=== PATIENT | male | born 1965 ===

== ENCOUNTER 2020-06-12 12:34 | Outpatient (REF) | payer MEDICARE, SELFPAY ==
[2020-06-12 13:50] LABS: INTERNATIONAL NORM RATIO 2.3 (0.9-1.1); Prothrombin Time 27.5 SEC (10.8-13.0)
== END 2020-06-12 12:35 | disposition home or self-care (01) ==
LOC: HO.WFDLDS 12:34
PROVIDERS: PCP Internal Medicine; Visit Provider Internal Medicine
DX: I82.90 Acute embolism and thrombosis of unspecified vein (principal); Z51.81 Encounter for therapeutic drug level monitoring
CPT/HCPCS: 36415; 85610

== ENCOUNTER 2020-06-28 12:27 | Outpatient (REF) | payer MEDICARE, MEDICAID, SELFPAY ==
[2020-06-28 13:23] LABS: Prothrombin Time 24.4 SEC (10.8-13.0)
== END 2020-06-28 12:28 | disposition home or self-care (01) ==
LOC: HO.WFDLDS 12:27
PROVIDERS: Visit Provider Internal Medicine
DX: K55.069 Acute infarction of intestine, part and extent unspecified (principal); Z51.81 Encounter for therapeutic drug level monitoring
CPT/HCPCS: 36415; 85610

== ENCOUNTER 2020-07-18 12:43 | Outpatient (REF) | payer MEDICARE, MEDICAID, SELFPAY ==
[2020-07-18 13:35] LABS: INTERNATIONAL NORM RATIO 1.7 (0.9-1.1); Prothrombin Time 20.5 SEC (10.8-13.0)
== END 2020-07-18 12:44 | disposition home or self-care (01) ==
LOC: HO.WFDLDS 12:43
PROVIDERS: PCP Hospitalist; Visit Provider Internal Medicine
DX: K55.059 Acute (reversible) ischemia of intestine, part and extent unspecified (principal); Z51.81 Encounter for therapeutic drug level monitoring
CPT/HCPCS: 36415; 85610

== ENCOUNTER 2020-09-12 11:58 | Outpatient (REF) | payer MEDICARE, MEDICAID, SELFPAY ==
[2020-09-12 13:39] LABS: INTERNATIONAL NORM RATIO 1.5 (0.9-1.1); Prothrombin Time 18.2 SEC (10.8-13.0)
== END 2020-09-12 11:59 | disposition home or self-care (01) ==
LOC: HO.WFDLDS 11:58
PROVIDERS: Visit Provider Hospitalist
DX: Z86.718 Personal history of other venous thrombosis and embolism (principal)
CPT/HCPCS: 36415; 85610

== ENCOUNTER 2020-09-22 12:15 | Outpatient (REF) | payer MEDICARE, MEDICAID, SELFPAY ==
[2020-09-22 14:14] LABS: INTERNATIONAL NORM RATIO 3.1 (0.9-1.1); Prothrombin Time 37.4 SEC (10.8-13.0)
== END 2020-09-22 12:16 | disposition home or self-care (01) ==
LOC: HO.WFDLDS 12:15
PROVIDERS: Visit Provider Hospitalist
DX: Z86.718 Personal history of other venous thrombosis and embolism (principal); Z79.01 Long term (current) use of anticoagulants; I73.9 Peripheral vascular disease, unspecified
CPT/HCPCS: 36415; 85610

== ENCOUNTER 2020-10-27 12:17 | Outpatient (REF) | payer MEDICARE, MEDICAID, SELFPAY ==
[2020-10-27 14:01] LABS: INTERNATIONAL NORM RATIO 2.3 (0.9-1.1); Prothrombin Time 27.9 SEC (10.8-13.0)
== END 2020-10-27 12:18 | disposition home or self-care (01) ==
LOC: HO.WFDLNP 12:17
PROVIDERS: Visit Provider Hospitalist
DX: Z86.718 Personal history of other venous thrombosis and embolism (principal)
CPT/HCPCS: 85610

== ENCOUNTER 2020-12-21 12:27 | Outpatient (REF) | payer MEDICARE, MEDICAID, SELFPAY ==
[2020-12-21 14:04] LABS: INTERNATIONAL NORM RATIO 3.1 (0.9-1.1); Prothrombin Time 37.5 SEC (10.8-13.0)
== END 2020-12-21 12:28 | disposition home or self-care (01) ==
LOC: HO.WFDLDS 12:27
PROVIDERS: Visit Provider Hospitalist
DX: Z86.718 Personal history of other venous thrombosis and embolism (principal)
CPT/HCPCS: 36415; 85610

== ENCOUNTER 2021-05-15 12:03 | Outpatient (REF) | payer MEDICARE, MEDICAID, SELFPAY ==
[2021-05-15 14:06] LABS: INTERNATIONAL NORM RATIO 1.7 (0.9-1.1); Prothrombin Time 19.3 SEC (9.9-13.0)
[2021-05-15 14:28] LABS: Anion Gap 12 (12-20); Blood Urea Nitrogen 11 mg/dL (9-16); Calcium 9.1 mg/dL (8.4-10.2); Carbon Dioxide 26 mmol/L (22-29); Chloride 106 mmol/L (96-108); Estimated Glomerular Filt Rate > 60; Glucose Fasting 122 mg/dL (60-99); Potassium 4.4 mmol/L (3.3-5.1); Sodium 140 mmol/L (135-145)
== END 2021-05-15 12:04 | disposition home or self-care (01) ==
LOC: HO.WFDLDS 12:03
PROVIDERS: Visit Provider Hospitalist
DX: Z00.00 Encounter for general adult medical examination without abnormal findings (principal); Z86.718 Personal history of other venous thrombosis and embolism
CPT/HCPCS: 36415; 80048; 85610

== ENCOUNTER 2021-06-12 11:49 | Outpatient (REF) | payer MEDICARE, MEDICAID, SELFPAY ==
[2021-06-12 14:05] LABS: INTERNATIONAL NORM RATIO 1.6 (0.9-1.1); Prothrombin Time 18.9 SEC (9.9-13.0)
== END 2021-06-12 11:50 | disposition home or self-care (01) ==
LOC: HO.WFDLDS 11:49
PROVIDERS: Visit Provider Hospitalist
DX: Z86.718 Personal history of other venous thrombosis and embolism (principal)
CPT/HCPCS: 36415; 85610

== ENCOUNTER 2022-01-02 09:13 | Outpatient (REF) | payer OTHER, SELFPAY ==
[2022-01-02 11:48] LABS: Hematocrit 40.9 % (42.0-52.0); Hemoglobin 13.4 g/dl (14.0-18.0); INTERNATIONAL NORM RATIO 2.4 (0.9-1.1); Mean Corpuscular HGB Conc 32.8 g/dl (31.0-36.0); Mean Corpuscular Hemoglobin 30.4 pg (27.0-33.0); Mean Corpuscular Volume 92.7 fL (80.0-98.0); Mean Platelet Volume 10.5 fL (9.4-12.4); Platelet Count 193 X10*3/uL (160-400); Prothrombin Time 27.3 SEC (9.9-13.0); Red Blood Count 4.41 X10*6/uL (4.60-5.80); Red Cell Distribution Width 13.4 % (11.0-16.0); White Blood Count 7.8 X10*3/uL (4.8-10.8)
[2022-01-02 12:18] LABS: TSH reflex Free T4 4.53 uIU/mL (0.32-4.0)
[2022-01-02 12:22] LABS: Alanine Aminotransferase 10 U/L (0-40); Albumin Level 4.2 g/dL (3.5-5.0); Alkaline Phosphatase 73 U/L (39-117); Anion Gap 12 (12-20); Aspartate Amino Transferase 12 U/L (5-37); Bilirubin Total 0.2 mg/dL (0.0-1.0); Blood Urea Nitrogen 12 mg/dL (9-16); Carbon Dioxide 27 mmol/L (22-29); Chloride 106 mmol/L (96-108); Cholesterol 175 mg/dL; Estimated Glomerular Filt Rate > 60; Glucose Fasting 102 mg/dL (60-99); HDL Cholesterol 31 mg/dL; LDL Cholesterol Calculated 113 mg/dl; Potassium 4.6 mmol/L (3.3-5.1); Sodium 140 mmol/L (135-145); Total Protein 7.8 g/dL (6.5-8.0); Triglycerides 157 mg/dL
[2022-01-02 13:11] LABS: Free T4 (Free Thyroxine) 1.03 ng/dL (0.71-1.85)
== END 2022-01-02 09:14 | disposition home or self-care (01) ==
LOC: HO.WFDLDS 09:13
PROVIDERS: Visit Provider Hospitalist
DX: Z00.00 Encounter for general adult medical examination without abnormal findings (principal); Z86.718 Personal history of other venous thrombosis and embolism
CPT/HCPCS: 36415; 80053; 80061; 84439; 84443; 85027; 85610

== ENCOUNTER 2022-10-01 12:09 | Outpatient (REF) | payer OTHER, SELFPAY ==
[2022-10-01 14:01] LABS: INTERNATIONAL NORM RATIO 2.9 (0.9-1.1); Prothrombin Time 35.4 SEC (10.0-13.1)
== END 2022-10-01 12:10 | disposition home or self-care (01) ==
LOC: HO.WFDLDS 12:09
PROVIDERS: Visit Provider Family Medicine
DX: Z79.01 Long term (current) use of anticoagulants (principal)
CPT/HCPCS: 36415; 85610

== ENCOUNTER 2022-12-10 15:03 | Emergency (ER) | payer OTHER, SELFPAY ==
--- NOTE | ~2022-12-10 | XR_ITS ---
EXAMINATION: XR tibia fibula LT 2V, XR tibia fibula RT 2V CLINICAL INFORMATION: Ulcer of the left lower extremity. Ulcer of the right lower extremity. COMPARISON: None. TECHNIQUE: 2 views of the right tibia/fibula. 2 views, 3 images of the left tibia/fibula. FINDINGS: Left tibia/fibula: No fracture or dislocation. Appropriate alignment of the knee and ankle. Diffuse smooth periosteal reaction along the mid to distal fibula. Overlying ulceration at the lateral aspect of the distal aspect of the lower leg. No osseous erosions. Right tibia/fibula: No fracture or cortical disruption. Appropriate alignment at the knee and ankle. Mild soft tissue swelling along the medial aspect of the ankle. No osseous erosions. XR/XR tibia fibula RT 2V IMPRESSION: 1. Soft tissue ulceration at the lateral aspect of the distal left lower leg. Smooth periosteal reaction along the mid to distal left fibula. This is nonspecific. This could be associated with chronic venous stasis. Chronic osteomyelitis possible. 2. No osseous erosions of either lower extremity.
--- NOTE | ~2022-12-10 | XR_ITS ---
EXAMINATION: XR tibia fibula LT 2V, XR tibia fibula RT 2V CLINICAL INFORMATION: Ulcer of the left lower extremity. Ulcer of the right lower extremity. COMPARISON: None. TECHNIQUE: 2 views of the right tibia/fibula. 2 views, 3 images of the left tibia/fibula. FINDINGS: Left tibia/fibula: No fracture or dislocation. Appropriate alignment of the knee and ankle. Diffuse smooth periosteal reaction along the mid to distal fibula. Overlying ulceration at the lateral aspect of the distal aspect of the lower leg. No osseous erosions. Right tibia/fibula: No fracture or cortical disruption. Appropriate alignment at the knee and ankle. Mild soft tissue swelling along the medial aspect of the ankle. No osseous erosions. XR/XR tibia fibula LT 2V IMPRESSION: 1. Soft tissue ulceration at the lateral aspect of the distal left lower leg. Smooth periosteal reaction along the mid to distal left fibula. This is nonspecific. This could be associated with chronic venous stasis. Chronic osteomyelitis possible. 2. No osseous erosions of either lower extremity.
[2022-12-10 15:41] VITALS: BP 95/56; PULSE 55; RESP 18; TEMP 37.2; O2SAT 99; BMI 26.4
--- NOTE | 2022-12-10 15:41 | ED_ITS ---
HPI - Skin/Abscess/Foreign Bdy General Chief complaint: Wound/Laceration <SHANNAN Campos - Last Filed: 12/10/22 15:46> Stated complaint: Ulcer <SHANNAN Campos - Last Filed: 12/10/22 15:46> Time Seen by Provider: 12/10/22 17:43 <SHANNAN Campos - Last Filed: 12/10/22 15:46> Source: patient, family and RN notes reviewed <Carlos Alberto Arroyo - Last Filed: 12/10/22 19:28> Mode of arrival: ambulatory <Carlos Alberto Arroyo - Last Filed: 12/10/22 19:28> Limitations: no limitations <Carlos Alberto Arroyo - Last Filed: 12/10/22 19:28> History of Present Illness HPI narrative: 57-year-old male with past medical history significant for peripheral vascular disease, tobacco dependence presents for evaluation of lower extremity wounds. Patient has had issues with venous stasis ulcers to the lower extremities for the last 15 years He has 1 to the left lateral ankle and 1 to the right medial ankle He reports that he is not diabetic but the wounds are from ?years of working 10- 12 hours on my feet and just neglecting my self. He denies any subjective fevers at home but states that he has had general malaise, decreased appetite, increased pain to the left ankle mostly and increased drainage. He was sent to the ER from [facility] earlier today He is not currently on antibiotics He reports that his symptoms have been worsening over the last 1 week <Carlos Alberto Arroyo - Last Filed: 12/10/22 19:28> Related Data Home medications: Home Medications Medication Instructions Recorded Confirmed buprenorphine 8 mg-naloxone 2 mg 20 mg sublingual DAILY 06/29/20 06/20/21 sublingual film gabapentin 800 mg tablet 800 mg PO QID 06/29/20 06/20/21 Previous Rx's Medication Instructions Recorded nicotine (polacrilex) 4 mg gum 4 mg PO Q2H PRN nicotine cravings 06/29/20 1 month #40 ea warfarin 5 mg tablet 10 mg PO DAILY #180 tabs 09/24/22 cephalexin 500 mg capsule 500 mg PO QID #40 caps 12/10/22 doxycycline hyclate 100 mg tablet 100 mg PO BID #20 tabs 12/10/22 <SHANNAN Campos - Last Filed: 12/10/22 15:46> Allergies/Adverse reactions: Allergies Allergy/AdvReac Type Severity Reaction Status Date / Time latex Allergy Intermediate Rash,Hives Verified 12/10/22 15:41 naproxen Allergy Intermediate Rash,Hives Verified 12/10/22 15:41 <SHANNAN Campos - Last Filed: 12/10/22 15:46> Review of Systems 2 Constitutional: Constitutional: Reports as per HPI, Denies fever(s) and Denies headache(s) <Carlos Alberto Arroyo - Last Filed: 12/10/22 19:28> ENT: Denies headache(s) <Carlos Alberto Arroyo - Last Filed: 12/10/22 19:28> Cardiovascular: Cardiovascular: Denies chest pain and Denies dyspnea <Carlos Alberto Arroyo - Last Filed: 12/10/22 19:28> Respiratory: Respiratory: Denies cough and Denies dyspnea <Carlos Alberto Arroyo - Last Filed: 12/10/22 19:28> Gastrointestinal: Gastrointestinal: Denies abdominal pain, Denies constipation and Denies vomiting <Carlos Alberto Arroyo - Last Filed: 12/10/22 19:28> Genitourinary: Genitourinary: Denies difficulty urinating and Denies dysuria <Carlos Alberto Arroyo - Last Filed: 12/10/22 19:28> Integumentary/Breasts: Skin/Breast: Reports wounds (Ulcer to bilateral lower extremities) <Carlos Alberto Arroyo - Last Filed: 12/10/22 19:28> Neurologic: Denies headache(s) and Denies focal weakness <Carlos Alberto Arroyo - Last Filed: 12/10/22 19:28> [facility] Past Medical History Surgical History: Surgical History No pertinent past surgical history <SHANNAN Campos - Last Filed: 12/10/22 15:46> Family History Family History: Family History Mother No problems noted. Father No problems noted. <SHANNAN Campos - Last Filed: 12/10/22 15:46> Social History Social History: Social History Housing: Apartment Alcohol intake: never Patient Tobacco Use Status: Current everyday Tobacco user Cigarettes Per Day: 10 e-Cigarette/Vaping Use: Never Used Second Hand Smoke Exposure: No Advance Directives: No Advance Directives Information Provided: Yes service: No Current occupational status: disabled <SHANNAN Campos - Last Filed: 12/10/22 15:46> Physical Exam Vital Signs: Vital Signs: Last Vital Signs Temp 99.1 F 12/10/22 18:13 Pulse 63 12/10/22 18:13 Resp 16 12/10/22 18:13 BP 94/60 12/10/22 18:13 Pulse Ox 100 12/10/22 18:13 O2 Del Method Room Air 12/10/22 18:13 BMI result Body Mass Index 26.4 <SHANNAN Campos - Last Filed: 12/10/22 15:46> Vital Signs: Last Vital Signs Temp 99.1 F 12/10/22 18:13 Pulse 63 12/10/22 18:13 Resp 16 12/10/22 18:13 BP 94/60 12/10/22 18:13 Pulse Ox 100 12/10/22 18:13 O2 Del Method Room Air 12/10/22 18:13 BMI result Body Mass Index 26.4 <Carlos Alberto Arroyo - Last Filed: 12/10/22 19:28> Const: General: healthy appearing, comfortable, no acute distress, alert and awake <Carlos Alberto Arroyo - Last Filed: 12/10/22 19:28> Nutritional Appearance: well nourished <Carlos Alberto Arroyo - Last Filed: 12/10/22 19:28> Orientation/consciousness: patient oriented x3 <Carlos Alberto Arroyo - Last Filed: 12/10/22 19:28> HEENT: Head: Yes normocephalic and Yes atraumatic <Carlos Alberto Arroyo - Last Filed: 12/10/22 19:28> Throat: Yes posterior oropharynx normal < Last Filed: 12/10/22 19:28> Eyes: Eyelids: Yes eyelids normal < Last Filed: 12/10/22 19:28> Conjunctivae: conjunctivae normal < Last Filed: 12/10/22 19:28> Sclerae: sclerae normal < Last Filed: 12/10/22 19:28> Corneas: corneas normal < Last Filed: 12/10/22 19:28> Pupils: Equal, round and reactive pupils present < Last Filed: 12/10/22 19:28> EOM: EOMs intact bilaterally < Last Filed: 12/10/22 19:28> Neck: Neck: Yes full ROM < Last Filed: 12/10/22 19:28> Resp: Effort & Inspection: normal respiratory effort, able to speak in com plete sentences, no audible wheezes and not labored < Last Filed: 12/10/22 19:28> Auscultation: clear to auscultation bilaterally < Last Filed: 12/10/22 19:28> Cardio: Rate: regular rate < Last Filed: 12/10/22 19:28> Rhythm: regular rhythm < Last Filed: 12/10/22 19:28> GI: Inspection: No distended < Last Filed: 12/10/22 19:28> Palpation (GI): Soft to palpation, not firm, nontender, no guarding and not rigid < Last Filed: 12/10/22 19:28> Auscultation: normoactive bowel sounds < Last Filed: 19:28> Skin: Other: Patient has a large, unstageable ulcer to left lateral lower extremity. Approximate 12 cm in diameter. He has a smaller stage II ulcer to the right medial lower extremity there is approximately 4 cm in diameter. Chronic venous stasis skin changes surrounding both wounds. Foul-smelling discharge left greater than right wound <Carlos Albertojosue Arroyo - Last Filed: 12/10/22 19:28> Neuro: General: patient oriented x3 <Carlos Alberto Arroyo - Last Filed: 12/10/22 19:28> Cranial nerves: Yes CN's II-XII intact bilaterally, Yes Equal, round and reactive pupils present and Yes Bilaterally intact EOM present <Carlos Alberto Meehany - Last Filed: 12/10/22 19:28> Cognition (Neuro): normal cognition <Carlos Alberto Meehany - Last Filed: 12/10/22 19:28> Course Course Course Narrative: This is an RME: Additional HPI, ROS, PE not included below will be deferred to primary provider. This is a 57-year-old male history of former IV drug abuse, DVT on warfarin presenting to the emergency department with chronic wounds to bilateral lower extremities that have been worsening over the past few days. Patient tells me these wounds are seeping. Was seen at [facility], they told him to come in to be evaluated. In explained to him that he will likely need IV antibiotics. Denies fevers and chills. Physical exam with a large open wound that is seeping to left lower extremity and a smaller wound to the right lower extremity. Plan blood cultures, lactic acid, PT INR, basic labs, x-rays. <SHANNAN Campos - Last Filed: 12/10/22 15:46> Reevaluation(s) Reevaluation #1: Patient has no white count, negative lactic acid, he is afebrile. No evidence of sepsis. We will treat his likely developing infected wounds with cephalexin and doxycycline. The patient will follow up with wound care. He was given return precautions <Carlos Alberto MichelleHarsha - Last Filed: 12/10/22 19:28> Time: 19:25 <Carlos Alberto Arroyo - Last Filed: 12/10/22 19:28> Medications Administered Discontinued Medications Generic Name Dose Route Start Last Admin Trade Name Freq PRN Reason Stop Dose Admin Sodium Chloride 1,000 mls @ 999 mls/hr 12/10/22 18:00 12/10/22 18:18 Ns IV 12/10/22 19:00 999 mls/hr .Q1H1M ROSANNE Administration <SHANNAN Campos - Last Filed: 12/10/22 15:46> Medications Administered Discontinued Medications Generic Name Dose Route Start Last Admin Trade Name Carmen PRN Reason Stop Dose Admin Sodium Chloride 1,000 mls @ 999 mls/hr 12/10/22 18:00 12/10/22 18:18 Ns IV 12/10/22 19:00 999 mls/hr .Q1H1M ROSANNE Administration <Carlos Alberto Arroyo - Last Filed: 12/10/22 19:28> Medical Decision Making Medical Decision Making MDM Narrative: Patient has chronic wounds that appear to be worsening over the last week possibly reflecting acute infection. X-rays are inconclusive for acute osteomyelitis versus chronic changes. Labs are pending at this time. The patient's blood pressure was soft at 95/56. He is not tachycardic, temperature is 99.0?. Labs pending at this time. <Carlos Alberto Arroyo - Last Filed: 12/10/22 19:28> Differential Diagnosis Cellulitis Chronic wounds Osteomyelitis Sepsis <Carlos Alberto Arroyo - Last Filed: 12/10/22 19:28> Lab Data Result Diagrams: 12/10/22 18:08 12/10/22 18:08 <SHANNAN Campos - Last Filed: 12/10/22 15:46> Labs: Lab Results 12/10/22 12/10/22 12/10/22 Range/Units 18:08 18:08 18:08 WBC 8.2 (4.8-10.8) X10*3/uL RBC 4.59 L (4.60-5.80) X10*6/uL Hgb 14.0 (14.0-18.0) g/dl Hct 41.4 L (42.0-52.0) % MCV 90.2 (80.0-98.0) fL MCH 30.5 (27.0-33.0) pg MCHC 33.8 (31.0-36.0) g/dl RDW 14.4 (11.0-16.0) % Plt Count 159 L (160-400) X10*3/uL MPV 9.6 (9.4-12.4) fL Immature Gran % (Auto) 0.2 (0.0-0.4) % Neut % (Auto) 66.2 (45-73) % Lymph % (Auto) 21.4 (20-40) % Glascock % (Auto) 2.9 (2-11) % Eos % (Auto) 8.3 H (0-4) % Baso % (Auto) 1.0 (0-2) % Lymph # (Auto) 1.8 (1.2-4.9) X10*3/uL Glascock # (Auto) 0.2 (0.1-1.2) X10*3/uL Eos # (Auto) 0.7 H (0.0-0.4) X10*3/uL Baso # (Auto) 0.1 (0.0-0.2) X10*3/uL Abs Immat Gran (auto) 0.02 (0.00-0.03) X10*3/uL Absolute Neuts (auto) 5.4 (2.0-8.3) x10*3/uL Absolute Nucleated RBC 0.000 (0.0-0.012) X10*3/uL Nucleated RBC % (auto) 0.0 (0.0-0.2) /100WBC ESR (0-15) MM/HR PT 22.3 H (10.0-13.1) SEC INR 1.9 H (0.9-1.1) Sodium 137 (135-145) mmol/L Potassium 4.5 (3.3-5.1) mmol/L Chloride 103 (96-108) mmol/L Carbon Dioxide 25 (22-29) mmol/L Anion Gap 14 (12-20) BUN 15 (9-16) mg/dL Creatinine 1.14 (0.5-1.4) mg/dL Estim Creat Clear Calc 78.8 Estimated GFR > 60 Random Glucose 197 H (60-115) mg/dL Lactic Acid (0.5-2.0) mmol/L Calcium 8.9 (8.4-10.2) mg/dL Magnesium 2.0 (1.6-2.6) mg/dL Total Bilirubin 0.6 (0.0-1.0) mg/dL AST 9 (5-37) U/L ALT 6 (0-40) U/L Alkaline Phosphatase 74 (39-117) U/L C-Reactive Protein (< or = 0.50) mg/dL C-React Prot High Sens Total Protein 7.5 (6.5-8.0) g/dL Albumin 4.3 (3.5-5.0) g/dL COVID-19 (ADDY) (Negative) COVID-19 Clin Com 12/10/22 12/10/22 12/10/22 Range/Units 18:08 18:08 18:08 WBC (4.8-10.8) X10*3/uL RBC (4.60-5.80) X10*6/uL Hgb (14.0-18.0) g/dl Hct (42.0-52.0) % MCV (80.0-98.0) fL MCH (27.0-33.0) pg MCHC (31.0-36.0) g/dl RDW (11.0-16.0) % Plt Count (160-400) X10*3/uL MPV (9.4-12.4) fL Immature Gran % (Auto) (0.0-0.4) % Neut % (Auto) (45-73) % Lymph % (Auto) (20-40) % Glascock % (Auto) (2-11) % Eos % (Auto) (0-4) % Baso % (Auto) (0-2) % Lymph # (Auto) (1.2-4.9) X10*3/uL Glascock # (Auto) (0.1-1.2) X10*3/uL Eos # (Auto) (0.0-0.4) X10*3/uL Baso # (Auto) (0.0-0.2) X10*3/uL Abs Immat Gran (auto) (0.00-0.03) X10*3/uL Absolute Neuts (auto) (2.0-8.3) x10*3/uL Absolute Nucleated RBC (0.0-0.012) X10*3/uL Nucleated RBC % (auto) (0.0-0.2) /100WBC ESR 27 H (0-15) MM/HR PT (10.0-13.1) SEC INR (0.9-1.1) Sodium (135-145) mmol/L Potassium (3.3-5.1) mmol/L Chloride (96-108) mmol/L Carbon Dioxide (22-29) mmol/L Anion Gap (12-20) BUN (9-16) mg/dL Creatinine (0.5-1.4) mg/dL Estim Creat Clear Calc Estimated GFR Random Glucose (60-115) mg/dL Lactic Acid (0.5-2.0) mmol/L Calcium (8.4-10.2) mg/dL Magnesium (1.6-2.6) mg/dL Total Bilirubin (0.0-1.0) mg/dL AST (5-37) U/L ALT (0-40) U/L Alkaline Phosphatase (39-117) U/L C-Reactive Protein 1.87 H (< or = 0.50) mg/dL C-React Prot High Sens Cancelled Total Protein (6.5-8.0) g/dL Albumin (3.5-5.0) g/dL COVID-19 (ADDY) (Negative) COVID-19 Clin Com 12/10/22 12/10/22 Range/Units 18:09 18:16 WBC (4.8-10.8) X10*3/uL RBC (4.60-5.80) X10*6/uL Hgb (14.0-18.0) g/dl Hct (42.0-52.0) % MCV (80.0-98.0) fL MCH (27.0-33.0) pg MCHC (31.0-36.0) g/dl RDW (11.0-16.0) % Plt Count (160-400) X10*3/uL MPV (9.4-12.4) fL Immature Gran % (Auto) (0.0-0.4) % Neut % (Auto) (45-73) % Lymph % (Auto) (20-40) % Glascock % (Auto) (2-11) % Eos % (Auto) (0-4) % Baso % (Auto) (0-2) % Lymph # (Auto) (1.2-4.9) X10*3/uL Glascock # (Auto) (0.1-1.2) X10*3/uL Eos # (Auto) (0.0-0.4) X10*3/uL Baso # (Auto) (0.0-0.2) X10*3/uL Abs Immat Gran (auto) (0.00-0.03) X10*3/uL Absolute Neuts (auto) (2.0-8.3) x10*3/uL Absolute Nucleated RBC (0.0-0.012) X10*3/uL Nucleated RBC % (auto) (0.0-0.2) /100WBC ESR (0-15) MM/HR PT (10.0-13.1) SEC INR (0.9-1.1) Sodium (135-145) mmol/L Potassium (3.3-5.1) mmol/L Chloride (96-108) mmol/L Carbon Dioxide (22-29) mmol/L Anion Gap (12-20) BUN (9-16) mg/dL Creatinine (0.5-1.4) mg/dL Estim Creat Clear Calc Estimated GFR Random Glucose (60-115) mg/dL Lactic Acid 1.9 (0.5-2.0) mmol/L Calcium (8.4-10.2) mg/dL Magnesium (1.6-2.6) mg/dL Total Bilirubin (0.0-1.0) mg/dL AST (5-37) U/L ALT (0-40) U/L Alkaline Phosphatase (39-117) U/L C-Reactive Protein (< or = 0.50) mg/dL C-React Prot High Sens Total Protein (6.5-8.0) g/dL Albumin (3.5-5.0) g/dL COVID-19 (ADDY) Negative (Negative) COVID-19 Clin Com See Note <SHANNAN Campos - Last Filed: 12/10/22 15:46> Lab Results 12/10/22 12/10/22 12/10/22 Range/Units 18:08 18:08 18:08 WBC 8.2 (4.8-10.8) X10*3/uL RBC 4.59 L (4.60-5.80) X10*6/uL Hgb 14.0 (14.0-18.0) g/dl Hct 41.4 L (42.0-52.0) % MCV 90.2 (80.0-98.0) fL MCH 30.5 (27.0-33.0) pg MCHC 33.8 (31.0-36.0) g/dl RDW 14.4 (11.0-16.0) % Plt Count 159 L (160-400) X10*3/uL MPV 9.6 (9.4-12.4) fL Immature Gran % (Auto) 0.2 (0.0-0.4) % Neut % (Auto) 66.2 (45-73) % Lymph % (Auto) 21.4 (20-40) % Glascock % (Auto) 2.9 (2-11) % Eos % (Auto) 8.3 H (0-4) % Baso % (Auto) 1.0 (0-2) % Lymph # (Auto) 1.8 (1.2-4.9) X10*3/uL Glascock # (Auto) 0.2 (0.1-1.2) X10*3/uL Eos # (Auto) 0.7 H (0.0-0.4) X10*3/uL Baso # (Auto) 0.1 (0.0-0.2) X10*3/uL Abs Immat Gran (auto) 0.02 (0.00-0.03) X10*3/uL Absolute Neuts (auto) 5.4 (2.0-8.3) x10*3/uL Absolute Nucleated RBC 0.000 (0.0-0.012) X10*3/uL Nucleated RBC % (auto) 0.0 (0.0-0.2) /100WBC ESR (0-15) MM/HR PT 22.3 H (10.0-13.1) SEC INR 1.9 H (0.9-1.1) Sodium 137 (135-145) mmol/L Potassium 4.5 (3.3-5.1) mmol/L Chloride 103 (96-108) mmol/L Carbon Dioxide 25 (22-29) mmol/L Anion Gap 14 (12-20) BUN 15 (9-16) mg/dL Creatinine 1.14 (0.5-1.4) mg/dL Estim Creat Clear Calc 78.8 Estimated GFR > 60 Random Glucose 197 H (60-115) mg/dL Lactic Acid (0.5-2.0) mmol/L Calcium 8.9 (8.4-10.2) mg/dL Magnesium 2.0 (1.6-2.6) mg/dL Total Bilirubin 0.6 (0.0-1.0) mg/dL AST 9 (5-37) U/L ALT 6 (0-40) U/L Alkaline Phosphatase 74 (39-117) U/L C-Reactive Protein (< or = 0.50) mg/dL C-React Prot High Sens Total Protein 7.5 (6.5-8.0) g/dL Albumin 4.3 (3.5-5.0) g/dL COVID-19 (ADDY) (Negative) COVID-19 Clin Com 12/10/22 12/10/22 12/10/22 Range/Units 18:08 18:08 18:08 WBC (4.8-10.8) X10*3/uL RBC (4.60-5.80) X10*6/uL Hgb (14.0-18.0) g/dl Hct (42.0-52.0) % MCV (80.0-98.0) fL MCH (27.0-33.0) pg MCHC (31.0-36.0) g/dl RDW (11.0-16.0) % Plt Count (160-400) X10*3/uL MPV (9.4-12.4) fL Immature Gran % (Auto) (0.0-0.4) % Neut % (Auto) (45-73) % Lymph % (Auto) (20-40) % Glascock % (Auto) (2-11) % Eos % (Auto) (0-4) % Baso % (Auto) (0-2) % Lymph # (Auto) (1.2-4.9) X10*3/uL Glascock # (Auto) (0.1-1.2) X10*3/uL Eos # (Auto) (0.0-0.4) X10*3/uL Baso # (Auto) (0.0-0.2) X10*3/uL Abs Immat Gran (auto) (0.00-0.03) X10*3/uL Absolute Neuts (auto) (2.0-8.3) x10*3/uL Absolute Nucleated RBC (0.0-0.012) X10*3/uL Nucleated RBC % (auto) (0.0-0.2) /100WBC ESR 27 H (0-15) MM/HR PT (10.0-13.1) SEC INR (0.9-1.1) Sodium (135-145) mmol/L Potassium (3.3-5.1) mmol/L Chloride (96-108) mmol/L Carbon Dioxide (22-29) mmol/L Anion Gap (12-20) BUN (9-16) mg/dL Creatinine (0.5-1.4) mg/dL Estim Creat Clear Calc Estimated GFR Random Glucose (60-115) mg/dL Lactic Acid (0.5-2.0) mmol/L Calcium (8.4-10.2) mg/dL Magnesium (1.6-2.6) mg/dL Total Bilirubin (0.0-1.0) mg/dL AST (5-37) U/L ALT (0-40) U/L Alkaline Phosphatase (39-117) U/L C-Reactive Protein 1.87 H (< or = 0.50) mg/dL C-React Prot High Sens Cancelled Total Protein (6.5-8.0) g/dL Albumin (3.5-5.0) g/dL COVID-19 (ADDY) (Negative) COVID-19 Clin Com 12/10/22 12/10/22 Range/Units 18:09 18:16 WBC (4.8-10.8) X10*3/uL RBC (4.60-5.80) X10*6/uL Hgb (14.0-18.0) g/dl Hct (42.0-52.0) % MCV (80.0-98.0) fL MCH (27.0-33.0) pg MCHC (31.0-36.0) g/dl RDW (11.0-16.0) % Plt Count (160-400) X10*3/uL MPV (9.4-12.4) fL Immature Gran % (Auto) (0.0-0.4) % Neut % (Auto) (45-73) % Lymph % (Auto) (20-40) % Glascock % (Auto) (2-11) % Eos % (Auto) (0-4) % Baso % (Auto) (0-2) % Lymph # (Auto) (1.2-4.9) X10*3/uL Glascock # (Auto) (0.1-1.2) X10*3/uL Eos # (Auto) (0.0-0.4) X10*3/uL Baso # (Auto) (0.0-0.2) X10*3/uL Abs Immat Gran (auto) (0.00-0.03) X10*3/uL Absolute Neuts (auto) (2.0-8.3) x10*3/uL Absolute Nucleated RBC (0.0-0.012) X10*3/uL Nucleated RBC % (auto) (0.0-0.2) /100WBC ESR (0-15) MM/HR PT (10.0-13.1) SEC INR (0.9-1.1) Sodium (135-145) mmol/L Potassium (3.3-5.1) mmol/L Chloride (96-108) mmol/L Carbon Dioxide (22-29) mmol/L Anion Gap (12-20) BUN (9-16) mg/dL Creatinine (0.5-1.4) mg/dL Estim Creat Clear Calc Estimated GFR Random Glucose (60-115) mg/dL Lactic Acid 1.9 (0.5-2.0) mmol/L Calcium (8.4-10.2) mg/dL Magnesium (1.6-2.6) mg/dL Total Bilirubin (0.0-1.0) mg/dL AST (5-37) U/L ALT (0-40) U/L Alkaline Phosphatase (39-117) U/L C-Reactive Protein (< or = 0.50) mg/dL C-React Prot High Sens Total Protein (6.5-8.0) g/dL Albumin (3.5-5.0) g/dL COVID-19 (ADDY) Negative (Negative) COVID-19 Clin Com See Note <Carlos Alberto Arroyo - Last Filed: 12/10/22 19:28> Discharge Plan Discharge Clinical Impression: Venous stasis ulcers of both lower extremities <SHANNAN Campos - Last Filed: 12/10/22 15:46> Patient Disposition: Home, Self-Care <SHANNAN Campos - Last Filed: 12/10/22 15:46> Instructions: Chronic Wounds (ED) <SHANNAN Campos - Last Filed: 12/10/22 15:46> Additional Instructions: Take both antibiotics as directed for 10 days. Follow-up with wound care as planned. Return for new or worsening symptoms, especially if you develop a fever <SHANNAN Campos - Last Filed: 12/10/22 15:46> Prescriptions: New cephalexin 500 mg capsule 500 mg PO QID Qty: 40 0RF doxycycline hyclate 100 mg tablet 100 mg PO BID Qty: 20 0RF No Action warfarin 5 mg tablet 10 mg PO DAILY Qty: 180 2RF gabapentin 800 mg tablet 800 mg PO QID buprenorphine-naloxone 8-2 mg film 20 mg sublingual DAILY nicotine (polacrilex) 4 mg gum 4 mg PO Q2H PRN (Reason: nicotine cravings) 30 Days Qty: 40 2RF <SHANNAN Campos - Last Filed: 12/10/22 15:46>
[2022-12-10 18:13] VITALS: BP 94/60; PULSE 63; RESP 16; TEMP 37.3; O2SAT 100
[2022-12-10 18:16] LABS: MANUAL DIFF FLAG NO
[2022-12-10] MEDS: 0.9 % Sodium Chloride 1,000 ML 999 ML IV (18:18)
[2022-12-10 18:20] LABS: Basophils Absolute Auto 0.1 X10*3/uL (0.0-0.2); Eosinophils Absolute Auto 0.7 X10*3/uL (0.0-0.4); Eosinophils Percent Auto 8.3 % (0-4); Hematocrit 41.4 % (42.0-52.0); Imm Gran Abs Auto 0.02 X10*3/uL (0.00-0.03); Imm Gran Pct Auto 0.2 % (0.0-0.4); Lymphocytes Absolute Auto 1.8 X10*3/uL (1.2-4.9); Lymphocytes Percent Auto 21.4 % (20-40); Mean Corpuscular HGB Conc 33.8 g/dl (31.0-36.0); Mean Corpuscular Hemoglobin 30.5 pg (27.0-33.0); Mean Corpuscular Volume 90.2 fL (80.0-98.0); Mean Platelet Volume 9.6 fL (9.4-12.4); Monocytes Absolute Auto 0.2 X10*3/uL (0.1-1.2); Monocytes Percent Auto 2.9 % (2-11); Neutrophils Absolute Auto 5.4 x10*3/uL (2.0-8.3); Neutrophils Percent Auto 66.2 % (45-73); Platelet Count 159 X10*3/uL (160-400); Red Blood Count 4.59 X10*6/uL (4.60-5.80); Red Cell Distribution Width 14.4 % (11.0-16.0); White Blood Count 8.2 X10*3/uL (4.8-10.8)
[2022-12-10 18:29] LABS: INTERNATIONAL NORM RATIO 1.9 (0.9-1.1); Prothrombin Time 22.3 SEC (10.0-13.1)
[2022-12-10 18:33] LABS: COVID-19 Test Negative (Negative); IDNOW Serial# 08D9AD1C
[2022-12-10 18:35] LABS: Lactic Acid 1.9 mmol/L (0.5-2.0)
[2022-12-10 18:39] LABS: Alanine Aminotransferase 6 U/L (0-40); Albumin Level 4.3 g/dL (3.5-5.0); Alkaline Phosphatase 74 U/L (39-117); Anion Gap 14 (12-20); Aspartate Amino Transferase 9 U/L (5-37); Bilirubin Total 0.6 mg/dL (0.0-1.0); Blood Urea Nitrogen 15 mg/dL (9-16); Calcium 8.9 mg/dL (8.4-10.2); Carbon Dioxide 25 mmol/L (22-29); Chloride 103 mmol/L (96-108); Creatinine Clr Calc Pharmacy 78.8; Estimated Glomerular Filt Rate > 60; Glucose Random 197 mg/dL (60-115); Potassium 4.5 mmol/L (3.3-5.1); Sodium 137 mmol/L (135-145); Total Protein 7.5 g/dL (6.5-8.0)
--- NOTE | 2022-12-10 18:49 | PC.NURSE ---
Large circular wound to l lateral leg and right medial leg, pictures placed in chart by SHANNAN Carcamo. IV established. +CMS to b/l ext. with +pedal pulsews felt. Labs sent, fluids started.
[2022-12-10 19:05] LABS: C Reactive Protein 1.87 mg/dL (< or = 0.50)
[2022-12-10 19:12] LABS: Erythrocyte Sedimentation Rate 27 MM/HR (0-15)
[2022-12-10] MEDS: Doxycycline Monohydrate 100 MG CAPSULE PO (19:40)
[2022-12-10] MEDS: cephALEXin 500 MG CAPSULE PO (19:40)
[2022-12-10 19:43] VITALS: BP 113/73; PULSE 57; RESP 16; TEMP 36.6; O2SAT 99
--- NOTE | 2022-12-10 21:00 | PC.NURSE ---
this rn wrapped bilateral leg wounds with nonstick dressing and gauze wrap pt tolerated well. pt at bedside. pt ambulatory at discharge. VSS. skin pwd. pt provided with discharge packet. pt verbalized understanding of discharge plan
== END 2022-12-10 21:16 | disposition home or self-care (01) ==
PROVIDERS: Physician Assistant; Emergency Provider Emergency Medicine; PCP Hospitalist
DX: I83.218 Varicose veins of right lower extremity with both ulcer of other part of lower extremity and inflammation (principal); I83.228 Varicose veins of left lower extremity with both ulcer of other part of lower extremity and inflammation; F11.20 Opioid dependence, uncomplicated; F17.200 Nicotine dependence, unspecified, uncomplicated; Z20.822 Contact with and (suspected) exposure to COVID-19
CPT/HCPCS: 36415; 73590; 80053; 83605; 83735; 85025; 85610; 85652; 86140; 87040; 87635; 99283; 99284

== ENCOUNTER 2023-04-09 14:53 | Inpatient (IN) | payer OTHER, SELFPAY ==
[2023-04-09 14:57] VITALS: BP 125/68; PULSE 77; RESP 14; TEMP 37; O2SAT 99; BMI 30.5
--- NOTE | 2023-04-09 14:58 | ED.GENADULT ---
HPI - General Adult General Chief complaint: Wound/Laceration Stated complaint: R and L Leg Wound Time Seen by Provider: 04/09/23 17:18 Source: patient Mode of arrival: ambulatory Limitations: no limitations History of Present Illness HPI narrative: Patient comes to the emergency room complaining of maggots in his left lower extremity. Patient states that 2 days ago he noted that under an eschar, there were maggots falling off. Today, patient removed the eschar and more maggots came out. Patient went to the [facility], they rinsed the wound and remove as many meds as possible, sent the patient to emergency room. Patient complaining of localized pain, no fever chills. Related Data Home Medications Medication Instructions Recorded Confirmed buprenorphine 8 mg-naloxone 2 mg 2 film sublingual DAILY 06/29/20 04/09/23 sublingual film gabapentin 800 mg tablet 800 mg PO QID 06/29/20 04/09/23 warfarin 5 mg tablet 7.5 mg PO DAILY 04/09/23 04/09/23 Previous Rx's Medication Instructions Recorded nicotine (polacrilex) 4 mg gum 4 mg PO Q2H PRN nicotine cravings 06/29/20 1 month #40 ea Allergies Allergy/AdvReac Type Severity Reaction Status Date / Time latex Allergy Intermediate Rash,Hives Verified 12/10/22 15:41 naproxen Allergy Intermediate Rash,Hives Verified 12/10/22 15:41 Review of Systems Review of Systems: Constitutional : No Weight loss, No Fever, No Chills, No Night Sweats, No Fatigue, No Malaise ENT/Mouth : No Hearing loss, No Ear Pain, No Nasal Congestion, No Sinus Pain, No Hoarseness, No sore throat, No Rhinorrhea, No Swallowing Difficulty Eyes: No Eye Pain, No Swelling, No Redness, No Foreign Body, No Discharge, No Vision Changes Cardiovascular : No Chest Pain, No SOB, No Dyspnea on Exertion, No Orthopnea, No Edema, No Palpitations Respiratory : No Cough, No Sputum, No Wheezing, No Smoke Exposure, No Dyspnea Gastrointestinal : No Nausea, No Vomiting, No Diarrhea, No Constipation, No abdominal Pain, No Hematochezia, No Melena Genitourinary : no irregular bleeding, No Dysuria, No Urinary Frequency, No Hematuria, No Urinary Incontinence, No Urgency, No Flank Pain, No Urinary Flow Changes, No Hesitancy Musculoskeletal : No joint pain, No Myalgias, No Joint Swelling Skin : Complaining of a chronic left lower extremity wound with maggots and localized pain Neuro : No Weakness, No Numbness, No Paresthesias, No Loss of Consciousness, No Dizziness, No Headache Psych : No Anxiety/Panic, No Depression, No SI/HI/AH/VH, No Social Issues, Heme/Lymph: No Bruising, No Bleeding,No Lymphadenopathy Endocrine : No Polyuria, No Polydipsia, No Temperature Intolerance [facility] Past Medical History Medical History (Updated 04/09/23 @ 18:34 by Jenn Jefferson MD) Opioid use disorder Peripheral vascular disease of extremity Venous thromboembolism Surgical History No pertinent past surgical history Family History Family History Mother No problems noted. Father No problems noted. Social History Social History Housing: Apartment Alcohol intake: never Patient Tobacco Use Status: Current everyday Tobacco user Cigarettes Per Day: 10 Smoked in Last 30 Days: Yes e-Cigarette/Vaping Use: Never Used Second Hand Smoke Exposure: No Use of substances other than those prescribed or required for medical reasons: No Advance Directives: No Advance Directives Information Provided: Yes service: No Current occupational status: disabled Physical Exam ED Vital Signs: Vital Signs - 24 hr 04/09/23 14:57 04/09/23 17:50 Temperature 98.6 F Pulse Rate 77 64 Respiratory Rate 14 Blood Pressure 125/68 125/74 Pulse Oximetry 99 99 Oxygen Delivery Method Room Air Room Air BMI result Body Mass Index 30.5 Const Other: Appearance: Alert. Oriented X3. No acute distress. Eyes: Pupils equal, round and reactive to light. ENT: Pharynx normal. Neck: Normal inspection. Neck supple. No lymph nodes noted. No crepitus CVS: Normal heart rate and rhythm. Pulses normal. Normal S1 and S2 Respiratory: No respiratory distress. Breath sounds normal. No Wheezing. No rales Abdomen: Soft and nontender. No rigidity. No distention. Skin: Skin warm and dry. Normal skin color. See extremity below Extremities: No lower extremity edema. Chronic wound 1 cm x 1 cm in the right lower extremity, no maggots present. Chronic 10 cm wound with maggots present, see pictures below Neuro: Oriented X 3. No motor deficit. No sensory deficit. Moving all extremities. No slurred speech. CN 2 through 12 grossly intact Psych: calm, cooperative, normal affect Course Course Course Narrative: RME: 57-year-old male with past medical history significant for peripheral vascular disease, tobacco dependence presents for evaluation of maggots to E, sent in by wound care. Patient reports he noted maggots 2 days ago. Admits wound care cleaned out as many maggots as they could and was sent to the ED Lower extremities bilaterally wrapped, not evaluated in triage Labs including lactic/blood cultures ordered Full HPI, ROS and PE to be performed by primary ED provider. Medications Administered Generic Name Dose Route Start Last Admin Trade Name Freq PRN Reason Stop Dose Admin Sodium Chloride 1,000 mls @ 999 mls/hr 04/09/23 17:55 04/09/23 18:09 Ns IVCONT 04/09/23 18:55 999 mls/hr .Q1H1M ONE Administration Discontinued Medications Generic Name Dose Route Start Last Admin Trade Name Freq PRN Reason Stop Dose Admin Piperacillin Sod/Tazobactam 50 mls @ 100 mls/hr 04/09/23 17:55 04/09/23 18:09 Sod 3.375 gm/ Sodium Chloride IV 04/09/23 18:24 100 mls/hr ONCE ONE Administration Medical Decision Making Medical Decision Making [facility] Narrative: -my interpretation of labs: White blood cell count 7.5, lactic acid normal. Vital stable, not hypotensive, not tachycardic, Sepsis not suspected. -patient was started on IV fluids, Zosyn and vancomycin -recommendations for dressing from Dr. Ward: Jw, wet to dry -I discussed the patient with Dr. Flores, patient being admitted Differential Diagnosis Differential Diagnoses: The differential diagnosis associated with the presentation includes (Cellulitis, abscess, chronic wound) Admission/Observation Consideration of admission/observation: Escalation of care including admission/observation considered Consult Healthcare Provider Management of the patient was discussed with: Hospitalist and Paste Thinner Lab Data [facility] Lab Attestation statement: I reviewed the patient's lab results. 04/09/23 15:52 04/09/23 15:52 Labs: Lab Results 04/09/23 04/09/23 04/09/23 Range/Units 15:52 15:52 15:52 WBC 7.5 (4.8-10.8) X10*3/uL RBC 4.16 L (4.60-5.80) X10*6/uL Hgb 12.7 L (14.0-18.0) g/dl Hct 37.7 L (42.0-52.0) % MCV 90.6 (80.0-98.0) fL MCH 30.5 (27.0-33.0) pg MCHC 33.7 (31.0-36.0) g/dl RDW 13.9 (11.0-16.0) % Plt Count 167 (160-400) X10*3/uL MPV 9.6 (9.4-12.4) fL Immature Gran % (Auto) 0.1 (0.0-0.4) % Neut % (Auto) 39.4 L (45-73) % Lymph % (Auto) 31.9 (20-40) % [place] % (Auto) 6.6 (2-11) % Eos % (Auto) 21.2 H (0-4) % Baso % (Auto) 0.8 (0-2) % Lymph # (Auto) 2.4 (1.2-4.9) X10*3/uL [place] # (Auto) 0.5 (0.1-1.2) X10*3/uL Eos # (Auto) 1.6 H (0.0-0.4) X10*3/uL Baso # (Auto) 0.1 (0.0-0.2) X10*3/uL Abs Immat Gran (auto) 0.01 (0.00-0.03) X10*3/uL Absolute Neuts (auto) 2.9 (2.0-8.3) x10*3/uL Absolute Nucleated RBC 0.000 (0.0-0.012) X10*3/uL Nucleated RBC % (auto) 0.0 (0.0-0.2) /100WBC Smear Tech's Comments VERIFIED PT 13.3 (11.1-13.3) SEC INR 1.1 (0.9-1.1) Sodium 136 (135-145) mmol/L Potassium 4.3 (3.3-5.1) mmol/L Chloride 107 (96-108) mmol/L Carbon Dioxide 22 (22-29) mmol/L Anion Gap 11 L (12-20) BUN 11 (9-16) mg/dL Creatinine 1.05 (0.5-1.4) mg/dL Estim Creat Clear Calc 93.6 Estimated GFR > 60 Random Glucose 125 H (60-115) mg/dL Lactic Acid (0.5-2.0) mmol/L Calcium 8.8 (8.4-10.2) mg/dL Magnesium 2.3 (1.6-2.6) mg/dL Total Bilirubin 0.4 (0.0-1.0) mg/dL Direct Bilirubin 0.1 (0.0-0.5) mg/dL AST 10 (5-37) U/L ALT 6 (0-40) U/L Alkaline Phosphatase 77 (39-117) U/L Total Protein 7.9 (6.5-8.0) g/dL Albumin 3.8 (3.5-5.0) g/dL 04/09/23 Range/Units 15:52 WBC (4.8-10.8) X10*3/uL RBC (4.60-5.80) X10*6/uL Hgb (14.0-18.0) g/dl Hct (42.0-52.0) % MCV (80.0-98.0) fL MCH (27.0-33.0) pg MCHC (31.0-36.0) g/dl RDW (11.0-16.0) % Plt Count (160-400) X10*3/uL MPV (9.4-12.4) fL Immature Gran % (Auto) (0.0-0.4) % Neut % (Auto) (45-73) % Lymph % (Auto) (20-40) % [place] % (Auto) (2-11) % Eos % (Auto) (0-4) % Baso % (Auto) (0-2) % Lymph # (Auto) (1.2-4.9) X10*3/uL [place] # (Auto) (0.1-1.2) X10*3/uL Eos # (Auto) (0.0-0.4) X10*3/uL Baso # (Auto) (0.0-0.2) X10*3/uL Abs Immat Gran (auto) (0.00-0.03) X10*3/uL Absolute Neuts (auto) (2.0-8.3) x10*3/uL Absolute Nucleated RBC (0.0-0.012) X10*3/uL Nucleated RBC % (auto) (0.0-0.2) /100WBC Smear Tech's Comments PT (11.1-13.3) SEC INR (0.9-1.1) Sodium (135-145) mmol/L Potassium (3.3-5.1) mmol/L Chloride (96-108) mmol/L Carbon Dioxide (22-29) mmol/L Anion Gap (12-20) BUN (9-16) mg/dL Creatinine (0.5-1.4) mg/dL Estim Creat Clear Calc Estimated GFR Random Glucose (60-115) mg/dL Lactic Acid 1.0 (0.5-2.0) mmol/L Calcium (8.4-10.2) mg/dL Magnesium (1.6-2.6) mg/dL Total Bilirubin (0.0-1.0) mg/dL Direct Bilirubin (0.0-0.5) mg/dL AST (5-37) U/L ALT (0-40) U/L Alkaline Phosphatase (39-117) U/L Total Protein (6.5-8.0) g/dL Albumin (3.5-5.0) g/dL Critical Care Time Critical Care Time Critical Care Time: Yes Total Critical Care Time: 60 Attestation: I have personally provided critical care time. Time includes review of lab data, radiology results, discussion with consultants, and monitoring for potential decompensation. Intervention performed as documented. Discharge Plan Discharge Clinical Impression: Maggot infestation, Cellulitis of anterior lower leg Patient Disposition: Admitted As Inpatient Prescriptions: No Action warfarin 5 mg tablet 7.5 mg PO DAILY gabapentin 800 mg tablet 800 mg PO QID buprenorphine-naloxone 8-2 mg film 2 film sublingual DAILY nicotine (polacrilex) 4 mg gum 4 mg PO Q2H PRN (Reason: nicotine cravings) 30 Days Qty: 40 2RF
[2023-04-09 16:02] LABS: Basophils Absolute Auto 0.1 X10*3/uL (0.0-0.2); Basophils Percent Auto 0.8 % (0-2); Eosinophils Absolute Auto 1.6 X10*3/uL (0.0-0.4); Eosinophils Percent Auto 21.2 % (0-4); Hematocrit 37.7 % (42.0-52.0); Hemoglobin 12.7 g/dl (14.0-18.0); Imm Gran Abs Auto 0.01 X10*3/uL (0.00-0.03); Imm Gran Pct Auto 0.1 % (0.0-0.4); Lymphocytes Absolute Auto 2.4 X10*3/uL (1.2-4.9); Lymphocytes Percent Auto 31.9 % (20-40); MANUAL DIFF FLAG SCAN; Mean Corpuscular HGB Conc 33.7 g/dl (31.0-36.0); Mean Corpuscular Hemoglobin 30.5 pg (27.0-33.0); Mean Corpuscular Volume 90.6 fL (80.0-98.0); Mean Platelet Volume 9.6 fL (9.4-12.4); Monocytes Absolute Auto 0.5 X10*3/uL (0.1-1.2); Monocytes Percent Auto 6.6 % (2-11); Neutrophils Absolute Auto 2.9 x10*3/uL (2.0-8.3); Neutrophils Percent Auto 39.4 % (45-73); Platelet Count 167 X10*3/uL (160-400); Red Blood Count 4.16 X10*6/uL (4.60-5.80); Red Cell Distribution Width 13.9 % (11.0-16.0); SCAN SMEAR FLAG 1; White Blood Count 7.5 X10*3/uL (4.8-10.8)
--- NOTE | 2023-04-09 16:02 | MHC.EDTECH ---
PATIENT BLOOD DRAWN INCLUDING 1 SETS OF BLOOD CULTURE AND LACTIC ACID WAS DRAWN ON TOP OF PATIENT LEFT HAND ,2ND SETS OF BLOOD CULTURE DRAWN ON TOP OF PATIENT RIGHT HAND ALL SENT TO LAB .
[2023-04-09 16:08] LABS: INTERNATIONAL NORM RATIO 1.1 (0.9-1.1); Prothrombin Time 13.3 SEC (11.1-13.3)
[2023-04-09 16:17] LABS: Alanine Aminotransferase 6 U/L (0-40); Albumin Level 3.8 g/dL (3.5-5.0); Alkaline Phosphatase 77 U/L (39-117); Anion Gap 11 (12-20); Aspartate Amino Transferase 10 U/L (5-37); Bilirubin Direct 0.1 mg/dL (0.0-0.5); Bilirubin Total 0.4 mg/dL (0.0-1.0); Blood Urea Nitrogen 11 mg/dL (9-16); Calcium 8.8 mg/dL (8.4-10.2); Carbon Dioxide 22 mmol/L (22-29); Chloride 107 mmol/L (96-108); Creatinine Clr Calc Pharmacy 93.6; Estimated Glomerular Filt Rate > 60; Glucose Random 125 mg/dL (60-115); Magnesium 2.3 mg/dL (1.6-2.6); Potassium 4.3 mmol/L (3.3-5.1); Sodium 136 mmol/L (135-145); Total Protein 7.9 g/dL (6.5-8.0)
[2023-04-09 17:07] LABS: SLIDE REVIEW VERIFIED
--- NOTE | 2023-04-09 17:44 | PC.NURSE ---
pt a&o x4, calm, and cooperative. reporting 9/10 pain with large wound to lateral left lower extremity. pt changed over to hospital attire, 20G IV placed to RAC. Dr. Jefferson removed 4 maggots from wound. small wound to medial RLE, but pt denies pain. call shafer within reach. all pt needs met gregory
[2023-04-09 17:50] VITALS: BP 125/74; PULSE 64; O2SAT 99
--- NOTE | 2023-04-09 18:02 | PHA.MEDREC ---
Pharmacy Consult ? Medication Reconciliation Pharmacy has completed the medication reconciliation. He ran out of his warfarin about 3 days so his INR is most likely low. Patient reprot gabapenitn 1 tablet QID instead of 2 tablet BID as prescription states. Valencia Gutierrez, PharmD
[2023-04-09] MEDS: Piperacillin Sodium/Tazobactam 3.375 GM in 0.9 % Sodium Chloride 50 ML IV (18:09)
[2023-04-09] MEDS: 0.9 % Sodium Chloride 1,000 ML 999 ML IVCONT (18:09)
--- NOTE | 2023-04-09 18:40 | P.HPHOSP_ITS ---
History of Present Illness Date of Service: 04/09/23 Chief Complaint: Maggots in wound A 57 years old male with PMH of PAD, chronic wounds, smoker w Hx of substance abuse on Suboxone who presents to the hospital with LLE chronic wound infestation with maggots. The patienr reports that he did not get supplies or medications for the last 3 days. stating that 2 days ago he noticed maggots falling off his wound as there was an eschar there so he cut it out including part of the muscle and was able to remove more maggots. Went to wound clinic where the wound was rinsed with removal of more maggots. He denies any fever or chills but reports increase drainage and pain in the wound. Admitted for further management and surgical evaluation. Review of Systems Review of Systems: No fever, chills or weakness No chest pain, palpitation No shortness of breath or coughing No abdominal pain, nausea or vomiting No urinary symptoms reporting maggots falling off the wound, increase drainage from the wound PMFSH Medical History Opioid use disorder Peripheral vascular disease of extremity Venous thromboembolism Family History Mother No problems noted. Father No problems noted. Surgical History No pertinent past surgical history Social History Housing: Apartment Alcohol intake: never Patient Tobacco Use Status: Current everyday Tobacco user Cigarettes Per Day: 10 Smoked in Last 30 Days: Yes e-Cigarette/Vaping Use: Never Used Second Hand Smoke Exposure: No Use of substances other than those prescribed or required for medical reasons: No Advance Directives: No Advance Directives Information Provided: Yes service: No Current occupational status: disabled Meds Allergies Allergy/AdvReac Type Severity Reaction Status Date / Time latex Allergy Intermediate Rash,Hives Verified 12/10/22 15:41 naproxen Allergy Intermediate Rash,Hives Verified 12/10/22 15:41 Active Medications: Current Medications Vancomycin HCl (Vancomycin/Ns) 2,000 mg in 500 mls @ 250 mls/hr IV ONCE ONE Stop: 04/09/23 19:54 Sodium Chloride (Ns) 1,000 mls @ 999 mls/hr IVCONT .Q1H1M ONE Stop: 04/09/23 18:55 Last Admin: 04/09/23 18:09 Dose: 999 mls/hr Pharmacy Consult (Consult Rx Perform Med Rec) 1 each MISCELLANE ONCE PRN PRN Reason: Consult order Home Medications Medication Instructions Recorded Confirmed Last Taken Type buprenorphine 8 mg-naloxone 2 mg 2 film sublingual DAILY 06/29/20 04/09/23 04/09/23 History sublingual film gabapentin 800 mg tablet 800 mg PO QID 06/29/20 04/09/23 04/09/23 History warfarin 5 mg tablet 7.5 mg PO DAILY 04/09/23 04/09/23 3 Days Ago History ~04/06/23 Physical Exam Vital Signs and Narrative: Vital Signs: Last Vital Signs Temp 98.6 F 04/09/23 14:57 Pulse 64 04/09/23 17:50 Resp 14 04/09/23 14:57 BP 125/74 04/09/23 17:50 Pulse Ox 99 04/09/23 17:50 O2 Del Method Room Air 04/09/23 17:50 BMI result Body Mass Index 30.5 Const: Other: Constitutional : Awake, interactive, not in distress Neck : Normal inspection, Supple Cardiovascular : RRR, no JVP, no lower extremity edema Respiratory : good bilateral air entry, no crackles, wheezes or rhonchi Gastrointestinal: soft, lax, Normal bowel sounds, Non tender Skin : Warm, Dry Neurological : Alert & oriented x3, No focal deficit , CN 2-12 within normal Skin: Chronic wound 1 cm x 1 cm in the RLE w no drainage or maggots. LLE Chronic 8x10 cm wound with no more maggots seen Results Labs 04/09/23 15:52 04/09/23 15:52 Labs: Laboratory Results - last 24 hr 04/09/23 04/09/23 04/09/23 15:52 15:52 15:52 MCV 90.6 MCH 30.5 MCHC 33.7 RDW 13.9 Plt Count 167 MPV 9.6 Immature Gran % (Auto) 0.1 Neut % (Auto) 39.4 L Lymph % (Auto) 31.9 [place] % (Auto) 6.6 Eos % (Auto) 21.2 H Baso % (Auto) 0.8 Lymph # (Auto) 2.4 [place] # (Auto) 0.5 Eos # (Auto) 1.6 H Baso # (Auto) 0.1 Abs Immat Gran (auto) 0.01 Absolute Neuts (auto) 2.9 Absolute Nucleated RBC 0.000 Nucleated RBC % (auto) 0.0 Smear Tech's Comments VERIFIED PT 13.3 INR 1.1 Anion Gap 11 L Estim Creat Clear Calc 93.6 Estimated GFR > 60 Random Glucose 125 H Lactic Acid Calcium 8.8 Magnesium 2.3 Total Bilirubin 0.4 Direct Bilirubin 0.1 AST 10 ALT 6 Alkaline Phosphatase 77 Total Protein 7.9 Albumin 3.8 04/09/23 15:52 MCV MCH MCHC RDW Plt Count MPV Immature Gran % (Auto) Neut % (Auto) Lymph % (Auto) [place] % (Auto) Eos % (Auto) Baso % (Auto) Lymph # (Auto) [place] # (Auto) Eos # (Auto) Baso # (Auto) Abs Immat Gran (auto) Absolute Neuts (auto) Absolute Nucleated RBC Nucleated RBC % (auto) Smear Tech's Comments PT INR Anion Gap Estim Creat Clear Calc Estimated GFR Random Glucose Lactic Acid 1.0 Calcium Magnesium Total Bilirubin Direct Bilirubin AST ALT Alkaline Phosphatase Total Protein Albumin Assessment and Plan (1) Maggot infestation: Status: Acute (2) Cellulitis of anterior lower leg: Status: Acute (3) Peripheral vascular disease of extremity: Status: Acute (4) Subtherapeutic anticoagulation: Status: Acute Plan A 57 years old male with PMH of PAD, chronic wounds, smoker w Hx of substance abuse on Suboxone who presents to the hospital with LLE chronic wound infe station with maggots. Chronic LE wound with cellulitis Clindamycin IV wound care nurse consult dressing Chronic wound with maggot infestation Treated with Hydrogen peroxide related to PAD to get Vascular surgery evaluation Subtherapeutic INR ran out of Warfarin restart warfarin and bridge with Lovenox DVT PPx Lovenox The patient will likely need 2 overnight hospital stay for treatment of cellulitis pending surgical evaluation Time Spent With Patient Time: Total time managing care of this patient today ____ minutes. Quality Stroke Does the patient have a stroke diagnosis?: No VTE Prior VTE?: No VTE Risk Level:: Medical - moderate - high VTE Device Contraindication: Treatment Not Indicated VTE Drug Contraindication: N/A - Med Ordered
[2023-04-09 18:59] VITALS: BP 124/70; PULSE 59; RESP 18; O2SAT 95
[2023-04-09] MEDS: vancomycin/NS 2,000 MG/500 ML PLAST..BAG 250 MG IV (19:14)
[2023-04-09] MEDS: Morphine Sulfate 2 MG/ML CARTRIDGE IVPUSH ×2 (19:14→22:32)
[2023-04-09] MEDS: Warfarin Sodium 7.5 MG TABLET PO (20:04)
[2023-04-09] MEDS: NeoMY/Polymyx/Bacit/Ointment 14 GM Tube TOPICAL (20:05)
--- NOTE | 2023-04-09 20:17 | PC.NURSE ---
Pt given IV morphine per order for 9-10/10 pain in left leg and request for wound to be dressed. Discussed with ordered antibiotic ointment and wet t dry dressing. Dressing completed by this RN. Pt stable still endorsing pain.
--- NOTE | 2023-04-09 20:19 | PC.NURSE ---
This RN attempt to call report to Mag in room 363. Nurse unavailable for report at this time.
--- NOTE | 2023-04-09 20:27 | P.CONGS_ITS ---
History of Present Illness Consult details Consult date: 04/09/23 Requesting physician: Lito Flores Narrative: The patient is a 57-year-old male who is well known to us at wound care. He has had chronic left lower leg wounds and has not been very compliant with his care. In fact the last time he has been to the wound care clinic has been 2 months ago and he says that he can not make his appointments because he does not have transportation with the transportation gets lost and as a result he has not been coming in for debridement and care in getting orders renewed for his supplies. He came in today for an appointment because he saw maggots on his wound he says this morning. Review of Systems Review of Systems: Yes all other systems are reviewed and are negative PMFSH Past Medical History Medical History Opioid use disorder Peripheral vascular disease of extremity Venous thromboembolism Family History Family History Mother No problems noted. Father No problems noted. Surgical History Surgical History No pertinent past surgical history Social History Social History Housing: Apartment Alcohol intake: never Patient Tobacco Use Status: Current everyday Tobacco user Cigarettes Per Day: 10 Smoked in Last 30 Days: Yes e-Cigarette/Vaping Use: Never Used Second Hand Smoke Exposure: No Use of substances other than those prescribed or required for medical reasons: No Advance Directives: No Advance Directives Information Provided: Yes service: No Current occupational status: disabled Meds Allergies Allergy/AdvReac Type Severity Reaction Status Date / Time latex Allergy Intermediate Rash,Hives Verified 12/10/22 15:41 naproxen Allergy Intermediate Rash,Hives Verified 12/10/22 15:41 Active Medications: Current Medications Acetaminophen (Acetaminophen 325 Mg Tablet) 650 mg PO Q6H PRN PRN Reason: Pain, Mild (Pain Scale 1-3) Buprenorphine/Naloxone (Buprenorphine/Naloxone 8/2 Mg Film) 2 film SUBLINGUAL DAILY ROSANNE Enoxaparin Sodium (Enoxaparin Sodium 40 Mg/0.4 Ml Syringe) 40 mg SUBCUT Q24H ROSANNE Gabapentin (Gabapentin 400 Mg Capsule) 800 mg PO QID [facility] Clindamycin Phosphate (Cleocin) 600 mg in 50 mls @ 100 mls/hr IV Q6H ROSANNE Morphine Sulfate (Morphine Sulfate 2 Mg/Ml Cartridge) 2 mg IVPUSH Q4H PRN; Protocol PRN Reason: Pain, Severe (Pain Scale 7-10) Last Admin: 04/09/23 19:14 Dose: 2 mg Neomycin/Polymyxin/Bacitracin (Neomy/Polymyx/Bacit/Ointment 14 Gm Tube) 1 gm TOPICAL DAILY ROSANNE; Protocol Last Admin: 04/09/23 20:05 Dose: 1 gm Nicotine Polacrilex (Nicotine Polacrilex 2 Mg Gum) 4 mg BUCCAL Q2H PRN PRN Reason: nicotine cravings Pharmacy Consult (Consult Rx Perform Med Rec) 1 each MISCELLANE ONCE PRN PRN Reason: Consult order Sodium Chloride (0.9 % Sodium Chloride Flush 3 Ml Syringe) 3 ml IVFLUSH QSHIFT [facility] Sodium Hypochlorite (Sodium Hypochlorite 0.125% 473 Ml Solution) 1 appl TOPICAL DAILY [facility] Warfarin Sodium (Warfarin Sodium 7.5 Mg Tablet) 7.5 mg PO DAILY@1800 ROSANNE Last Admin: 04/09/23 20:04 Dose: 7.5 mg Home Medications Medication Instructions Recorded Confirmed Last Taken Type buprenorphine 8 mg-naloxone 2 mg 2 film sublingual DAILY 06/29/20 04/09/23 04/09/23 History sublingual film gabapentin 800 mg tablet 800 mg PO QID 06/29/20 04/09/23 04/09/23 History warfarin 5 mg tablet 7.5 mg PO DAILY 04/09/23 04/09/23 3 Days Ago History ~04/06/23 Physical Exam Vital Signs: Vital Signs: Last Vital Signs Temp 98.6 F 04/09/23 14:57 Pulse 59 04/09/23 18:59 Resp 18 04/09/23 18:59 BP 124/70 04/09/23 18:59 Pulse Ox 95 04/09/23 18:59 O2 Del Method Room Air 04/09/23 18:59 BMI result Body Mass Index 30.5 Const: General: cooperative, healthy appearing and no acute distress Skin: Other: Patient has low large left lateral lower leg extremity wound down into the subcutaneous fatty tissue and muscle area which is little foul smelling and has moderate fibrinous exudate and some necrotic tissue around the edges. Very tender to palpation. He has palpable pedal pulses. Results Labs 04/09/23 15:52 04/09/23 15:52 Labs: Abnormal lab results 04/09/23 04/09/23 Range/Units 15:52 15:52 RBC 4.16 L (4.60-5.80) X10*6/uL Hgb 12.7 L (14.0-18.0) g/dl Hct 37.7 L (42.0-52.0) % Neut % (Auto) 39.4 L (45-73) % Eos % (Auto) 21.2 H (0-4) % Eos # (Auto) 1.6 H (0.0-0.4) X10*3/uL Anion Gap 11 L (12-20) Random Glucose 125 H (60-115) mg/dL Short CBC 04/09/23 Range/Units 15:52 WBC 7.5 (4.8-10.8) X10*3/uL Hgb 12.7 L (14.0-18.0) g/dl Hct 37.7 L (42.0-52.0) % Plt Count 167 (160-400) X10*3/uL BMP 04/09/23 15:52 Sodium 136 Potassium 4.3 Chloride 107 Carbon Dioxide 22 BUN 11 Creatinine 1.05 Calcium 8.8 Liver Function 04/09/23 Range/Units 15:52 Total Bilirubin 0.4 (0.0-1.0) mg/dL Direct Bilirubin 0.1 (0.0-0.5) mg/dL AST 10 (5-37) U/L ALT 6 (0-40) U/L Alkaline Phosphatase 77 (39-117) U/L Albumin 3.8 (3.5-5.0) g/dL All other labs normal. Assessment and Plan (1) Maggot infestation: Status: Acute Plan Patient is a 57-year-old male with chronic lower extremity wounds probably s econdary to ulcerations and venous hypertension. These wounds are chronic and he is not a very compliant patient. Came in today to wound care today as more necrosis of the tissue as well as maggots present. Wounds were cleaned and then patient sent to the emergency room. Here consultation to surgery was carried out and plan is to debride this under sedation. Dakin's solution right now for dressing changes. Would image the leg with MRI to rule out chronic osteo of the tibia shaft. Time Spent With Patient Time: Total time managing care of this patient today ____ minutes. Procedures Date of Service Date of Service: 04/09/23
[2023-04-09] MEDS: Gabapentin 400 MG CAPSULE 800 MG PO (22:11)
[2023-04-09] MEDS: Clindamycin Phosphate/D5W 600 MG/50 ML PIGGYBACK 100 MG IV (22:11)
[2023-04-09 23:52] VITALS: BP 137/69; PULSE 64; RESP 18; TEMP 36; O2SAT 99
[2023-04-10] VITALS (14 sets, daily range): BP systolic 106–174; BP diastolic 58–94; PULSE 52–65; RESP 14–20; TEMP 36–36.5; O2SAT 96–98
[2023-04-10] MEDS: Clindamycin Phosphate/D5W 600 MG/50 ML PIGGYBACK 100 MG IV ×3 (05:24→21:40)
[2023-04-10 06:53] LABS: Hemoglobin 11.1 g/dl (14.0-18.0); Mean Corpuscular HGB Conc 32.6 g/dl (31.0-36.0); Mean Corpuscular Volume 91.9 fL (80.0-98.0); Mean Platelet Volume 10.1 fL (9.4-12.4); Platelet Count 151 X10*3/uL (160-400); White Blood Count 6.4 X10*3/uL (4.8-10.8)
[2023-04-10 07:00] LABS: INTERNATIONAL NORM RATIO 1.1 (0.9-1.1); Prothrombin Time 13.1 SEC (11.1-13.3)
[2023-04-10 07:04] LABS: Anion Gap 11 (12-20); Blood Urea Nitrogen 10 mg/dL (9-16); Calcium 8.4 mg/dL (8.4-10.2); Carbon Dioxide 23 mmol/L (22-29); Chloride 109 mmol/L (96-108); Creatinine Clr Calc Pharmacy 114.3; Estimated Glomerular Filt Rate > 60; Glucose Random 106 mg/dL (60-115); Potassium 4.2 mmol/L (3.3-5.1); Sodium 139 mmol/L (135-145)
--- NOTE | 2023-04-10 08:33 | P.PNGS_ITS ---
Subjective Subjective Date of Service: 04/10/23 Interval history: Patient reports pain in the left leg, requesting pain medication. Physical Exam Vital Signs: Vital Signs: Last Vital Signs Temp 96.8 F 04/10/23 08:00 Pulse 62 04/10/23 08:00 Resp 18 04/10/23 08:00 BP 106/67 04/10/23 08:00 Pulse Ox 97 04/10/23 04:00 O2 Del Method Room Air 04/10/23 04:00 BMI result Body Mass Index 30.5 Const: General: no acute distress and tired appearing Nutritional Appearance: well nourished Resp: Effort & Inspection: normal respiratory effort, no audible wheezes, no cough and no respiratory distress GI: Inspection: Yes normal to inspection Skin: Other: See left lower extremity below Extrem: Other: Left leg with extensive ulceration along the lateral surface with necrotic tissue and surrounding erythema. Ulcer measures least 10 cm in diameter. Extends into the subcutaneous tissue and muscle. Will require further debridement. Objective Data Active Medications Acetaminophen (Acetaminophen 325 Mg Tablet) 650 mg PO Q6H PRN PRN Reason: Pain, Mild (Pain Scale 1-3) Buprenorphine/Naloxone (Buprenorphine/Naloxone 8/2 Mg Film) 2 film SUBLINGUAL DAILY [facility] Enoxaparin Sodium (Enoxaparin Sodium 40 Mg/0.4 Ml Syringe) 40 mg SUBCUT Q24H [facility] Last Admin: 04/09/23 22:16 Dose: Not Given Documented By: JAI Non-Admin Reason: pt not available Gabapentin (Gabapentin 400 Mg Capsule) 800 mg PO QID [facility] Last Admin: 04/09/23 22:11 Dose: 800 mg Documented By: JAI Clindamycin Phosphate (Cleocin) 600 mg in 50 mls @ 100 mls/hr IV Q6H [facility] Last Infusion: 04/10/23 06:56 Dose: 0 mls/hr Documented By: YISEL Cefazolin Sodium/Dextrose (Ancef) 2 gm in 50 mls @ 100 mls/hr IV PREOP ONE Stop: 04/10/23 08:59 Morphine Sulfate (Morphine Sulfate 2 Mg/Ml Cartridge) 2 mg IVPUSH Q4H PRN; Protocol PRN Reason: Pain, Severe (Pain Scale 7-10) Last Admin: 04/09/23 22:32 Dose: 2 mg Documented By: JAI Neomycin/Polymyxin/Bacitracin (Neomy/Polymyx/Bacit/Ointment 14 Gm Tube) 1 gm TOPICAL DAILY [facility]; Protocol Last Admin: 04/09/23 20:05 Dose: 1 gm Documented By: BENITO Nicotine Polacrilex (Nicotine Polacrilex 2 Mg Gum) 4 mg BUCCAL Q2H PRN PRN Reason: nicotine cravings Pharmacy Consult (Consult Rx Perform Med Rec) 1 each MISCELLANE ONCE PRN PRN Reason: Consult order Sodium Chloride (0.9 % Sodium Chloride Flush 3 Ml Syringe) 3 ml IVFLUSH QSHIFT [facility] Last Admin: 04/10/23 01:43 Dose: Not Given Documented By: JAI Non-Admin Reason: Previously Administered Sodium Hypochlorite (Sodium Hypochlorite 0.125% 473 Ml Solution) 1 appl TOPICAL DAILY [facility] Warfarin Sodium (Warfarin Sodium 7.5 Mg Tablet) 7.5 mg PO DAILY@1800 [facility] Last Admin: 04/09/23 20:04 Dose: 7.5 mg Documented By: BENITO Labs 04/10/23 06:06 04/10/23 06:06 Labs: Laboratory Results - last 24 hr 04/09/23 04/09/23 04/09/23 15:52 15:52 15:52 MCV 90.6 MCH 30.5 MCHC 33.7 RDW 13.9 Plt Count 167 MPV 9.6 Immature Gran % (Auto) 0.1 Neut % (Auto) 39.4 L Lymph % (Auto) 31.9 Swift % (Auto) 6.6 Eos % (Auto) 21.2 H Baso % (Auto) 0.8 Lymph # (Auto) 2.4 Swift # (Auto) 0.5 Eos # (Auto) 1.6 H Baso # (Auto) 0.1 Abs Immat Gran (auto) 0.01 Absolute Neuts (auto) 2.9 Absolute Nucleated RBC 0.000 Nucleated RBC % (auto) 0.0 Smear Tech's Comments VERIFIED PT 13.3 INR 1.1 Anion Gap 11 L Estim Creat Clear Calc 93.6 Estimated GFR > 60 Random Glucose 125 H Lactic Acid Calcium 8.8 Magnesium 2.3 Total Bilirubin 0.4 Direct Bilirubin 0.1 AST 10 ALT 6 Alkaline Phosphatase 77 Total Protein 7.9 Albumin 3.8 04/09/23 04/10/23 04/10/23 15:52 06:06 06:06 MCV 91.9 MCH 30.0 MCHC 32.6 RDW 14.0 Plt Count 151 L MPV 10.1 Immature Gran % (Auto) Neut % (Auto) Lymph % (Auto) Swift % (Auto) Eos % (Auto) Baso % (Auto) Lymph # (Auto) Swift # (Auto) Eos # (Auto) Baso # (Auto) Abs Immat Gran (auto) Absolute Neuts (auto) Absolute Nucleated RBC 0.000 Nucleated RBC % (auto) 0.0 Smear Tech's Comments PT 13.1 INR 1.1 Anion Gap Estim Creat Clear Calc Estimated GFR Random Glucose Lactic Acid 1.0 Calcium Magnesium Total Bilirubin Direct Bilirubin AST ALT Alkaline Phosphatase Total Protein Albumin 04/10/23 06:06 MCV MCH MCHC RDW Plt Count MPV Immature Gran % (Auto) Neut % (Auto) Lymph % (Auto) Swift % (Auto) Eos % (Auto) Baso % (Auto) Lymph # (Auto) Swift # (Auto) Eos # (Auto) Baso # (Auto) Abs Immat Gran (auto) Absolute Neuts (auto) Absolute Nucleated RBC Nucleated RBC % (auto) Smear Tech's Comments PT INR Anion Gap 11 L Estim Creat Clear Calc 114.3 Estimated GFR > 60 Random Glucose 106 Lactic Acid Calcium 8.4 Magnesium Total Bilirubin Direct Bilirubin AST ALT Alkaline Phosphatase Total Protein Albumin Procedures Date of Service Date of Service: 04/10/23 Progress Note: A&P Assessment and plan (1) Maggot infestation: Status: Acute (2) Cellulitis of anterior lower leg: Status: Acute (3) Venous thromboembolism: Status: Acute Plan 57-year-old male patient with history of venous thromboembolism currently on Coumadin presenting with a long history of nonhealing ulceration of the left leg. [facility] but has not been compliant with the dressing changes. Patient found to have maggots on his wound with extensive necrotic tissue. Patient will require operative debridement under anesthesia. I reviewed the procedure, risks, and alternatives and he consents to debridement of left leg ulceration. He has been added onto the operative schedule for today. Time Spent With Patient Time: Total time managing care of this patient today ____ minutes. Quality Stroke Does the patient have a stroke diagnosis?: No VTE Prior VTE?: No VTE Risk Level:: Medical - moderate - high VTE Device Contraindication: Treatment Not Indicated VTE Drug Contraindication: N/A - Med Ordered
[2023-04-10] MEDS: Buprenorphine/Naloxone 8/2 mg FILM 2 FILM SUBLINGUAL (08:45)
[2023-04-10] MEDS: Morphine Sulfate 2 MG/ML CARTRIDGE IVPUSH ×3 (08:45→23:32)
[2023-04-10] MEDS: Gabapentin 400 MG CAPSULE 800 MG PO ×4 (08:45→21:40)
[2023-04-10] MEDS: 0.9 % Sodium Chloride Flush 3 ML SYRINGE IVFLUSH (08:50)
--- NOTE | 2023-04-10 10:38 | P.CONAN_ITS ---
HPI - Anesthesia Eval Consult details Narrative: Debridment left led ulcer PMFSH Active Problems Active Problems: All Active Problems (Updated 04/09/23 @ 18:43 by Lito Flores MD) Subtherapeutic anticoagulation (Acute) Maggot infestation (Acute) Cellulitis of anterior lower leg (Acute) Peripheral vascular disease of extremity (Acute) Opioid use disorder (Acute) Venous thromboembolism (Acute) Smoker (Acute) Peripheral vascular disease of lower extremity with ulceration (Acute) Hx of blood clots (Acute) Cigar smoker motivated to quit (Acute) Past Medical History Medical History Opioid use disorder Peripheral vascular disease of extremity Venous thromboembolism Family History Family History Mother No problems noted. Father No problems noted. 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 Do you presently have visiting nurse or other home services: No (PREVIOUSLY NOT NOW) Unable to assess alcohol history related to: Refusing to respond Alcohol intake: never Patient Tobacco Use Status: Current everyday Tobacco user Tobacco use type: Cigarette Cigarette Packs Per Day: 1 Cigarettes Per Day: 1 e-Cigarette/Vaping Use: Never Used Second Hand Smoke Exposure: No service: No Current occupational status: disabled Meds Allergies Allergy/AdvReac Type Severity Reaction Status Date / Time latex Allergy Intermediate Rash,Hives Verified 12/10/22 15:41 naproxen Allergy Intermediate Rash,Hives Verified 12/10/22 15:41 Active Medications: Current Medications Acetaminophen (Acetaminophen 325 Mg Tablet) 650 mg PO Q6H PRN PRN Reason: Pain, Mild (Pain Scale 1-3) Buprenorphine/Naloxone (Buprenorphine/Naloxone 8/2 Mg Film) 2 film SUBLINGUAL DAILY [facility] Last Admin: 04/10/23 08:45 Dose: 2 film Enoxaparin Sodium (Enoxaparin Sodium 40 Mg/0.4 Ml Syringe) 40 mg SUBCUT Q24H [facility] Last Admin: 04/09/23 22:16 Dose: Not Given Gabapentin (Gabapentin 400 Mg Capsule) 800 mg PO QID [facility] Last Admin: 04/10/23 08:45 Dose: 800 mg Clindamycin Phosphate (Cleocin) 600 mg in 50 mls @ 100 mls/hr IV Q6H [facility] Last Admin: 04/10/23 10:35 Dose: Not Given Morphine Sulfate (Morphine Sulfate 2 Mg/Ml Cartridge) 2 mg IVPUSH Q4H PRN; Protocol PRN Reason: Pain, Severe (Pain Scale 7-10) Last Admin: 04/10/23 08:45 Dose: 2 mg Neomycin/Polymyxin/Bacitracin (Neomy/Polymyx/Bacit/Ointment 14 Gm Tube) 1 gm TOPICAL DAILY [facility]; Protocol Last Admin: 04/10/23 10:19 Dose: Not Given Nicotine Polacrilex (Nicotine Polacrilex 2 Mg Gum) 4 mg BUCCAL Q2H PRN PRN Reason: nicotine cravings Pharmacy Consult (Consult Rx Perform Med Rec) 1 each MISCELLANE ONCE PRN PRN Reason: Consult order Sodium Chloride (0.9 % Sodium Chloride Flush 3 Ml Syringe) 3 ml IVFLUSH QSHIFT [facility] Last Admin: 04/10/23 08:50 Dose: 3 ml Sodium Hypochlorite (Sodium Hypochlorite 0.125% 473 Ml Solution) 1 appl TOPICAL DAILY [facility] Last Admin: 04/10/23 10:19 Dose: Not Given Warfarin Sodium (Warfarin Sodium 7.5 Mg Tablet) 7.5 mg PO DAILY@1800 [facility] Last Admin: 04/09/23 20:04 Dose: 7.5 mg Home Medications Medication Instructions Recorded Confirmed Last Taken Type buprenorphine 8 mg-naloxone 2 mg 2 film sublingual DAILY 06/29/20 04/09/23 04/09/23 History sublingual film gabapentin 800 mg tablet 800 mg PO QID 06/29/20 04/09/23 04/09/23 History warfarin 5 mg tablet 7.5 mg PO DAILY 04/09/23 04/09/23 3 Days Ago History ~04/06/23 Exam Exam Date and Time: April 10, 2023 1039 Height,Weight and Vital Signs: Height 6 ft Weight 102.058 kg Last Vital Signs Temp 97.7 F 04/10/23 10:26 Pulse 58 04/10/23 10:26 Resp 18 04/10/23 10:26 BP 112/58 L 04/10/23 10:26 Pulse Ox 96 04/10/23 10:26 O2 Del Method Room Air 04/10/23 10:26 Pertinent Lab Results Pertinent Lab Results: Laboratory Tests 04/09/23 04/09/23 04/09/23 15:52 15:52 15:52 WBC 7.5 RBC 4.16 L Hgb 12.7 L Hct 37.7 L MCV 90.6 MCH 30.5 MCHC 33.7 RDW 13.9 Plt Count 167 MPV 9.6 Immature Gran % (Auto) 0.1 Neut % (Auto) 39.4 L Lymph % (Auto) 31.9 Ogle % (Auto) 6.6 Eos % (Auto) 21.2 H Baso % (Auto) 0.8 Lymph # (Auto) 2.4 Ogle # (Auto) 0.5 Eos # (Auto) 1.6 H Baso # (Auto) 0.1 Abs Immat Gran (auto) 0.01 Absolute Neuts (auto) 2.9 Absolute Nucleated RBC 0.000 Nucleated RBC % (auto) 0.0 Smear Tech's Comments VERIFIED PT 13.3 INR 1.1 Sodium 136 Potassium 4.3 Chloride 107 Carbon Dioxide 22 Anion Gap 11 L BUN 11 Creatinine 1.05 Estim Creat Clear Calc 93.6 Estimated GFR > 60 Random Glucose 125 H Lactic Acid Calcium 8.8 Magnesium 2.3 Total Bilirubin 0.4 Direct Bilirubin 0.1 AST 10 ALT 6 Alkaline Phosphatase 77 Total Protein 7.9 Albumin 3.8 04/09/23 04/10/23 04/10/23 15:52 06:06 06:06 WBC 6.4 RBC 3.70 L Hgb 11.1 L Hct 34.0 L MCV 91.9 MCH 30.0 MCHC 32.6 RDW 14.0 Plt Count 151 L MPV 10.1 Immature Gran % (Auto) Neut % (Auto) Lymph % (Auto) Ogle % (Auto) Eos % (Auto) Baso % (Auto) Lymph # (Auto) Ogle # (Auto) Eos # (Auto) Baso # (Auto) Abs Immat Gran (auto) Absolute Neuts (auto) Absolute Nucleated RBC 0.000 Nucleated RBC % (auto) 0.0 Smear Tech's Comments PT 13.1 INR 1.1 Sodium Potassium Chloride Carbon Dioxide Anion Gap BUN Creatinine Estim Creat Clear Calc Estimated GFR Random Glucose Lactic Acid 1.0 Calcium Magnesium Total Bilirubin Direct Bilirubin AST ALT Alkaline Phosphatase Total Protein Albumin 04/10/23 06:06 WBC RBC Hgb Hct MCV MCH MCHC RDW Plt Count MPV Immature Gran % (Auto) Neut % (Auto) Lymph % (Auto) Ogle % (Auto) Eos % (Auto) Baso % (Auto) Lymph # (Auto) Ogle # (Auto) Eos # (Auto) Baso # (Auto) Abs Immat Gran (auto) Absolute Neuts (auto) Absolute Nucleated RBC Nucleated RBC % (auto) Smear Tech's Comments PT INR Sodium 139 Potassium 4.2 Chloride 109 H Carbon Dioxide 23 Anion Gap 11 L BUN 10 Creatinine 0.86 Estim Creat Clear Calc 114.3 Estimated GFR > 60 Random Glucose 106 Lactic Acid Calcium 8.4 Magnesium Total Bilirubin Direct Bilirubin AST ALT Alkaline Phosphatase Total Protein Albumin Airway Mallampati Class: II TM Dist: >3cm Neck ROM: Limited Heart: rrr Lungs: cta Assessment and Plan Assessment Anesthesia Assessment: Anesthesia Plan Discussed and Smoking Cess. Discussed Final Anesthetic Review Family History of Problems with Anesthesia: No History of Problems with Anesthesia: No NPO: Yes ASA Class: IV Final Preanesthetic Review: No Changes in Pt Med Stat and Anes Risks/Benef Reviewed Patient Risk: High Anesthetic Plan Anesthetic Plan: GA and Agree w/ Assess. and Plan Disposition: Standard PACU
--- NOTE | 2023-04-10 11:55 | W.PM.OPN ---
Operative Note Operative Note Date of Service: 04/10/23 Narrative: Preoperative diagnosis: Left leg ulcer with maggots Postoperative diagnosis: Same Procedure: Debridement of left leg ulcer Surgeon: Aakash Quintero MD Rug Renovator: Kate Keith PA-C Anesthesia: General LMA Indications for procedure: 57-year-old male patient with chronic venous stasis ulcers and history of venous thromboembolism. Patient was found in wound care center to have maggots in his open wound. Presents today for wound debridement. Operative findings: Large leg ulcer located on the lateral left leg just above the malleolus measuring at least 10 cm in diameter. Specimen: Non Estimated blood loss: 10 mL Complications: None Procedure details: Patient was brought to the OR placed in a supine position. After administering general anesthesia the patient's left leg was prepped with Betadine and draped in a sterile fashion. A surgical time-out was called the consent confirmed. Patient received preoperative antibiotics and Venodyne boots were in place. A scalpel blade and curette were then used to clean of thick peel overlying granulation tissue from the left leg ulcer. Necrotic tissue noted in the central portion of the wound was then excised using the scalpel. When the bed was completely debrided the wounds were then irrigated using a Pulsavac with 3 L of fluid. Wounds were then dressed with Betadine-soaked gauze followed by dry sterile dressings, ABD pad, and Kerlix. The patient tolerated the procedure well. He was transferred to PACU in stable condition.
[2023-04-10] MEDS: HYDROmorphone HCl 0.5 MG/0.5 ML SYRINGE IVPUSH ×3 (12:15→12:50)
--- NOTE | 2023-04-10 14:21 | MHC.CM.PN ---
PT REPORTS HE LIVES WITH HIS MOTHER AND IS INDEPENDENT WITH CARE WHEN ASKED ABOUT SERVICES HE STATES I CAN DO IT ALL MYSELF HE ALSO DENIES HAVING DME PT DECLINES TO COMPLETE A HCP PCP: CYNTHIA SCHAEFFER IMM DELIVERED DCP: HOME ? [facility] PT WILL NEED TRANSPORTATION ARRANGED
--- NOTE | 2023-04-10 15:09 | P.PNIM_ITS ---
Subjective Subjective Date of Service: 04/10/23 Interval History: Seen and evaluated going for surgical debridement this afternoon No fever or chills Review of Systems Review of Systems: Yes all other systems are reviewed and are negative Physical Exam Vital Signs: Vital Signs: Last Vital Signs Temp 97.2 F 04/10/23 13:11 Pulse 54 04/10/23 13:11 Resp 18 04/10/23 13:11 BP 155/78 H 04/10/23 13:11 Pulse Ox 97 04/10/23 13:11 O2 Del Method Room Air 04/10/23 13:11 BMI result Body Mass Index 30.5 Const: Other: Constitutional : Awake, interactive, not in distress Neck : Normal inspection, Supple Cardiovascular : RRR, no JVP, no lower extremity edema Respiratory : good bilateral air entry, no crackles, wheezes or rhonchi Gastrointestinal: soft, lax, Normal bowel sounds, Non tender Skin : Warm, Dry Neurological : Alert & oriented x3, No focal deficit , CN 2-12 within normal Skin: Chronic wound 1 cm x 1 cm in the RLE w no drainage or maggots. LLE Chronic 8x10 cm wound with no more maggots seen covered with dressing Objective Data Active Medications Acetaminophen (Acetaminophen 325 Mg Tablet) 650 mg PO Q6H PRN PRN Reason: Pain, Mild (Pain Scale 1-3) Buprenorphine/Naloxone (Buprenorphine/Naloxone 8/2 Mg Film) 2 film SUBLINGUAL DAILY [facility] Last Admin: 04/10/23 08:45 Dose: 2 film Documented By: YISEL Enoxaparin Sodium (Enoxaparin Sodium 40 Mg/0.4 Ml Syringe) 40 mg SUBCUT Q24H [facility] Last Admin: 04/09/23 22:16 Dose: Not Given Documented By: JAI Non-Admin Reason: pt not available Gabapentin (Gabapentin 400 Mg Capsule) 800 mg PO QID [facility] Last Admin: 04/10/23 13:17 Dose: 800 mg Documented By: YISEL Clindamycin Phosphate (Cleocin) 600 mg in 50 mls @ 100 mls/hr IV Q6H [facility] Last Admin: 04/10/23 10:35 Dose: Not Given Documented By: YISEL Non-Admin Reason: Off Unit: Surgery Morphine Sulfate (Morphine Sulfate 2 Mg/Ml Cartridge) 2 mg IVPUSH Q4H PRN; Protocol PRN Reason: Pain, Severe (Pain Scale 7-10) Last Admin: 04/10/23 08:45 Dose: 2 mg Documented By: YISEL Neomycin/Polymyxin/Bacitracin (Neomy/Polymyx/Bacit/Ointment 14 Gm Tube) 1 gm TOPICAL DAILY [facility]; Protocol Last Admin: 04/10/23 10:19 Dose: Not Given Documented By: YISEL Non-Admin Reason: Off Unit: Surgery Nicotine Polacrilex (Nicotine Polacrilex 2 Mg Gum) 4 mg BUCCAL Q2H PRN PRN Reason: nicotine cravings Pharmacy Consult (Consult Rx Perform Med Rec) 1 each MISCELLANE ONCE PRN PRN Reason: Consult order Sodium Chloride (0.9 % Sodium Chloride Flush 3 Ml Syringe) 3 ml IVFLUSH QSHIFT [facility] Last Admin: 04/10/23 08:50 Dose: 3 ml Documented By: YISEL Sodium Hypochlorite (Sodium Hypochlorite 0.125% 473 Ml Solution) 1 appl TOPICAL DAILY [facility] Last Admin: 04/10/23 10:19 Dose: Not Given Documented By: YISEL Non-Admin Reason: Off Unit: Surgery Warfarin Sodium (Warfarin Sodium 7.5 Mg Tablet) 7.5 mg PO DAILY@1800 [facility] Last Admin: 04/09/23 20:04 Dose: 7.5 mg Documented By: BENITO Labs 04/10/23 06:06 04/10/23 06:06 Labs: Laboratory Results - last 24 hr 04/09/23 04/09/23 04/09/23 15:52 15:52 15:52 MCV 90.6 MCH 30.5 MCHC 33.7 RDW 13.9 Plt Count 167 MPV 9.6 Immature Gran % (Auto) 0.1 Neut % (Auto) 39.4 L Lymph % (Auto) 31.9 Sharkey % (Auto) 6.6 Eos % (Auto) 21.2 H Baso % (Auto) 0.8 Lymph # (Auto) 2.4 Sharkey # (Auto) 0.5 Eos # (Auto) 1.6 H Baso # (Auto) 0.1 Abs Immat Gran (auto) 0.01 Absolute Neuts (auto) 2.9 Absolute Nucleated RBC 0.000 Nucleated RBC % (auto) 0.0 Smear Tech's Comments VERIFIED PT 13.3 INR 1.1 Anion Gap 11 L Estim Creat Clear Calc 93.6 Estimated GFR > 60 Random Glucose 125 H Lactic Acid Calcium 8.8 Magnesium 2.3 Total Bilirubin 0.4 Direct Bilirubin 0.1 AST 10 ALT 6 Alkaline Phosphatase 77 Total Protein 7.9 Albumin 3.8 04/09/23 04/10/23 04/10/23 15:52 06:06 06:06 MCV 91.9 MCH 30.0 MCHC 32.6 RDW 14.0 Plt Count 151 L MPV 10.1 Immature Gran % (Auto) Neut % (Auto) Lymph % (Auto) Sharkey % (Auto) Eos % (Auto) Baso % (Auto) Lymph # (Auto) Sharkey # (Auto) Eos # (Auto) Baso # (Auto) Abs Immat Gran (auto) Absolute Neuts (auto) Absolute Nucleated RBC 0.000 Nucleated RBC % (auto) 0.0 Smear Tech's Comments PT 13.1 INR 1.1 Anion Gap Estim Creat Clear Calc Estimated GFR Random Glucose Lactic Acid 1.0 Calcium Magnesium Total Bilirubin Direct Bilirubin AST ALT Alkaline Phosphatase Total Protein Albumin 04/10/23 06:06 MCV MCH MCHC RDW Plt Count MPV Immature Gran % (Auto) Neut % (Auto) Lymph % (Auto) Sharkey % (Auto) Eos % (Auto) Baso % (Auto) Lymph # (Auto) Sharkey # (Auto) Eos # (Auto) Baso # (Auto) Abs Immat Gran (auto) Absolute Neuts (auto) Absolute Nucleated RBC Nucleated RBC % (auto) Smear Tech's Comments PT INR Anion Gap 11 L Estim Creat Clear Calc 114.3 Estimated GFR > 60 Random Glucose 106 Lactic Acid Calcium 8.4 Magnesium Total Bilirubin Direct Bilirubin AST ALT Alkaline Phosphatase Total Protein Albumin Assessment and Plan (1) Subtherapeutic anticoagulation: Status: Acute (2) Maggot infestation: Status: Acute (3) Cellulitis of anterior lower leg: Status: Acute Plan A 57 years old male with PMH of PAD, chronic wounds, smoker w Hx of substance abuse on Suboxone who presents to the hospital with LLE chronic wound infestati on with maggots. Chronic LE wound with cellulitis Continue Clindamycin IV wound care nurse consult dressing per surgery Chronic wound with maggot infestation Treated with Hydrogen peroxide related to PAD, has good peripheral pulses surgery evaluation for debridement Subtherapeutic INR ran out of Warfarin restart warfarin and bridge with Lovenox DVT PPx Lovenox The patient will likely need overnight hospital stay for treatment of cellulitis pending surgical evaluation Time Spent With Patient Time: Total time managing care of this patient today ____ minutes. Quality Stroke Does the patient have a stroke diagnosis?: No VTE Prior VTE?: No VTE Risk Level:: Medical - moderate - high VTE Device Contraindication: Treatment Not Indicated VTE Drug Contraindication: N/A - Med Ordered
[2023-04-10] MEDS: Warfarin Sodium 7.5 MG TABLET PO (17:26)
[2023-04-11] VITALS: BP 155/81; PULSE 53; RESP 18; TEMP 36.1; O2SAT 97
[2023-04-11] MEDS: Clindamycin Phosphate/D5W 600 MG/50 ML PIGGYBACK 100 MG IV ×4 (05:44→23:12)
[2023-04-11 06:11] LABS: Hematocrit 33.7 % (42.0-52.0); Hemoglobin 10.9 g/dl (14.0-18.0); Mean Corpuscular HGB Conc 32.3 g/dl (31.0-36.0); Mean Corpuscular Hemoglobin 29.7 pg (27.0-33.0); Mean Corpuscular Volume 91.8 fL (80.0-98.0); Mean Platelet Volume 9.6 fL (9.4-12.4); Platelet Count 151 X10*3/uL (160-400); Red Blood Count 3.67 X10*6/uL (4.60-5.80); White Blood Count 5.3 X10*3/uL (4.8-10.8)
[2023-04-11 06:27] LABS: INTERNATIONAL NORM RATIO 1.2 (0.9-1.1); Prothrombin Time 14.7 SEC (11.1-13.3)
[2023-04-11 07:11] LABS: Anion Gap 9 (12-20); Blood Urea Nitrogen 13 mg/dL (9-16); Calcium 8.4 mg/dL (8.4-10.2); Carbon Dioxide 23 mmol/L (22-29); Chloride 111 mmol/L (96-108); Creatinine Clr Calc Pharmacy 110.4; Estimated Glomerular Filt Rate > 60; Glucose Random 100 mg/dL (60-115); Potassium 4.8 mmol/L (3.3-5.1); Sodium 138 mmol/L (135-145)
[2023-04-11 08:00] VITALS: BP 132/70; PULSE 47; RESP 18; TEMP 36.1; O2SAT 94
[2023-04-11] MEDS: NeoMY/Polymyx/Bacit/Ointment 14 GM Tube TOPICAL (08:49)
[2023-04-11] MEDS: Sodium Hypochlorite 0.125% 473 ML SOLUTION 1 APPL TOPICAL (08:49)
[2023-04-11] MEDS: 0.9 % Sodium Chloride Flush 3 ML SYRINGE IVFLUSH ×3 (08:49→23:12)
[2023-04-11] MEDS: Gabapentin 400 MG CAPSULE 800 MG PO ×4 (08:49→21:15)
[2023-04-11] MEDS: Buprenorphine/Naloxone 8/2 mg FILM 2 FILM SUBLINGUAL (08:49)
[2023-04-11] MEDS: Morphine Sulfate 2 MG/ML CARTRIDGE IVPUSH (09:36)
--- NOTE | 2023-04-11 13:41 | HO.PM.IMPN ---
Subjective Subjective Date of Service: 04/11/23 Interval History: Being followed for left leg ulcer with maggots status post debridement of left leg ulcer in OR on April 10, this a.m. sitting comfortably offers no acute complaints denies fever, no chills, no headache, no nausea, no vomiting, no abdominal pain, INR subtherapeutic at 1.2 Review of Systems All other system reviewed and negative Physical Exam Vital Signs: Vital Signs: Last Vital Signs Temp 96.9 F 04/11/23 08:00 Pulse 47 L 04/11/23 08:00 Resp 18 04/11/23 08:00 BP 132/70 04/11/23 08:00 Pulse Ox 94 04/11/23 08:00 O2 Del Method Room Air 04/11/23 08:00 BMI result Body Mass Index 30.5 Const: Other: Constitutional : Awake, alert, not in distress Neck : Normal inspection, Supple Cardiovascular : RRR, no JVP, no lower extremity edema Respiratory : good bilateral air entry,? no crackles, wheezes or rhonchi Gastrointestinal:? soft, lax, Normal bowel sounds, Non tender Skin : Warm, Dry Neurological : Alert & oriented x3, No focal deficit , CN 2-12 within normal Extremities:? Chronic wound 1 cm x 1 cm in the RLE w no drainage or maggots. LLE Chronic wound covered with dressing no drainage noted. Objective Data Active Medications Acetaminophen (Acetaminophen 325 Mg Tablet) 650 mg PO Q6H PRN PRN Reason: Pain, Mild (Pain Scale 1-3) Buprenorphine/Naloxone (Buprenorphine/Naloxone 8/2 Mg Film) 2 film SUBLINGUAL DAILY [facility] Last Admin: 04/11/23 08:49 Dose: 2 film Documented By: YISEL Enoxaparin Sodium (Enoxaparin Sodium 40 Mg/0.4 Ml Syringe) 40 mg SUBCUT Q24H [facility] Last Admin: 04/10/23 17:27 Dose: Not Given Documented By: YISEL Non-Admin Reason: Patient Refused Gabapentin (Gabapentin 400 Mg Capsule) 800 mg PO QID [facility] Last Admin: 04/11/23 12:43 Dose: 800 mg Documented By: YISEL Clindamycin Phosphate (Cleocin) 600 mg in 50 mls @ 100 mls/hr IV Q6H [facility] Last Infusion: 04/11/23 11:10 Dose: 0 mls/hr Documented By: YISEL Morphine Sulfate (Morphine Sulfate 2 Mg/Ml Cartridge) 2 mg IVPUSH Q4H PRN; Protocol PRN Reason: Pain, Severe (Pain Scale 7-10) Last Admin: 04/11/23 09:36 Dose: 2 mg Documented By: YISEL Neomycin/Polymyxin/Bacitracin (Neomy/Polymyx/Bacit/Ointment 14 Gm Tube) 1 gm TOPICAL DAILY [facility]; Protocol Last Admin: 04/11/23 08:49 Dose: 1 gm Documented By: YISEL Nicotine Polacrilex (Nicotine Polacrilex 2 Mg Gum) 4 mg BUCCAL Q2H PRN PRN Reason: nicotine cravings Pharmacy Consult (Consult Rx Perform Med Rec) 1 each MISCELLANE ONCE PRN PRN Reason: Consult order Sodium Chloride (0.9 % Sodium Chloride Flush 3 Ml Syringe) 3 ml IVFLUSH QSHIFT [facility] Last Admin: 04/11/23 08:49 Dose: 3 ml Documented By: YISEL Sodium Hypochlorite (Sodium Hypochlorite 0.25% 473 Ml Solution) 1 appl TOPICAL DAILY [facility] Last Admin: 04/11/23 09:49 Dose: Not Given Documented By: YISEL Non-Admin Reason: prev administered Warfarin Sodium (Warfarin Sodium 7.5 Mg Tablet) 7.5 mg PO DAILY@1800 [facility] Last Admin: 04/10/23 17:26 Dose: 7.5 mg Documented By: YISEL Labs 04/11/23 05:34 04/11/23 05:34 Labs: Laboratory Results - last 24 hr 04/11/23 04/11/23 04/11/23 05:34 05:34 05:34 MCV 91.8 MCH 29.7 MCHC 32.3 RDW 14.0 Plt Count 151 L MPV 9.6 Absolute Nucleated RBC 0.000 Nucleated RBC % (auto) 0.0 PT 14.7 H INR 1.2 H Anion Gap 9 L Estim Creat Clear Calc 110.4 Estimated GFR > 60 Random Glucose 100 Calcium 8.4 Microbiology Microbiology Results: Microbiology 04/09/23 16:00 Blood Culture - Preliminary Blood - Venous No growth after 24 hours. 04/09/23 15:52 Blood Culture - Preliminary Blood - Venous No growth after 24 hours. Assessment and Plan (1) Subtherapeutic anticoagulation: Status: Acute (2) Maggot infestation: Status: Acute (3) Cellulitis of anterior lower leg: Status: Acute Plan A 57 years old male with PMH of PAD, chronic wounds, smoker w Hx of substance abuse on Suboxone who presents to the hospital with LLE chronic wound infestation with maggots. Chronic LE wound with cellulitis and maggot infestation Continue Clindamycin IV day 2, normal WBC blood cultures x2 negative times 24 hours Underwent debridement by Dr. Quintero in OR on 04/10/23 dressing per surgery Will discuss discharge plan with General surgery. History of DVT on Coumadin Subtherapeutic INR Was not taking warfarin at home since ran out of prescription continue warfarin and bridged with Lovenox since INR remains subtherapeutic at 1.2 follow daily PT INR Smoking history continue nicotine patch, counseling done. DVT PPx Lovenox/Coumadin patient will likely need continued hospital stay for treatment of cellulitis and leg wound on IV antibiotics Time Spent With Patient Time: Total time managing care of this patient today ____ minutes. Quality Stroke Does the patient have a stroke diagnosis?: No VTE Prior VTE?: No VTE Risk Level:: Medical - moderate - high VTE Device Contraindication: Treatment Not Indicated VTE Drug Contraindication: N/A - Med Ordered
--- NOTE | 2023-04-11 14:42 | HO.POSTANES ---
Post Anesthesia Evaluation Post Anesthesia Evaluation Date of Service: 04/10/23 Vital Signs: Vital Signs Temp Pulse Resp BP Pulse Ox O2 Del Method 04/11/23 08:00 96.9 F 47 L 18 132/70 94 Room Air Anesthesia: General Endotracheal-GETA Mental Status: Awake Pain Control: Satisfactory Nausea/Vomiting: None Hydration: Adequate Anesthesia-Related Issues: No Anes. Related Issues
[2023-04-11 15:39] VITALS: BP 139/71; PULSE 57; RESP 15; TEMP 36.2; O2SAT 94
[2023-04-11] MEDS: Warfarin Sodium 7.5 MG TABLET PO (17:14)
[2023-04-11] MEDS: Nicotine Polacrilex 2 MG GUM 4 MG BUCCAL ×3 (19:13→23:11)
[2023-04-12] VITALS: BP 154/80; PULSE 66; RESP 16; TEMP 36.4; O2SAT 96
[2023-04-12] MEDS: Nicotine Polacrilex 2 MG GUM 4 MG BUCCAL ×4 (01:47→11:22)
[2023-04-12] MEDS: Clindamycin Phosphate/D5W 600 MG/50 ML PIGGYBACK 100 MG IV ×2 (05:22→10:40)
[2023-04-12 06:33] LABS: INTERNATIONAL NORM RATIO 1.4 (0.9-1.1); Prothrombin Time 16.5 SEC (11.1-13.3)
[2023-04-12 08:00] VITALS: BP 116/64; PULSE 82; RESP 20; TEMP 36.2; O2SAT 95
[2023-04-12] MEDS: Buprenorphine/Naloxone 8/2 mg FILM 2 FILM SUBLINGUAL (08:42)
[2023-04-12] MEDS: Gabapentin 400 MG CAPSULE 800 MG PO (08:42)
[2023-04-12] MEDS: Nicotine Polacrilex 2 MG GUM BUCCAL ×2 (08:43→11:27)
[2023-04-12] MEDS: 0.9 % Sodium Chloride Flush 3 ML SYRINGE IVFLUSH (08:43)
[2023-04-12] MEDS: NeoMY/Polymyx/Bacit/Ointment 14 GM Tube TOPICAL (08:47)
--- NOTE | 2023-04-12 09:57 | P.PNGS_ITS ---
Subjective Subjective Date of Service: 04/12/23 Patient reports: no new complaints and feels better Interval history: Seen in coverage for Dr. Quintero The patient underwent operative debridement of a left lower extremity wound that had both maggots and that tissue. Patient is evaluated to assess for possible discharge. He notes that he has been primarily getting [facility], has some dressings at home and has a follow-up next . I was asked to evaluate the wound for consideration of discharge. Patient denies any difficulty breathing, chest pain, shortness of breath or other new symptoms. Physical Exam Vital Signs: Vital Signs: Last Vital Signs Temp 97.2 F 04/12/23 08:00 Pulse 82 04/12/23 08:00 Resp 20 04/12/23 08:00 BP 116/64 04/12/23 08:00 Pulse Ox 95 04/12/23 08:00 O2 Del Method Nasal Cannula 04/12/23 08:00 BMI result Body Mass Index 30.5 On the left lower extremity anterolateral E, there is a large, broad-based debrided ulcer with no malodorous, slight pseudomonal odor with good granulation tissue, no further maggots and no grossly necrotic tissue. See pictures in nurses measurements for full details Objective Data Active Medications Acetaminophen (Acetaminophen 325 Mg Tablet) 650 mg PO Q6H PRN PRN Reason: Pain, Mild (Pain Scale 1-3) Buprenorphine/Naloxone (Buprenorphine/Naloxone 8/2 Mg Film) 2 film SUBLINGUAL DAILY [facility] Last Admin: 04/12/23 08:42 Dose: 2 film Documented By: MARIA VICTORIA Enoxaparin Sodium (Enoxaparin Sodium 40 Mg/0.4 Ml Syringe) 40 mg SUBCUT Q24H [facility] Last Admin: 04/11/23 17:53 Dose: Not Given Documented By: YISEL Non-Admin Reason: Patient Refused Gabapentin (Gabapentin 400 Mg Capsule) 800 mg PO QID [facility] Last Admin: 04/12/23 08:42 Dose: 800 mg Documented By: MARIA VICTORIA Clindamycin Phosphate (Cleocin) 600 mg in 50 mls @ 100 mls/hr IV Q6H [facility] Last Infusion: 04/12/23 05:52 Dose: 0 mls/hr Documented By: MARILYN Morphine Sulfate (Morphine Sulfate 2 Mg/Ml Cartridge) 2 mg IVPUSH Q4H PRN; Protocol PRN Reason: Pain, Severe (Pain Scale 7-10) Last Admin: 04/11/23 09:36 Dose: 2 mg Documented By: YISEL Neomycin/Polymyxin/Bacitracin (Neomy/Polymyx/Bacit/Ointment 14 Gm Tube) 1 gm TOPICAL DAILY [facility]; Protocol Last Admin: 04/12/23 08:47 Dose: 1 gm Documented By: MARIA VICTORIA Nicotine Polacrilex (Nicotine Polacrilex 2 Mg Gum) 4 mg BUCCAL Q2H PRN PRN Reason: nicotine cravings Last Admin: 04/12/23 08:43 Dose: 4 mg Documented By: MARIA VICTORIA Nicotine Polacrilex (Nicotine Polacrilex 2 Mg Gum) 2 mg BUCCAL Q2H PRN PRN Reason: Nicotine Cravings Last Admin: 04/12/23 08:43 Dose: 2 mg Documented By: MARIA VICTORIA Pharmacy Consult (Consult Rx Perform Med Rec) 1 each MISCELLANE ONCE PRN PRN Reason: Consult order Sodium Chloride (0.9 % Sodium Chloride Flush 3 Ml Syringe) 3 ml IVFLUSH QSHIFT [facility] Last Admin: 04/12/23 08:43 Dose: 3 ml Documented By: MARIA VICTORIA Sodium Hypochlorite (Sodium Hypochlorite 0.25% 473 Ml Solution) 1 appl TOPICAL DAILY [facility] Last Admin: 04/12/23 08:48 Dose: 1 appl Documented By: MARIA VICTORIA Warfarin Sodium (Warfarin Sodium 7.5 Mg Tablet) 7.5 mg PO DAILY@1800 [facility] Last Admin: 04/11/23 17:14 Dose: 7.5 mg Documented By: YISEL Labs 04/11/23 05:34 04/11/23 05:34 Labs: Laboratory Results - last 24 hr 04/12/23 05:48 PT 16.5 H INR 1.4 H Microbiology Microbiology Results: Microbiology 04/09/23 16:00 Blood Culture - Preliminary Blood - Venous No growth after 48 hours. 04/09/23 15:52 Blood Culture - Preliminary Blood - Venous No growth after 48 hours. Procedures Date of Service Date of Service: 04/12/23 Progress Note: A&P Assessment and plan (1) Cellulitis of anterior lower leg: Status: Acute (2) Peripheral vascular disease of extremity: Status: Acute (3) Venous thromboembolism: Status: Acute (4) Subtherapeutic anticoagulation: Status: Acute (5) Maggot infestation: Status: Acute (6) Smoker: Status: Acute (7) Peripheral vascular disease of lower extremity with ulceration: Status: Acute Plan After review of the chart and evaluation, the patient does not need further surgical treatment at this admission. Is long his wound care and VNA can be a rranged with follow-up in the [facility], discharge is reasonable. Time Spent With Patient Time: Total time managing care of this patient today ____ minutes. Quality Stroke Does the patient have a stroke diagnosis?: No VTE Prior VTE?: No VTE Risk Level:: Medical - moderate - high VTE Device Contraindication: Treatment Not Indicated VTE Drug Contraindication: N/A - Med Ordered
--- NOTE | 2023-04-12 10:57 | PM.DS ---
DS: Providers Provider Date of Service: 04/12/23 Date of admission: 04/09/23 18:35 Primary care physician: Gage Geronimo MD Consults: 04/10/23 07:29 Consult to General Surgery Routine Consulting Provider: [facility] General Surgeons Reason for consultation: Maggot infestation of chronic wound Has provider been notified: Yes 04/12/23 09:33 Consult to General Surgery Routine Consulting Provider: Obi Ruggiero Reason for consultation: leg wound Has provider been notified: No DS: Diagnosis Discharge Diagnosis (1) Cellulitis of anterior lower leg: Status: Acute (2) Peripheral vascular disease of extremity: Status: Acute (3) Venous thromboembolism: Status: Acute (4) Subtherapeutic anticoagulation: Status: Acute (5) Maggot infestation: Status: Acute (6) Smoker: Status: Acute (7) Peripheral vascular disease of lower extremity with ulceration: Status: Acute DS: Summary Hospital Course Hospital Course: History of presenting illness: Date of Service: 04/09/23 Chief Complaint: Maggots in wound A 57 years old male with PMH of PAD, chronic wounds, smoker w Hx of substance abuse on Suboxone who presents to the hospital with LLE chronic wound infestation with maggots. The patienr reports that he did not get supplies or medications for the last 3 days. stating that 2 days ago he noticed maggots falling off his wound as there was an eschar there so he cut it out including part of the muscle and was able to remove more maggots. Went to wound clinic where the wound was rinsed with removal of more maggots. He denies any fever or chills but reports increase drainage and pain in the wound. Admitted for further management and surgical evaluation.? Hospital course: 57 years old male with PMH of PAD, chronic wounds, smoker w Hx of substance abuse on Suboxone who presents to the hospital with LLE chronic wound infestation with maggots. Admitted with diagnosis of Chronic LE wound with surrounding cellulitis and maggot infestation and treated with Clindamycin IV noted to have normal WBC, blood cultures x2 negative ,Underwent debridement by Dr. Quintero in OR on 04/10/23, post surgery doing well recommend to continue dressing change twice daily, continue VNA services and wound care as outpatient recommend outpatient follow-up with Dr. Quintero History of DVT on Coumadin, Subtherapeutic INR was not taking warfarin at home since ran out of prescription continue warfarin, INR remains subtherapeutic at 1.4, recommend to repeat PT INR early next week. Smoking history continue nicotine patch, counseling done. Time Spent with Patient Time attestation: Total time managing care of this patient today ____ minutes. Discharge coordination time: Greater than 30 minutes Quality: Safe Use of Opioids Does Pt have an Active Cancer Diagnosis on the Problem List?: No Quality: Stroke Does the patient have a stroke diagnosis?: No Physical Exam Vital Signs: Vital Signs: Last Vital Signs Temp 97.2 F 04/12/23 08:00 Pulse 82 04/12/23 08:00 Resp 20 04/12/23 08:00 BP 116/64 04/12/23 08:00 Pulse Ox 95 04/12/23 08:00 O2 Del Method Nasal Cannula 04/12/23 08:00 BMI result Body Mass Index 30.5 Const: Other: Constitutional : A wake, alert, not i n distress Neck : Normal inspection, Supple Cardiovasc ular : RRR, no JVP , no lower extremi ty edema Respirato ry : good bilatera l air entry,? no c rackles, wheezes o r rhonchi Gastroin testinal:? soft, l ax, Normal bowel s ounds, Non tender Skin : Warm, Dry N eurological : Aler t & oriented x3, N o focal deficit , CN 2-12 within nor mal Extremities:? Chronic wound 1 cm x 1 cm in the RLE w no drainage or maggots. ? LLE woun d with good granul ation tissue, no n ecrotic tissue, no drainage noted. DS: Data Data Completed and Pending Labs on day of discharge: Laboratory Results - last 24 hr 04/12/23 05:48 PT 16.5 H INR 1.4 H Preliminary micro results at discharge 04/09/23 16:00 Blood Culture - Preliminary Blood - Venous No growth after 48 hours. 04/09/23 15:52 Blood Culture - Preliminary Blood - Venous No growth after 48 hours. Discharge Plan Discharge Anticipated Discharge Date/Time: 04/12/23 10:27 Patient Disposition: Home Health Service Discharge Diagnosis: Left leg wound and cellulitis Referrals: Gage Geronimo MD [Primary Care Provider] - 1 Week Discharge Medications: New amoxicillin-pot clavulanate 875-125 mg tablet 1 tab PO BID Qty: 4 0RF Continued warfarin 5 mg tablet 7.5 mg PO DAILY gabapentin 800 mg tablet 800 mg PO QID buprenorphine-naloxone 8-2 mg film 2 film sublingual DAILY nicotine (polacrilex) 4 mg gum 4 mg PO Q2H PRN (Reason: nicotine cravings) 30 Days Qty: 40 2RF Discharge Orders: Discharge Order (Routine); Ordered 04/12/23 Ordered By: Maria G Barnes Diet: Advance to usual diet Activity on Discharge: As tolerated Stand Alone Forms: Patient Portal Discharge page Care Plan Goals: Continue dressing twice daily with which to Dr. Funk gauze soaked with Dakin solution followed by LAUREN adam and Samira Follow PT INR closely with INR goal of 2-3 Check INR on 04/14 ,take Coumadin 7.5 mg 1 tablet daily Going home with VNA services for wound care Health Concerns: History of DVT on Coumadin/left leg wound Plan of Treatment: outpatient follow-up with wound clinic and with general surgeon Dr. Quintero call for appointment in 2 weeks Assessment: as above
--- NOTE | 2023-04-12 11:56 | W.MHC.F2F ---
Service Date Service Date: 04/12/23 Encounter Date of encounter: 04/12/23 Reasons for Services Signs and symptoms assessed: left leg wound Reason for [facility] wound care Homebound: Leaving the home is medically contraindicated at this time without the asist of a device and/or another person due th the listed conditions above and below. Reason homebound: pain with ambulation Certification: Based on the above findings, I certify that this patient is confined to the home and needs intermittent [facility] care, physical therapy and/or speech therapy, or continues to need occupational therapy. The patient is under my care, and I have initiated the establishment of the plan of care. The patient will be followed by a physician who will periodically review the plan of care. Time Spent With Patient Time: Total time managing care of this patient today ____ minutes.
--- NOTE | 2023-04-12 14:12 | MHC.CM.PN ---
CM RECEIVED MESSAGE FROM NA THAT PT IS NOT ACTUALLY ACTIVE [facility] AND HAS NOT SEEN PREVIOUS PCP ELIAS RIVERA SINCE DECEMBER 2021. PER NA THEY WILL FOLLOW-UP [facility] OFFICE ON FRIDAY WHEN THEY REOPEN AND MAY STILL BE ABLE TO PROVIDE SERVICES FOR PT.
--- NOTE | 2023-04-14 12:04 | MHC.CM.PN ---
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 Call placed to patient- he will go to out pt draw lab in [facility] for INR check tomorrow 04/15 He has enough dressing supplies to last him until his next Wound care clinic appt this week. Call placed to Wound Care Clinic to inform them- Left VM- they are closed for lunch.
== END 2023-04-12 11:39 | disposition home health service (06) | DRG 580 ==
LOC: HO.ED 18:34 → HO.EDOVER 18:56 → HO.S3 19:50
PROVIDERS: Physician Assistant; Surgery; Admitting Provider Student in an Organized Health Care Education/Training Program; Emergency Provider Emergency Medicine; PCP Family Medicine; Visit Provider Hospitalist
PROC: 0KBT0ZZ Excision of Left Lower Leg Muscle, Open Approach (ICD-10-PCS; principal; 2023-04-10 10:20)
DX: L97.825 Non-pressure chronic ulcer of other part of left lower leg with muscle involvement without evidence of necrosis (principal); F11.20 Opioid dependence, uncomplicated; I96 Gangrene, not elsewhere classified; L03.116 Cellulitis of left lower limb; F17.210 Nicotine dependence, cigarettes, uncomplicated; B87.1 Wound myiasis; R79.1 Abnormal coagulation profile; Z91.199 Patient's noncompliance with other medical treatment and regimen due to unspecified reason; Z71.6 Tobacco abuse counseling; Z91.040 Latex allergy status; Z79.01 Long term (current) use of anticoagulants; Z79.899 Other long term (current) drug therapy
CPT/HCPCS: 36415; 80048; 80076; 83605; 83735; 85025; 85027; 85610; 87040; 99284; J0690; J1170; J1885; J2270; J2543; J3010; J3370

== ENCOUNTER → 2023-04-09 18:35 | Outpatient (BNV) | payer OTHER, SELFPAY | PROVIDERS: Admitting Provider Student in an Organized Health Care Education/Training Program; Emergency Provider Emergency Medicine; PCP Family Medicine; Visit Provider Student in an Organized Health Care Education/Training Program | DX: L97.923 Non-pressure chronic ulcer of unspecified part of left lower leg with necrosis of muscle (principal); B87.9 Myiasis, unspecified; I73.9 Peripheral vascular disease, unspecified; Z79.01 Long term (current) use of anticoagulants; L03.116 Cellulitis of left lower limb; I82.90 Acute embolism and thrombosis of unspecified vein; F17.200 Nicotine dependence, unspecified, uncomplicated; Z51.81 Encounter for therapeutic drug level monitoring | CPT/HCPCS: 99223; 99232; 99239; G0180 ==

== ENCOUNTER → 2023-04-09 18:35 | Outpatient (BNV) | payer OTHER, SELFPAY | PROVIDERS: Admitting Provider Student in an Organized Health Care Education/Training Program; Emergency Provider Emergency Medicine; PCP Family Medicine; Visit Provider Surgery | DX: L97.923 Non-pressure chronic ulcer of unspecified part of left lower leg with necrosis of muscle (principal); B87.9 Myiasis, unspecified; L03.116 Cellulitis of left lower limb; I73.9 Peripheral vascular disease, unspecified; I82.90 Acute embolism and thrombosis of unspecified vein; Z51.81 Encounter for therapeutic drug level monitoring; Z79.01 Long term (current) use of anticoagulants; F17.200 Nicotine dependence, unspecified, uncomplicated | CPT/HCPCS: 97597; 99222; 99231; 99232 ==

== ENCOUNTER 2023-08-26 14:11 | Outpatient (AMB) | payer OTHER, SELFPAY ==
--- NOTE | 2023-08-26 14:15 | MHC.OFFVIS ---
Intake Vital Signs 08/26/23 14:28 Height 6 ft Weight 198 lb BMI 26.9 BP 121/73 Blood Pressure Location Lt brachial Position Sitting Pulse 87 Intake Visit Reasons: ? surgical debridement open wound RT lower leg Intake Note: Patient is seen in office for evaluation and treatment of possible surgical debridment of open wound right lower leg. Pt c/o: seen wound center weekly, onset 2006, currently has open wound on both lower legs, right side is smaller, admits to discharge, changing dressing every other day [employer] Coordinator Required: No Accompanied by: Other Relationship Allergies latex Allergy (Intermediate, Verified 08/26/23 14:29) Rash,Hives naproxen Allergy (Intermediate, Verified 08/26/23 14:29) Rash,Hives Medication List - Last Reconciled 08/27/23 by Aakash Quintero MD amoxicillin-pot clavulanate 875-125 mg 1 tab PO BID buprenorphine-naloxone 8-2 mg 2 film sublingual DAILY gabapentin 800 mg PO QID nicotine (polacrilex) 4 mg PO Q2H PRN 1 month warfarin 7.5 mg PO DAILY HPI HPI Comments History of Present Illness Details Patient returns for re-evaluation of his bilateral lower extremity ulceration. He previously was evaluated for a large ulceration of the left lower extremity consistent with a venous stasis ulceration which was complicated by maggot infestation. He underwent debridement in the OR several months ago and has been followed by the [facility]. He presents today to discuss possible amputation of the left leg to facilitate wound healing. He is currently using Hydrofera blue foam dressings and tolerating this well. A previous attempt at placing a skin graft on the leg at [facility] was unsuccessful. [facility] Medical History Venous thromboembolism Smoker Peripheral vascular disease of lower extremity with ulceration Opioid use disorder Peripheral vascular disease of extremity Surgical History No pertinent past surgical history Family History Mother No problems noted. Father No problems noted. 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 Do you presently have visiting nurse or other home services: No (PREVIOUSLY NOT NOW) Unable to assess alcohol history related to: Refusing to respond Alcohol intake: never Patient Tobacco Use Status: Current everyday Tobacco user Tobacco use type: Cigarette Cigarette Packs Per Day: 1 Cigarettes Per Day: 1 e-Cigarette/Vaping Use: Never Used Second Hand Smoke Exposure: No service: No Current occupational status: disabled Review of Systems Const All systems reviewed & are unremarkable except as noted in HPI and below Physical Exam Vital Signs: Last Vital Signs Pulse 87 08/26/23 14:28 BP 121/73 08/26/23 14:28 BMI result Body Mass Index 26.9 Last Vital Signs Temp 96.8 F 04/10/23 08:00 Pulse 62 04/10/23 08:00 Resp 18 04/10/23 08:00 BP 106/67 04/10/23 08:00 Pulse Ox 97 04/10/23 04:00 O2 Del Method Room Air 04/10/23 04:00 BMI result Body Mass Index 30.5 Const General: no acute distress and tired appearing Nutritional Appearance: well nourished Resp Effort & Inspection: normal respiratory effort, no audible wheezes, no cough and no respiratory distress GI Inspection: Yes normal to inspection Skin Other: See left lower extremity below Extrem Other: Left leg with extensive ulceration along the lateral surface with necrotic tissue and surrounding erythema. The ulcer measures approximately 8 cm in diameter and is fully granulated at its base. There is evidence of new epithelialization at the margins. No necrotic tissue or abscess could be identified. There is muscle tissue with overlying granulation tissue which does move when he flexes and extends ankle. Wound would normally be amenable to a skin graft placement. There is edema extending up the leg, 2+. Assessment & Plan Assessment & Plan (1) Venous stasis ulcers of both lower extremities: Code(s): I83.019 - Varicose veins of right lower extremity with ulcer of unspecified site; I83.029 - Varicose veins of left lower extremity with ulcer of unspecified site; L97.919 - Non-pressure chronic ulcer of unspecified part of right lower leg with unspecified severity; L97.929 - Non-pressure chronic ulcer of unspecified part of left lower leg with unspecified severity Plan 57-year-old male patient presenting with chronic venous stasis ulcers bilateral lower extremities. He presented today for evaluation of a possible below-knee amputation to expedite healing of the left lower extremity ulceration. I reviewed the procedure, risks and alternatives, including continued local wound care, repeat skin graft, or the amputation. He was allowed to ask questions which were answered to his apparent satisfaction. He reports that he is not interested in proceeding with any amputation at this time and is comfortable continuing the local wound care. He does not feel the skin graft will work as a failed last time. He will continue to follow-up with wound care center and follow up as needed. Coding Level of Care Code Est Pt Level 3 (09142) Diagnoses Venous stasis ulcers of both lower extremities I83.019; I83.029; L97.919; L97.929
[2023-08-26 14:28] VITALS: BP 121/73; PULSE 87; BMI 26.9
== END 2023-08-26 15:03 | disposition home or self-care (01) ==
PROVIDERS: PCP Family Medicine; Visit Provider Surgery
DX: I83.019 Varicose veins of right lower extremity with ulcer of unspecified site (principal); I83.029 Varicose veins of left lower extremity with ulcer of unspecified site; L97.919 Non-pressure chronic ulcer of unspecified part of right lower leg with unspecified severity; L97.929 Non-pressure chronic ulcer of unspecified part of left lower leg with unspecified severity
CPT/HCPCS: 99213

== ENCOUNTER → 2023-08-26 14:11 | Outpatient (BNVA) | payer OTHER, SELFPAY | PROVIDERS: PCP Family Medicine; Visit Provider Surgery | DX: I83.019 Varicose veins of right lower extremity with ulcer of unspecified site (principal); L97.919 Non-pressure chronic ulcer of unspecified part of right lower leg with unspecified severity; I83.029 Varicose veins of left lower extremity with ulcer of unspecified site; L97.929 Non-pressure chronic ulcer of unspecified part of left lower leg with unspecified severity | CPT/HCPCS: 99212 ==

== ENCOUNTER 2024-03-19 14:43 | Outpatient (REF) | payer OTHER, SELFPAY ==
[2024-03-19 17:35] LABS: MANUAL DIFF FLAG NO
[2024-03-19 17:38] LABS: Appearance Urine Clear; Color Urine Yellow; Glucose Urine UA Negative (Negative); Leukocyte Esterase Urine Negative (Negative); Nitrite Urine Negative (Negative); Specific Gravity - Urine 1.015 (1.005-1.025); Urine Blood Negative (Negative); Urine Ketones Negative (Negative); Urine Protein Negative (Neg-Trace)
[2024-03-19 17:47] LABS: Basophils Percent Auto 0.3 % (0-2); Eosinophils Absolute Auto 0.2 X10*3/uL (0.0-0.4); Eosinophils Percent Auto 3.5 % (0-4); Hematocrit 33.6 % (42.0-52.0); Imm Gran Abs Auto 0.02 X10*3/uL (0.00-0.03); Imm Gran Pct Auto 0.3 % (0.0-0.4); Lymphocytes Absolute Auto 2.1 X10*3/uL (1.2-4.9); Lymphocytes Percent Auto 32.4 % (20-40); Mean Corpuscular HGB Conc 32.7 g/dl (31.0-36.0); Mean Corpuscular Hemoglobin 29.7 pg (27.0-33.0); Mean Corpuscular Volume 90.8 fL (80.0-98.0); Mean Platelet Volume 9.8 fL (9.4-12.4); Monocytes Absolute Auto 0.6 X10*3/uL (0.1-1.2); Monocytes Percent Auto 8.6 % (2-11); Neutrophils Absolute Auto 3.6 x10*3/uL (2.0-8.3); Neutrophils Percent Auto 54.9 % (45-73); Platelet Count 184 X10*3/uL (160-400); Red Cell Distribution Width 13.9 % (11.0-16.0); White Blood Count 6.6 X10*3/uL (4.8-10.8)
[2024-03-19 18:09] LABS: Creatinine Urine 78.91 mg/dL; Microalbumin Urine < 5.0 mg/L
[2024-03-19 18:20] LABS: Alanine Aminotransferase 9 U/L (0-40); Alkaline Phosphatase 71 U/L (39-117); Anion Gap 14 (12-20); Aspartate Amino Transferase 10 U/L (5-37); Bilirubin Total 0.7 mg/dL (0.0-1.0); Blood Urea Nitrogen 10 mg/dL (9-16); Calcium 9.5 mg/dL (8.4-10.2); Carbon Dioxide 25 mmol/L (22-29); Chloride 104 mmol/L (96-108); Cholesterol 186 mg/dL (<200); Estimated Glomerular Filt Rate > 60; Glucose Fasting 102 mg/dL (60-99); HDL Cholesterol 43 mg/dL (>40); LDL Cholesterol Calculated 126 mg/dL (<100); Potassium 4.5 mmol/L (3.3-5.1); Sodium 138 mmol/L (135-145); Total Protein 7.9 g/dL (6.5-8.0); Triglycerides 85 mg/dL (<150)
[2024-03-19 18:35] LABS: TSH reflex Free T4 2.75 uIU/mL (0.32-4.0)
== END 2024-03-19 14:44 | disposition home or self-care (01) ==
LOC: HO.WFDLDS 14:43
PROVIDERS: Visit Provider Family Medicine
DX: I10 Essential (primary) hypertension (principal); Z12.5 Encounter for screening for malignant neoplasm of prostate; Z00.00 Encounter for general adult medical examination without abnormal findings
CPT/HCPCS: 36415; 80053; 80061; 81003; 82570; 84153; 84443; 85025

== ENCOUNTER 2024-03-23 12:35 | Outpatient (AMB) | payer OTHER, SELFPAY ==
--- NOTE | 2024-03-23 12:47 | MHC.PC.OV ---
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 Accompanied by: Other Relationship Allergies latex Allergy (Intermediate, Verified 03/23/24 13:11) Rash,Hives naproxen Allergy (Intermediate, Verified 03/23/24 13:11) Rash,Hives Medication List - Last Reconciled 03/23/24 by Shanae Coffey, [facility]- buprenorphine-naloxone 8-2 mg 2 film sublingual DAILY gabapentin 800 mg PO QID lamotrigine 100 mg PO DAILY nicotine (polacrilex) 4 mg PO Q2H PRN 1 month warfarin 7.5 mg PO DAILY Tobacco use date assessed: 03/23/24 Dental Screening Dental Screen Date: 03/23/24 Did you have a dental visit in the last 12 months?: No Did you have a dental problem in the last 6 months where you did not have access to dental care?: No Was dental information given to patient?: Patient declined HPI HPI Comments History of Present Illness Details 58-year-old male with PAD with ulceration, DVT, secondary hypercoagulable state, current tobacco user, polysubstance abuse on Suboxone, hyperlipidemia, hepatitis-C, MDD, chronic thrombus of mesenteric vein, normocytic anemia s/p several lower ext wound debridements, failed skin graft @ [facility], resection of small bowel Health Maintenance: ? Colon ? PSA normal 03/19/24 ? Tdap 2012 Specialists: General surgery recommended LLE below the knee amp - he refused. [facility] and [facility] in [place] Here today for complete physical exam. Chronic conditions have been reviewed. Specialists list has been updated. Health maintenance has also been reviewed. most recent labs 03/19/24 reviewed with him today cbc shows mild/chronic normocytic anemia, fasting glucose with mild elevation, otherwise normal CMP, LDL 126 otherwise normal lipid prof, normal PSA and TSH , normal UA and urine micro/alb # Having constipation. uses colace 200mg with + effect, needs referral to GI for screening colon, chronic mesenteric ischemia, hep c and constipation. GI referral placed # taking warfarin, not active w/ CC. taking 7.5mg without having his INR monitored. Denies active bleeding. INR to be checked today & referred to [facility] Anticoag #Pulm referral for lung ca screening; cont to smoke # Remains active with Wound care for his chronic ulcers of bilateral lower extremities. He should continue routine follow up there until the ulcers are healed. #c/o [place]. Would like hearing test. Audiology referral placed today. #MDD/ANAND/polysubstance abuse: no active polysub abuse in 10 years, working with [employer], active with a counselor and psychiatrist, mom January worsening depression working on getting more support to help. In addition to above, start statin to help his hyperlipidemia along with his PVD. Use Debrox for bilat ears, returned to the office in 1 week for a lavage. He will need a routine follow up with his primary care provider in a few months to follow up on his chronic conditions. [facility] Medical History (Updated 03/23/24 @ 15:30 by Shanae Coffey, [facility]) Cigar smoker motivated to quit Hx of blood clots Subtherapeutic anticoagulation Venous thromboembolism Smoker Peripheral vascular disease of lower extremity with ulceration Opioid use disorder Peripheral vascular disease of extremity Surgical History No pertinent past surgical history Family History Mother No problems noted. Father No problems noted. 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 1. Little interest or pleasure in doing things: more than half the days 2. Feeling down, depressed, or hopeless: more than half the days 3. Trouble falling or staying asleep, or sleeping too much: more than half the days 4. Feeling tired or having little energy: more than half the days 5. Poor appetite or overeating: more than half the days 6. Feeling bad about yourself - or that you are a failure or have let yourself or your family down: nearly every day 7. Trouble concentrating on things, such as reading the newspaper or watching television: nearly every day 8. Moving or speaking so slowly that other people could have noticed. Or the opposite - being so fidgety or restless that you have been moving around a lot more than usual: more than half the days 9. Thoughts that you would be better off or of hurting yourself in some way: more than half the days Total score: 20 Depression Screening Interpretation: Positive Depression Screening Follow-up: Existing condition and In treatment Depression Screening Done: Yes 44130 - PHQ-9 Billing: Yes Source: Developed by Drs. Kelvin Key, Aisha Hopkins, Tawanda Fowler and colleagues, with an educational esau from [employer]. Thrive Questionnaire Date Thrive assessed: 03/23/24 I am a: Patient What is your living situation today?: I have a steady place to live Within the past 12 months, did the food you bought not last and you didn't have the money to get more?: Often true Within the past 12 months, did you worry whether your food would run out before you got money to buy more?: Often true Do you have trouble paying for medicines?: No Do you have trouble getting transportation to medical appointments?: No Do you have trouble paying your heating and electricity bill?: Yes Do you have trouble taking care of your child, family member or friend?: No Do you have trouble with day-to-day activities such as bathing, preparing meals, shopping, managing finances, etc.?: No Are you currently unemployed and looking for a job?: No Are you interested in more education?: No Please select the resources that you would like help with: None Currently or been in a relationship where the following occur: No concerns reported THRIVE Score: 3 AUDIT C Alcohol Use Questionnaire (AUDIT-C) 1. How often do you have a drink containing alcohol?: Never 3. How often do you have six or more drinks on one occasion?: Never Total Score: 0 Score Reviewed/Action Taken: Yes ANAND-7 AMB Questionnaire ANAND-7 Date ANAND - 7 assessed: 03/23/24 Feeling nervous, anxious, or on edge: 0 = Not at all Not being able to stop or control worryin = More than half the days Worrying too much about different things: 2 = More than half the days Trouble relaxin = More than half the days Being so restless that it is hard to sit still: 1 = Several days Becoming easily annoyed or irritable: 2 = More than half the days Feeling afraid as if something awful might happen: 1 = Several days Total ANAND-7 score (0-4 normal; 5-9 mild; 10-14 moderate; 15-21 severe): 10 Source: Developed by Drs. Kelvin Key, Aisha Hopkins, Tawanda Fowler and colleagues, with an educational esau from [employer]. ANAND-7 Assessment Billing ANAND-7 Assessment Tool: ANAND-7 Assessment 48564 Physical exam (Primary Care) Vital Signs: Last Vital Signs Pulse 61 03/23/24 12:51 BP 110/62 03/23/24 12:51 Pulse Ox 95 03/23/24 12:51 Oxygen Delivery Method Room Air 03/23/24 12:51 BMI result Body Mass Index 29.1 BMI Assessment/Plan discussion: High BMI High, discussed plan: lifestyle Tobacco/Smoking Status: Tobacco use Status Tobacco use date assessed 03/23/24 03/23/24 12:52 Patient Tobacco Use Status Current everyday Tobacco 03/23/24 12:48 Tobacco use type Cigarette 03/23/24 12:48 e-Cigarette/Vaping Use Never Used 03/23/24 12:48 Are you ready to quit: No Tobacco cessation counseling provided: Yes Items discussed: Other Number of minutes spent counselin CPT code: 99604 - 4-10 Minutes PHQ-9: PHQ-9 Score PHQ-9: Total score 20 03/23/24 14:13 Depression Screening Interpretation: Positive Depression Screening Follow-up: Existing condition and In treatment Thrive Assessment: Date of Thrive Assessment Date Thrive assessed 07/30/24 07/30/24 14:13 Currently or been in a relationship where the following occur: No concerns reported Const Other: General: Chronically ill-appearing, accompanied by female Head: Normocephalic, atraumatic. Eyes: Pupils are equal, round and reactive to light and accommodation. Conjunctivae are clear. Ears: Cerumen impaction bilat Nose: Patent, without discharge. Mouth: There are no ulcers or lesions noted. No inflammation, no post nasal drip, no plaques nor exudates. edentulous Neck: Supple, no adenopathy or thyromegaly. Lungs: Clear to auscultation bilaterally. No rales, rhonchi or wheeze noted. Good air flow in all shepard. Heart: Regular rate and rhythm. No murmurs, click, rubs or gallops are noted. Abdomen: Bowel sounds present in all quadrants. The abdomen is round, nontender, unable to appreciate any organomegaly given the exam, patient reports being very ticklish. + hernia proximal to midline surgical incision, easily reduced, not painful Musculoskeletal: Joints are nontender, without swelling, redness, or effusions. Range of motion is observed to be normal. Pulses: Did not palpate lower extremity pulses Extremities: +2 edema bilateral lower extremities, with chronic vascular changes, dressings to bilat lower extremity ulcerations were not removed as they require special eyes dressing, shoes were also not removed to examine the foot as the patient declined Neurologic: Gait and station normal. Cranial Nerves 2-12 intact. Motor strength grossly symmetrical and intact. No sensory loss. Balance normal. Skin: No rashes, ulcers, or lesions noted. Turgor is good. Skin color is good. Hair and nails are without abnormalities. Psych: Normal eye contact, affect and mood appropriate, and normal interactions. Patient is alert and appropriate to context. Assessment and Plan Assessment & Plan (1) Encounter for general adult medical examination without abnormal findings: Code(s): Z00.00 - Encounter for general adult medical examination without abnormal findings (2) Arteriosclerosis of artery of lower extremity: Code(s): I70.209 - Unspecified atherosclerosis of campo arteries of extremities, unspecified extremity (3) Secondary hypercoagulability disorder: Code(s): D68.69 - Other thrombophilia (4) Tobacco dependence: Code(s): F17.200 - Nicotine dependence, unspecified, uncomplicated (5) Hyperlipidemia: Code(s): E78.5 - Hyperlipidemia, unspecified Qualifiers: Hyperlipidemia type: mixed hyperlipidemia Qualified Code(s): E78.2 - Mixed hyperlipidemia (6) Hepatitis C: Code(s): B19.20 - Unspecified viral hepatitis C without hepatic coma Qualifiers: Viral hepatitis chronicity: unspecified Hepatic coma status: without hepatic coma Qualified Code(s): B19.20 - Unspecified viral hepatitis C without hepatic coma (7) MDD (major depressive disorder), recurrent episode: Code(s): F33.9 - Major depressive disorder, recurrent, unspecified Qualifiers: Major depression episode severity: severe Psychotic features: without psychotic features Qualified Code(s): F33.2 - Major depressive disorder, recurrent severe without psychotic features (8) Chronic thrombosis of mesenteric vein: Code(s): K55.069 - Acute infarction of intestine, part and extent unspecified (9) Normocytic anemia: Code(s): D64.9 - Anemia, unspecified (10) Venous stasis ulcers of both lower extremities: Code(s): I83.019 - Varicose veins of right lower extremity with ulcer of unspecified site; I83.029 - Varicose veins of left lower extremity with ulcer of unspecified site; L97.919 - Non-pressure chronic ulcer of unspecified part of right lower leg with unspecified severity; L97.929 - Non-pressure chronic ulcer of unspecified part of left lower leg with unspecified severity (11) Opioid use disorder: Code(s): F11.99 - Opioid use, unspecified with unspecified opioid-induced disorder (12) Screen for colon cancer: Code(s): Z12.11 - Encounter for screening for malignant neoplasm of colon (13) Chronic constipation: Code(s): K59.09 - Other constipation (14) [place] (hard of hearing): Code(s): H91.90 - Unspecified hearing loss, unspecified ear (15) Impacted cerumen, bilateral: Code(s): H61.23 - Impacted cerumen, bilateral Orders: Orders Prothrombin Time INR Today Z79.01 - [facility] (current) use of anticoagulants Referrals Anticoagulation Service/Clinic D68.69 - Other thrombophilia, K55.069 - Acute infarction of intestine, part and extent unspecified Pulmonology Referral F17.200 - Nicotine dependence, unspecified, uncomplicated Gastroenterology Referral K55.069 - Acute infarction of intestine, part and extent unspecified, K59.09 - Other constipation, Z12.11 - Encounter for screening for malignant neoplasm of colon Audiology Referral H91.90 - Unspecified hearing loss, unspecified ear Medications: New atorvastatin 20 mg PO BEDTIME 90 tabs 1RF carbamide peroxide 6.5% (Debrox) 5 drps otic (ears) DAILY 15 mL 0RF BILAT EARS 5 days docusate sodium (Colace) hold for loose stools 200 mg (2 x 100 mg) PO DAILY 180 caps 2RF Patient Instructions: Smoking Cessation How to Quit There are a lot of ways to quit smoking and many resources to help you. Family members, friends, and co-workers may be supportive or encouraging, but to be successful the desire and commitment to quit must be your own. Most people who have been able to successfully quit smoking made at least one unsuccessful attempt in the past. Try not to view past attempts to quit as failures, but rather as learning experiences. Stopping smoking or using smokeless tobacco is difficult, but anyone can do it. Know the symptoms to expect when you stop. Common symptoms include: ? An intense craving for nicotine ? Anxiety, tension, restlessness, frustration, or impatience ? Difficulty concentrating ? Drowsiness or trouble sleeping, as well as bad dreams and nightmares ? Drowsiness and trouble sleeping ? Headaches ? Increased appetite and weight gain ? Irritability or depression How severe your symptoms are depends on how long you smoked and how many cigarettes you smoked each day. Feel ready to quit? ? First and foremost, set a quit date and quit completely on that day. Before your quit date, you may begin reducing your cigarette use. But remember, there is no safe level of cigarette smoking. ? List the reasons why you want to quit. Include both short- and long-term benefits. ? Identify the times you are most likely to smoke. For example, do you tend to smoke when feeling stressed or down? When out at night with friends? While drinking coffee or alcohol? When bored? While driving? Right after a meal or sex? During a work break? While watching TV or playing cards? When you are with other smokers? ? Let all of your friends, family, and co-workers know of your plan to stop smoking and your quit date. Just being aware that they know what you're going through can be helpful, especially when you are grumpy. ? Get rid of all your cigarettes just before the quit date, and clean out anything that smells like smoke, such as clothes and furniture. Make a plan about what you will do instead of smoking at those times when you are most likely to smoke. ? Be as specific as possible. For example, drink tea instead of coffee -- tea may not trigger the desire for a cigarette. Or, take a walk when you feel stressed. ? Remove ashtrays and cigarettes from the car. Place pretzels or hard candies there instead. Pretend-smoke with a straw. ? Find activities that focus your hands and mind but are not taxing or fattening. Computer games, solitaire, knitting, sewing, and crossword puzzles may help. ? If you normally smoke after eating, find other ways to end a meal. Play a tape or CD, eat a piece of fruit, get up and make a phone call, or take a walk (a good distraction that also avila calories). Make other changes in your lifestyle. ? Change your daily schedule and habits. Eat at different times or eat several small meals instead of three large ones. Sit in a different chair or even a different room. ? Satisfy your oral habits by eating celery or other low-calorie snack, chewing sugarless gum, or sucking on a cinnamon stick. ? Go to public places and restaurants where smoking is prohibited or restricted. ? Eat regular meals and don't eat too much candy or sweet things. ? Get more exercise. Take walks or ride a bike. Exercise helps relieve the urge to smoke. Set short-term quitting goals and reward yourself when you meet them. ? Every day, put the money you normally spend on cigarettes in a jar. Then buy something pleasurable after a period of time. ? Try not to think about all the days ahead you will need to avoid smoking. Take it one day at a time. ? Even one puff or one cigarette will make your desire for more cigarettes even stronger. However, it is normal to make mistakes. So even if you have one cigarette, you don't need to take the next one. Other tips to help you quit smoking and stick to it: ? Enroll in a smoking cessation program (hospitals, health departments, community centers, and work sites often offer programs). Learn about self-hypnosis or other techniques. ? Ask your health care provider about prescription medications that are safe and appropriate for you. ? Find out about nicotine patches, gum, and sprays. The [place] [employer]'s web site -- www.cancer.org -- is an excellent resource for smokers who are trying to quit, and the [employer] [place] [employer] can help some smokers kick the habit. Above all, don't get discouraged if you aren't able to quit smoking the first time. Nicotine addiction is a hard habit to break. Try something different next time. Develop new strategies, and try again. Many people take several attempts to finally kick the habit. Earwax (Cerumen Impaction) Created in Ears Earwax, called cerumen, is produced by special wax-forming glands located in the skin of the outer one-third of the ear canal. It is normal to have cerumen in ear canal as this waxy substance serves as a self-cleaning agent with protective, lubricating, and antibacterial properties. The absence of earwax may result in dry, itchy ears. Self-cleaning means there is a slow and sales planner movement of earwax and skin cells from the eardrum to the ear opening. Old earwax is constantly being transported, assisted by chewing and jaw motion, from the ear canal to the ear opening where, most of the time, it dries, flakes, and falls out. What Are the Symptoms of an Earwax Blockage? Symptoms of an earwax problem may include: Earache Feeling of plugged hearing or fullness in the ear Partial hearing loss that gets worse Tinnitus, ringing, or noises in the ear Itching, odor, or discharge Coughing Pain Infection What Causes Earwax Blockage? When a patient has wax blockage against the eardrum, it is often because they have been probing the ear with such things as cotton-tipped swabs, myriam pins, or twisted napkin corners. These objects only push the wax in deeper in the ear canal. Why Is It Dangerous to Use Swabs to Remove Earwax? Wax blockage is one of the most common causes of hearing loss. This is often caused by attempts to clean the ear with cotton swabs. Most cleaning attempts merely push the wax deeper into the ear canal which is shaped like an hourglass, causing a blockage at the narrowing part of the ear canal. In addition, accidental trauma to the ear drum or ear bones can occur if the swab is pushed too deep. Good intentions to keep ears clean may lessen the ability to hear. The ear is a delicate and complicated body part, including the skin of the ear canal and the eardrum. Therefore, special care should be given to this part of the body. Discontinue the habit of inserting cotton-tipped swabs or other objects into the ear canals. What Are the Treatment Options? Cleaning a working ear can be done by washing it with a soft cloth, but do not insert anything into the ear. Ideally, the ear canals should never have to be cleaned. However, that isn?t always the case. The ears should be cleaned when enough earwax gathers to cause symptoms or to prevent a needed assessment of the ear by your doctor. This condition is call cerumen impaction. Most cases of ear wax blockage respond to home treatments used to soften wax. Patients can try placing a few drops of mineral oil, baby oil, glycerin, or commercial drops in the ear. Detergent drops such as hydrogen peroxide or carbamide peroxide (available in most pharmacies) may also aid in the removal of wax. Irrigation or ear syringing is commonly used for cleaning and can be performed by a physician or at home using a commercially available irrigation kit. Common solutions used for syringing include water and saline, which should be warmed to body temperature to prevent dizziness. Ear syringing is most effective when water, saline, or wax dissolving drops are put in the ear canal 15 to 30 minutes before treatment. Caution is advised to avoid having your ears irrigated if you have diabetes, a hole in the eardrum (perforation), tube in the eardrum, skin problems such as eczema in the ear canal or a weakened immune system. >> If you have been prescribed Debrox, use as directed for 5 nights and return to the office on Day 6 for an ear lavage to remove the wax<< Manual removal of earwax is also effective. This is most often performed by an ENT (ear, nose, and throat) specialist, or escrow secretary, using suction or special miniature instruments, and a microscope to magnify the ear canal. Manual removal is preferred if your ear canal is narrow, the eardrum has a perforation or tube, other methods have failed, or if you have skin problems affecting the ear canal, diabetes or a weakened immune system. When Should I Talk to a Doctor? If home treatments do not help, or if wax has accumulated so much that it blocks your ear canal and your ability to hear, an ENT specialist may prescribe eardrops designed to soften wax, or they may wash or vacuum it out. Your ENT specialist may also need to remove the wax under microscopic visualization. If there is a possibility of a perforation in the eardrum, consult a physician prior to trying any [id number] remedies. Putting eardrops or other products in the ear with the presence of an eardrum perforation may cause pain or an infection. Washing water through such a hole could start an infection. If you are prone to repeated wax impaction or use hearing aids, consider seeing your doctor every six to 12 months for a checkup and routine preventive cleaning. What Questions Should I Ask My Doctor? What are the benefits and risks/side effects of different cerumen removal management options: earwax softening products, water irrigation vs. physical removal? Does cerumen accumulation vary with age, gender, familial or dietary intake? How do I manage swimming underwater with cerumen impaction? Should anything be done to the ears to prevent a buildup of earwax? How often should cerumen be removed from the ears? Are ear candles a safe option for removing earwax? Health screenings for men ages 40 to 64 You should visit your health care provider regularly, even if you feel healthy. The purpose of these visits is to: Screen for medical issues Assess your risk for future medical problems Encourage a healthy lifestyle Update vaccinations and other preventive care services Help you get to know your provider in case of an illness Information Even if you feel fine, you should still see your provider for regular checkups. These visits can help you avoid problems in the future. For example, the only way to find out if you have high blood pressure is to have it checked regularly. High blood sugar and high cholesterol level also may not have any symptoms in the early stages. Simple blood tests can check for these conditions. There are specific times when you should see your provider or receive specific health screenings. The [place] Preventive Services Task Force publishes a list of recommended screenings. Below are screening guidelines for men ages 40 to 64. BLOOD PRESSURE SCREENING Have your blood pressure checked at least once every year. Watch for blood pressure screenings in your area. Ask your provider if you can stop in to have your blood pressure checked. Ask your provider if you need your blood pressure checked more often if: You have diabetes, heart disease, kidney problems, or are overweight or have certain other health conditions You have a first-degree relative with high blood pressure You are Black Your blood pressure top number is from 120 to 129 mm Hg, or the bottom number is from 70 to 79 mm Hg If the top number is 130 mm Hg or greater or the bottom number is 80 mm Hg or greater, this is considered stage 1 hypertension. Schedule an appointment with your provider to learn how you can lower your blood pressure. Effects of age on blood pressure CHOLESTEROL SCREENING Cholesterol screening should begin at age 35 for men with no known risk factors for coronary heart disease. Repeat cholesterol screening should take place: Every 5 years for men with normal cholesterol levels More often if changes occur in lifestyle (including weight gain and diet) More often if you have diabetes, heart disease, kidney problems, or certain other conditions COLORECTAL CANCER SCREENING If you are under age 45, talk to your provider about getting screened. You may need to be screened if you have a strong family history of colon cancer or polyps. Screening may also be considered if you have risk factors such as a history of inflammatory bowel disease or polyps. If you are age 45 to 75, you should be screened for colorectal cancer. There are several screening tests available: A stool-based fecal occult blood (gFOBT) or fecal immunochemical test (FIT) every year A stool sDNA test every 1 to 3 years Flexible sigmoidoscopy every 5 years or every 10 years with stool testing FIT done every year CT colonography (virtual colonoscopy) every 5 years Colonoscopy every 10 years You may need a colonoscopy more often if you have risk factors for colorectal cancer, such as: Ulcerative colitis A personal or family history of colorectal cancer A history of growths in your colon called adenomatous polyps DENTAL EXAM Go to the dentist once or twice every year for an exam and cleaning. Your dentist will evaluate if you have a need for more frequent visits. DIABETES SCREENING All adults who do not have risk factors for diabetes should be screened starting at age 35 and repeated every 3 years. If you have other risk factors for diabetes, such as a first degree relative with diabetes, overweight or obesity, high blood pressure, prediabetes, or a history of heart disease, you may be tested more often. If you are overweight and have other risk factors, such as high blood pressure and are planning to become , screening is recommended. EYE EXAM Have an eye exam every 2 to 4 years ages 40 to 54 and every 1 to 3 years ages 55 to 64. Your provider may recommend more frequent eye exams if you have vision problems or glaucoma risk. Have an eye exam that includes an examination of your retina (back of your eye) at least every year if you have diabetes. IMMUNIZATIONS Commonly needed vaccines include: Flu shot: get one every year COVID-19 vaccine: ask your provider what is best for you Tetanus-diphtheria and acellular pertussis (Tdap) vaccine: have as one of your tetanus-diphtheria vaccines if you did not receive it as an adolescent Tetanus-diphtheria: have a booster (or Tdap) every 10 years Varicella vaccine: receive 2 doses if you never had chickenpox or the varicella vaccine and were born in 1979 or after Hepatitis B vaccine: receive 2, 3, or 4 doses, depending on your exact circumstances, if you did not receive these as a child or adolescent, until age 59 Shingles (herpes zoster) vaccine: at or after age 50 Ask your provider if you should receive other immunizations, especially if you have certain medical conditions, such as diabetes or are at increased risk for some diseases such as pneumonia. INFECTIOUS DISEASE SCREENING Screening for hepatitis C: all adults ages 18 to 79 should get a one-time test for hepatitis C. Screening for human immunodeficiency virus (HIV): all people ages 15 to 65 should get a one-time test for HIV. Depending on your lifestyle and medical history, you may need to be screened for infections such as syphilis, chlamydia, and other infections. LUNG CANCER SCREENING You should have an annual screening for lung cancer with low-dose computed tomography (LDCT) if: You are age 50 to 80 years AND You have a 20 pack-year smoking history AND You currently smoke or have quit within the past 15 years OSTEOPOROSIS SCREENING If you are age 50 to 64 and have risk factors for osteoporosis, you should discuss screening with your provider. Risk factors can include long-term steroid use, low body weight, smoking, heavy alcohol use, having a fracture after age 50, or a family history of hip fracture or osteoporosis. Osteoporosis PHYSICAL EXAM All adults should visit their provider from time to time, even if they are healthy. The purpose of these visits is to: Screen for diseases Assess risk of future medical problems Encourage a healthy lifestyle Update vaccinations and other preventive care services Maintain a relationship with a provider in case of an illness Your height, weight, and body mass index (BMI) should be checked at every exam. During your exam, your provider may ask you about: Depression and anxiety Diet and exercise Alcohol and tobacco use Safety, such as use of seat belts and smoke detectors Your medicines and risk for interactions PROSTATE CANCER SCREENING If you're 55 through 69 years old, before having the test, talk to your provider about the pros and cons of having a PSA test. Ask about: Whether screening decreases your chance of dying from prostate cancer. Whether there is any harm from prostate cancer screening, such as side effects from testing or overtreatment of cancer when discovered. Whether you have a higher risk of prostate cancer than others. If you are age 55 or younger, screening is not generally recommended. You should talk with your provider about if you have a higher risk for prostate cancer. Risk factors include: Having a family history of prostate cancer (especially a brother or father) Being If you choose to be tested, the PSA blood test is repeated over time (yearly or less often), though the best frequency is not known. Prostate examinations are no longer routinely done on men with no symptoms. Prostate cancer SKIN EXAM Your provider may check your skin for signs of skin cancer, especially if you're at high risk. People at high risk include those who have had skin cancer before, have close relatives with skin cancer, or have a weakened immune system. TESTICULAR EXAM The [place] Preventive Services Task Force (USPSTF) now recommends against performing testicular self-exams. Doing testicular self-exams has been shown to have little to no benefit. Coding Level of Care Code Est Pt Prev Care 40-64y(17413) Diagnoses Encounter for general adult medical examination without abnormal findings Z00.00 Arteriosclerosis of artery of lower extremity I70.209 Secondary hypercoagulability disorder D68.69 Tobacco dependence F17.200 Mixed hyperlipidemia E78.2 Hyperlipidemia type: mixed hyperlipidemia Hepatitis C virus infection without hepatic coma, unspecified chronicity B19.20 Viral hepatitis chronicity: unspecified Hepatic coma status: without hepatic coma Severe episode of recurrent major depressive disorder, without psychotic features F33.2 Major depression episode severity: severe Psychotic features: without psychotic features 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
[2024-03-23 12:51] VITALS: BP 110/62; PULSE 61; O2SAT 95; BMI 29.1
== END 2024-03-23 13:25 | disposition home or self-care (01) ==
PROVIDERS: PCP Nurse Practitioner Family; Visit Provider Nurse Practitioner Family
DX: Z00.00 Encounter for general adult medical examination without abnormal findings (principal); I70.209 Unspecified atherosclerosis of native arteries of extremities, unspecified extremity; D68.69 Other thrombophilia; F17.200 Nicotine dependence, unspecified, uncomplicated; F33.2 Major depressive disorder, recurrent severe without psychotic features; K55.069 Acute infarction of intestine, part and extent unspecified; I83.019 Varicose veins of right lower extremity with ulcer of unspecified site; E78.2 Mixed hyperlipidemia; L97.919 Non-pressure chronic ulcer of unspecified part of right lower leg with unspecified severity; L97.929 Non-pressure chronic ulcer of unspecified part of left lower leg with unspecified severity; F11.99 Opioid use, unspecified with unspecified opioid-induced disorder; I83.029 Varicose veins of left lower extremity with ulcer of unspecified site; D64.9 Anemia, unspecified; B19.20 Unspecified viral hepatitis C without hepatic coma; Z12.11 Encounter for screening for malignant neoplasm of colon; K59.09 Other constipation; H91.90 Unspecified hearing loss, unspecified ear; H61.23 Impacted cerumen, bilateral
CPT/HCPCS: 96127; 99396; 99406

== ENCOUNTER 2024-05-07 12:58 | Outpatient (AMB) | payer OTHER, SELFPAY ==
--- NOTE | 2024-05-07 13:01 | MHC.PC.OV ---
Vital Signs 05/07/24 13:02 Height 6 ft Weight 210 lb 8 oz BMI 28.5 BP 110/68 Blood Pressure Location Rt brachial Position Sitting Respiration 14 Pulse 70 Pulse Source Pulse Oximeter Pulse Oximetry (%) 97 Oxygen Delivery Method Room Air Intake Visit Reasons: Would like labs ordered Intake Note: patient is here for routine follow up Allergies latex Allergy (Intermediate, Verified 05/07/24 13:01) Rash,Hives naproxen Allergy (Intermediate, Verified 05/07/24 13:01) Rash,Hives Medication List - Last Reconciled 05/07/24 by Shanae Coffey, MEAL ATTENDANT- atorvastatin 20 mg PO BEDTIME buprenorphine-naloxone 8-2 mg 2 film sublingual DAILY carbamide peroxide 6.5% (Debrox) 5 drps otic (ears) DAILY 5 days docusate sodium (Colace) 200 mg (2 x 100 mg) PO DAILY gabapentin 800 mg PO QID lamotrigine 100 mg PO DAILY nicotine (polacrilex) 4 mg PO Q2H PRN 1 month warfarin 7.5 mg (1.5 x 5 mg) PO DAILY 90 days Tobacco use date assessed: 03/23/24 Dental Screening Dental Screen Date: 03/23/24 HPI HPI Comments History of Present Illness Details 58-year-old male with PAD with ulceration, DVT, secondary hypercoagulable state, current tobacco user, polysubstance abuse on Suboxone, hyperlipidemia, hepatitis-C, MDD, chronic thrombus of mesenteric vein, normocytic anemia s/p several lower ext wound debridements, failed skin graft @ [facility], resection of small bowel Specialists: General surgery recommended LLE below the knee amp - he refused. Wound Care [facility] [employer] in [place] Here today for bilat ear lavage. He has not use the Debrox. He is on chronic warfarin, however is noncompliant with anticoagulation monitoring. He was referred to the anticoagulation clinic at the last office visit. He has not returned any phone calls or showed up for any INR monitoring. He has a history of normocytic anemia. Labs done February of 2024. He is not on an iron supplement. Reviewed with him in depth today about the need to follow up with lab monitoring especially when on a medication such as warfarin. Recommended a referral to hematology for further evaluation and treatment to see if he would be a candidate for another anticoagulant that does not require monitoring. I will update a CBC as he reports generally feeling tired. He denies any overt bleeding. wants pulm and gi referral. advised these were placed at the last visit and he needs to call them to f/u to schedule his appts. Plan refer to heme to discuss alternatives to warfarin as he cannot comply w/ routine fu check pt/inr today along w cbc not on iron supplements at the current time, pending CBC results may recommend starting him on 1. Successful ear lavage This note is constructed using voice recognition software. While every effort has been made to ensure accuracy in equipment sterilizer, still errors may have been included Sometimes, these errors may affect the content or meaning of the given sentence . Total time spent caring for the patient today was 30 minutes. This includes time spent before the visit reviewing the chart, time spent during the visit, and time spent after the visit on documentation [facility] Medical History (Updated 05/07/24 @ 13:10 by Shanae Coffey, [facility]) Hepatitis C Cigar smoker motivated to quit Hx of blood clots Subtherapeutic anticoagulation Venous thromboembolism Peripheral vascular disease of lower extremity with ulceration Opioid use disorder Peripheral vascular disease of extremity Surgical History No pertinent past surgical history Family History Mother No problems noted. Father No problems noted. 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: Other (Mobile home) Housing Other:: TRAILER Do you presently have visiting nurse or other home services: No (PREVIOUSLY NOT NOW) Unable to assess alcohol history related to: Refusing to respond Alcohol intake: never Patient Tobacco Use Status: Current everyday Tobacco user Tobacco use type: Cigarette Cigarette Packs Per Day: 1 Cigarettes Per Day: 1 e-Cigarette/Vaping Use: Never Used Second Hand Smoke Exposure: No service: No Current occupational status: disabled Cognitive needs: No Hearing needs: No Vision needs: No Questionnaire Thrive Questionnaire Date Thrive assessed: 03/23/24 ANAND-7 AMB Questionnaire ANAND-7 Date ANAND - 7 assessed: 03/23/24 Source: Developed by Drs. Kelvin Key, Aisha Hopkins, Tawanda Fowler and colleagues, with an educational esau from [employer]. Physical exam (Primary Care) Vital Signs: Last Vital Signs Pulse 70 05/07/24 13:02 Resp 14 05/07/24 13:02 BP 110/68 05/07/24 13:02 Pulse Ox 97 05/07/24 13:02 Oxygen Delivery Method Room Air 05/07/24 13:02 BMI result Body Mass Index 28.5 Tobacco/Smoking Status: Tobacco use Status Tobacco use date assessed 03/23/24 05/07/24 13:04 Patient Tobacco Use Status Current everyday Tobacco 05/07/24 13:04 Tobacco use type Cigarette 05/07/24 13:04 e-Cigarette/Vaping Use Never Used 05/07/24 13:04 Are you ready to quit: No Tobacco cessation counseling provided: Yes Items discussed: Other Relapse Prevention: discussed the importance of a supportive environment, discussed extending NRT, discussed negative mood or depression after quitting, weight gain after smoking is common and discussed dietary, exercise and/or lifestyle changes Number of minutes spent counselin CPT code: 04330 - 4-10 Minutes Thrive Assessment: Date of Thrive Assessment Date Thrive assessed 03/23/24 05/07/24 13:04 Office Procedures Cerumen Removal From which ear canal was the cerumen removed: bilateral Removal: cerumen loop/spoon Notes: patient tolerated procedure well, no complications and ear canal clear [id number] Irrigation/Lavage Assessment and Plan Assessment & Plan (1) Chronic thrombosis of mesenteric vein: Code(s): K55.069 - Acute infarction of intestine, part and extent unspecified (2) Secondary hypercoagulability disorder: Code(s): D68.69 - Other thrombophilia (3) Hx of pulmonary embolus: Code(s): Z86.711 - Personal history of pulmonary embolism (4) Normocytic anemia: Code(s): D64.9 - Anemia, unspecified (5) Tobacco dependence: Code(s): F17.200 - Nicotine dependence, unspecified, uncomplicated (6) Impacted cerumen, bilateral: Code(s): H61.23 - Impacted cerumen, bilateral Orders: Orders Complete Blood Count no Diff Today D64.9 - Anemia, unspecified, D68.69 - Other thrombophilia, Z86.711 - Personal history of pulmonary embolism PT, INR - Anti Coag Today D64.9 - Anemia, unspecified, D68.69 - Other thrombophilia, Z86.711 - Personal history of pulmonary embolism Referrals Hematology & Oncology Referral D68.69 - Other thrombophilia, K55.069 - Acute infarction of intestine, part and extent unspecified, Z86.711 - Personal history of pulmonary embolism Patient Instructions: Smoking Cessation How to Quit There are a lot of ways to quit smoking and many resources to help you. Family members, friends, and co-workers may be supportive or encouraging, but to be successful the desire and commitment to quit must be your own. Most people who have been able to successfully quit smoking made at least one unsuccessful attempt in the past. Try not to view past attempts to quit as failures, but rather as learning experiences. Stopping smoking or using smokeless tobacco is difficult, but anyone can do it. Know the symptoms to expect when you stop. Common symptoms include: ? An intense craving for nicotine ? Anxiety, tension, restlessness, frustration, or impatience ? Difficulty concentrating ? Drowsiness or trouble sleeping, as well as bad dreams and nightmares ? Drowsiness and trouble sleeping ? Headaches ? Increased appetite and weight gain ? Irritability or depression How severe your symptoms are depends on how long you smoked and how many cigarettes you smoked each day. Feel ready to quit? ? First and foremost, set a quit date and quit completely on that day. Before your quit date, you may begin reducing your cigarette use. But remember, there is no safe level of cigarette smoking. ? List the reasons why you want to quit. Include both short- and long-term benefits. ? Identify the times you are most likely to smoke. For example, do you tend to smoke when feeling stressed or down? When out at night with friends? While drinking coffee or alcohol? When bored? While driving? Right after a meal or sex? During a work break? While watching TV or playing cards? When you are with other smokers? ? Let all of your friends, family, and co-workers know of your plan to stop smoking and your quit date. Just being aware that they know what you're going through can be helpful, especially when you are grumpy. ? Get rid of all your cigarettes just before the quit date, and clean out anything that smells like smoke, such as clothes and furniture. Make a plan about what you will do instead of smoking at those times when you are most likely to smoke. ? Be as specific as possible. For example, drink tea instead of coffee -- tea may not trigger the desire for a cigarette. Or, take a walk when you feel stressed. ? Remove ashtrays and cigarettes from the car. Place pretzels or hard candies there instead. Pretend-smoke with a straw. ? Find activities that focus your hands and mind but are not taxing or fattening. Computer games, solitaire, knitting, sewing, and crossword puzzles may help. ? If you normally smoke after eating, find other ways to end a meal. Play a tape or CD, eat a piece of fruit, get up and make a phone call, or take a walk (a good distraction that also avila calories). Make other changes in your lifestyle. ? Change your daily schedule and habits. Eat at different times or eat several small meals instead of three large ones. Sit in a different chair or even a different room. ? Satisfy your oral habits by eating celery or other low-calorie snack, chewing sugarless gum, or sucking on a cinnamon stick. ? Go to public places and restaurants where smoking is prohibited or restricted. ? Eat regular meals and don't eat too much candy or sweet things. ? Get more exercise. Take walks or ride a bike. Exercise helps relieve the urge to smoke. Set short-term quitting goals and reward yourself when you meet them. ? Every day, put the money you normally spend on cigarettes in a jar. Then buy something pleasurable after a period of time. ? Try not to think about all the days ahead you will need to avoid smoking. Take it one day at a time. ? Even one puff or one cigarette will make your desire for more cigarettes even stronger. However, it is normal to make mistakes. So even if you have one cigarette, you don't need to take the next one. Other tips to help you quit smoking and stick to it: ? Enroll in a smoking cessation program (hospitals, health departments, community centers, and work sites often offer programs). Learn about self-hypnosis or other techniques. ? Ask your health care provider about prescription medications that are safe and appropriate for you. ? Find out about nicotine patches, gum, and sprays. The [place] [employer]'s web site -- www.cancer.org -- is an excellent resource for smokers who are trying to quit, and the [employer] [place] [employer] can help some smokers kick the habit. Above all, don't get discouraged if you aren't able to quit smoking the first time. Nicotine addiction is a hard habit to break. Try something different next time. Develop new strategies, and try again. Many people take several attempts to finally kick the habit. 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
[2024-05-07 13:02] VITALS: BP 110/68; PULSE 70; RESP 14; O2SAT 97; BMI 28.5
== END 2024-05-07 13:25 | disposition home or self-care (01) ==
PROVIDERS: PCP Nurse Practitioner Family; Visit Provider Nurse Practitioner Family
DX: K55.069 Acute infarction of intestine, part and extent unspecified (principal); D68.69 Other thrombophilia; Z86.711 Personal history of pulmonary embolism; H61.23 Impacted cerumen, bilateral; D64.9 Anemia, unspecified; F17.210 Nicotine dependence, cigarettes, uncomplicated
CPT/HCPCS: 69209; 99214

== ENCOUNTER 2024-05-07 13:31 | Outpatient (REF) | payer OTHER, SELFPAY ==
[2024-05-07 15:04] LABS: Hematocrit 35.4 % (42.0-52.0); Hemoglobin 11.5 g/dl (14.0-18.0); Mean Corpuscular HGB Conc 32.5 g/dl (31.0-36.0); Mean Corpuscular Hemoglobin 28.7 pg (27.0-33.0); Mean Corpuscular Volume 88.3 fL (80.0-98.0); Mean Platelet Volume 9.6 fL (9.4-12.4); Platelet Count 216 X10*3/uL (160-400); Red Blood Count 4.01 X10*6/uL (4.60-5.80); Red Cell Distribution Width 14.1 % (11.0-16.0); White Blood Count 6.1 X10*3/uL (4.8-10.8)
[2024-05-07 15:12] LABS: INTERNATIONAL NORM RATIO 1.4 (0.9-1.1); Prothrombin Time 16.9 SEC (11.1-13.3)
== END 2024-05-07 13:32 | disposition home or self-care (01) ==
LOC: HO.WFDLDS 13:31
PROVIDERS: Visit Provider Nurse Practitioner Family
DX: D64.9 Anemia, unspecified (principal); D68.69 Other thrombophilia; Z86.711 Personal history of pulmonary embolism; Z79.01 Long term (current) use of anticoagulants
CPT/HCPCS: 36415; 85027; 85610

== ENCOUNTER 2024-05-28 10:57 | Outpatient (AMB) | payer OTHER, SELFPAY ==
--- NOTE | 2024-05-28 08:29 | MHC.OFFVIS ---
Intake Visit Reasons: Current Smoker Allergies latex Allergy (Intermediate, Verified 05/07/24 13:01) Rash,Hives naproxen Allergy (Intermediate, Verified 05/07/24 13:01) Rash,Hives HPI HPI Current Smoker: Details: Initial visit for this 58yo smoker with a 40PYH. Patient started smoking at age 12 for 46 years at 1ppd. Now smokes cigars - 2 or 3 a day. . Denies marijuana use. Denies second hand smoke exposure. Denies exposure to chemicals or substances like asbestos. . Reports family history of lung cancer. Brother. Denies personal history of cancers. Denies chest CT in last year. . Denies recent travel outside the [place]. Denies recent respiratory illness or recent hospitalization for respiratory issues. Reports testing positive for COVID. Admits receiving COVID Vaccine. . Denies fever, chills, new/worsening cough, hemoptysis, hoarseness or dysphagia. Denies significant chest pain, significant dyspnea or unintentional weight loss. Patient Lung Cancer Screening Questionnaire reviewed with patient by provider. . Shared Decision Making Completed. Patient meets criteria. Discussed in detail with patient, the risk vs benefit of LDCT screening. Patient consents to proceed with scan. Discussed smoking cessation. [facility] Medical History (Updated 05/28/24 @ 11:12 by Leanne Chamberlain PA-C) Hepatitis C Cigar smoker motivated to quit Hx of blood clots Subtherapeutic anticoagulation Venous thromboembolism Peripheral vascular disease of lower extremity with ulceration Opioid use disorder Peripheral vascular disease of extremity Surgical History (Updated 05/28/24 @ 11:07 by Leanne Chamberlain PA-C) History of intestinal surgery Family History (Updated 05/28/24 @ 11:05 by Leanne Chamberlain PA-C) Mother Throat cancer Father No problems noted. Brother Lung cancer Social History (Updated 05/28/24 @ 11:11 by Leanne Chamberlain PA-C) Household Members: Other Household Members Other:: MOTHER Housing: Other (Mobile home) Housing Other:: TRAILER Do you presently have visiting nurse or other home services: No (PREVIOUSLY NOT NOW) Unable to assess alcohol history related to: Refusing to respond Alcohol intake: never Patient Tobacco Use Status: Current everyday Tobacco user Tobacco use type: Cigar Cigarettes Per Day: 2 Years Smoked: (onset 12yo, 1ppd x 46yrs, now 2-3 cigars a day, 40pyh) e-Cigarette/Vaping Use: Never Used Second Hand Smoke Exposure: No service: No Current occupational status: disabled Cognitive needs: No Hearing needs: No Vision needs: No Assessment & Plan Assessment & Plan (1) Tobacco dependence: Comment: (onset 12yo, 1ppd x 46yrs, now 2-3 cigars a day, 40pyh) Code(s): F17.200 - Nicotine dependence, unspecified, uncomplicated Category: Medical Plan: - SDM visit completed today in office. - Patient meets criteria for LDCT for lung cancer screening purposes and is asymptomatic. - Smoking cessation counseling offered. Patients can always call [phone]. - Will arrange for a LDCT scan of the chest for screening purposes at [facility]. - Risks, benefits, and alternatives were discussed in detail and the patient agrees to proceed. - Risks discussed include but are not limited to: radiation exposure, anxiety during testing and while awaiting results, false negatives, false positives and possibility of additional intervention such as further imaging or surgical procedures for benign disease. - Benefits are obviously detection of lung cancer at an early stage which can lead to improved outcomes. - Discussed the importance of screening program compliance with adherence to yearly LDCT scan as scheduled - or sooner interval scans for personalized screening regimen. - Discussed follow up plan. Our office will send a letter discussing results and if needed set up phone call and office visit based on CT findings. - Patient educated on results categorization and the management decisions for suspicious findings potentially found on the screening LDCT scan. Any patient with a Lung RADS score of 3 or 4 will be reviewed by a multidisciplinary team at [facility] to form a plan of action in regards to scan findings. - If further work up is warranted for a suspicious lung finding this will be followed by the Lung Cancer Screening program in conjunction with the Thoracic Surgery Department at [facility]. - A copy of the office note and LDCT will be sent to the patient's PCP - as well as documentation on any associated further plans of care. - Incidental findings on LDCT are the PCP's responsibility. These findings are indicated with an S finding on the LDCT Assessment. A note discussing the findings will be sent to the PCP who is then responsible for further management. - All questions answered.? (2) Cigar smoker motivated to quit: Code(s): F17.290 - Nicotine dependence, other tobacco product, uncomplicated Category: Social Hx Plan: - SDM visit completed today in office. - Patient meets criteria for LDCT for lung cancer screening purposes and is asymptomatic. - Smoking cessation counseling offered. Patients can always call [phone]. - Will arrange for a LDCT scan of the chest for screening purposes at [facility]. - Risks, benefits, and alternatives were discussed in detail and the patient agrees to proceed. - Risks discussed include but are not limited to: radiation exposure, anxiety during testing and while awaiting results, false negatives, false positives and possibility of additional intervention such as further imaging or surgical procedures for benign disease. - Benefits are obviously detection of lung cancer at an early stage which can lead to improved outcomes. - Discussed the importance of screening program compliance with adherence to yearly LDCT scan as scheduled - or sooner interval scans for personalized screening regimen. - Discussed follow up plan. Our office will send a letter discussing results and if needed set up phone call and office visit based on CT findings. - Patient educated on results categorization and the management decisions for suspicious findings potentially found on the screening LDCT scan. Any patient with a Lung RADS score of 3 or 4 will be reviewed by a multidisciplinary team at [facility] to form a plan of action in regards to scan findings. - If further work up is warranted for a suspicious lung finding this will be followed by the Lung Cancer Screening program in conjunction with the Thoracic Surgery Department at [facility]. - A copy of the office note and LDCT will be sent to the patient's PCP - as well as documentation on any associated further plans of care. - Incidental findings on LDCT are the PCP's responsibility. These findings are indicated with an S finding on the LDCT Assessment. A note discussing the findings will be sent to the PCP who is then responsible for further management. - All questions answered.? Coding Level of Care Code Lung Cancer Screening G0296 Diagnoses Tobacco dependence F17.200 Cigar smoker motivated to quit F17.290
== END 2024-05-28 11:26 | disposition home or self-care (01) ==
PROVIDERS: PCP Nurse Practitioner Family; Visit Provider Physician Assistant Medical
DX: F17.210 Nicotine dependence, cigarettes, uncomplicated (principal)
CPT/HCPCS: G0296

== ENCOUNTER 2024-05-28 11:13 | Outpatient (REF) | payer OTHER, SELFPAY ==
--- NOTE | ~2024-05-28 | CT_ITS ---
EXAMINATION: CT LOW-DOSE SCREENING CHEST WITHOUT CONTRAST CLINICAL INFORMATION: Nicotine dependence, cigarettes, uncomplicated. The patient is a current smoker with a 44 pack-year history of smoking. COMPARISON: None available. TECHNIQUE: Multidetector volumetric CT imaging of the chest is performed on a Siemens SOMATOM Definition scanner without contrast using low dose technique. Additional 2D coronal and sagittal reformatted images and axial 3D maximum intensity projection (MIP) images are generated on the CT workstation. This CT examination was performed using dose optimization techniques as appropriate, variously including the following: *Automated exposure control *Adjustment of mA and/or kV according to patient size (this includes techniques or standardized protocols for targeted exams where dose is matched to indication/reason for exam; i.e. extremities or head) *Use of iterative reconstruction technique TOTAL EXAM DLP: 77 mGy-cm. CTDIvol: 4 mGy. FINDINGS: PULMONARY NODULES: Some small pulmonary nodules are seen as follows: 2 mm posterior right upper lobe (6:92) 5 mm left upper lobe lateral nodular density, likely scarring (6:96) 3 mm left upper lobe nodule (6:107) LUNGS: Lungs bilaterally symmetrically expanded. There is mild emphysema and bronchial thickening without bronchiectasis. Scarring is present at the right lung base. No effusion or pneumothorax. Central airways patent. MEDIASTINUM: No mediastinal, hilar or axillary adenopathy or free fluid collection. CORONARY ARTERY CALCIFICATION: None visualized on this study. THYROID GLAND: Unremarkable to the extent seen. CARDIOVASCULAR STRUCTURES: Aortic and heart size normal. No pericardial effusion. CHEST WALL/AXILLA: Unremarkable. UPPER ABDOMEN: Spleen is mildly enlarged at at least 13 cm in greatest transverse dimension. Included portions of the solid organs in the upper abdomen otherwise unremarkable on noncontrast imaging. OSSEOUS STRUCTURES: No suspicious focal findings. CT/CT lung screening IMPRESSION: No findings seen to suggest malignancy. ASSESSMENT: 1. Lung-RADS Category 2: Benign appearance or behavior of nodules. N/A 2. Lung-RADS Category S: Negative. There are no clinically significant or potentially clinically significant findings not related to the lungs requiring urgent additional evaluation. RECOMMENDATION: Continued routine annual low-dose CT lung screening in 1 year is recommended. An order for CT CHEST LOW DOSE CANCER SCREENING ([id number]) can be placed. Electronically signed by: Jack Perkins MD 07/13/2024 09:06 AM S[facility]WE[facility]
== END 2024-05-28 11:14 | disposition home or self-care (01) ==
LOC: HO.CT 11:13
PROVIDERS: PCP Nurse Practitioner Family; Visit Provider Physician Assistant Medical
DX: Z12.2 Encounter for screening for malignant neoplasm of respiratory organs (principal); F17.210 Nicotine dependence, cigarettes, uncomplicated
CPT/HCPCS: 71271; G0296

== ENCOUNTER 2024-06-21 13:01 | Outpatient (AMB) | payer OTHER, SELFPAY ==
--- NOTE | 2024-06-21 13:05 | A.OFFPC_ITS ---
Vital Signs 06/21/24 13:06 Height 6 ft BMI Reason not done Patient refused/unable BP 114/68 Blood Pressure Location Lt brachial Position Sitting Respiration 12 Pulse 68 Pulse Source Pulse Oximeter Pulse Oximetry (%) 99 Oxygen Delivery Method Room Air Intake Visit Reasons: f/u labs Intake Note: follow up Allergies latex Allergy (Intermediate, Verified 06/21/24 13:55) Rash,Hives naproxen Allergy (Intermediate, Verified 06/21/24 13:55) Rash,Hives Medication List - Last Reconciled 06/21/24 by Shanae Coffey, ABSORPTION OPERATOR- atorvastatin 20 mg PO BEDTIME buprenorphine-naloxone 8-2 mg 2 film sublingual DAILY docusate sodium (Colace) 200 mg (2 x 100 mg) PO DAILY gabapentin 800 mg PO QID lamotrigine 100 mg PO DAILY nicotine (polacrilex) 4 mg PO Q2H PRN 1 month warfarin 7.5 mg (1.5 x 5 mg) PO DAILY 90 days Tobacco use date assessed: 03/23/24 Dental Screening Dental Screen Date: 03/23/24 HPI HPI Comments History of Present Illness Details 58-year-old male with PAD with ulceratio n, DVT, secondary hypercoagulable state, current tobacco user, polysubstance abuse on Suboxone, hyperlipidemia, hepatitis-C, MDD, chronic thrombus of mesenteric vein, normocytic anemia s/p several lower ext wound debridements, failed skin graft @ [facility], resection of small bowel Specialists: General surgery recommended LLE below the knee amp - he refused. Wound Care [facility]NA Optho Counselor and Psych [employer] [place] in [place] [facility] Here today for a follow up. His caregiver Shayna is very anxious about health and wants him to be seen every few months. He himself does not offer any complaints. I referred him to Hematology to evaluate the need for warfarin versus a different anti coag as he is noncompliant with INR monitoring. The last INR was in April. He continues to take 7.5 mg of warfarin daily. She denies any signs of bleeding. His INR was subtherapeutic. Initial visit 06/15/24 with Tg to derrick however he missed this appt. I have asked him and his caregiver to reschedule this reviewed once again the indications for this referral. Had appt w/ [facility] - told they could not feel pulse in RLE. Needs imaging done. He has not scheduled this yet. Strongly encouraged him to schedule a follow up and educated on the risks of not following through Left breast pain for > 1 year, reports has had imaging done. I dont have any results of this. He did have CT of lung 05/28/24, no results yet. If the CT shows any findings of the left breast can make a new referral or follow up. However at this time the patient reports that is much better than it has been. He also reports that some imaging has been done it was reassuring. Once again I do not have the records for this. The caregiver is complaining of him Having chest pain pain w/ activity that comes and goes. Overall it does not bother him too much however He would like to see Cards for this. General: Chronically ill-appearing, accompanied by female Head: Normocephalic, atraumatic. Eyes: Pupils are equal, round and reactive to light and accommodation. Conjun ctivae are clear. Mouth: There are no ulcers or lesions noted. No inflammation, no post nasal drip, no plaques nor exudates. edentulous Lungs: Clear to auscultation bilaterally. No rales, rhonchi or wheeze noted. Good air flow in all shepard. Heart: Regular rate and rhythm. No murmurs, click, rubs or gallops are noted. Abdomen: Bowel sounds present in all quadrants. The abdomen is round, no ntender, unable to appreciate any organomegaly given the exam, patient reports being very ticklish. + hernia proximal to midline surgical incision, easily reduced, not painful Pulses: Did not palpate lower extremity pulses Extremities: +2 edema bilateral lower extremities, with chronic vascular changes, dressings to bilat lower extremity ulcerations were not removed Neurologic: Gait and station normal. Cranial Nerves 2-12 intact. Motor strength grossly symmetrical and intact. No sensory loss. Balance normal. Psych: Normal eye contact, affect and mood appropriate, and normal interactio ns. Patient is alert and appropriate to context. Plan Requested for updated labs to be done again at the beginning of the year. Follow up with Hematology and vascular. Continue all medications as currently prescribed. Referral placed for Cardiology. The patient request to be seen in August or September of 2024. Clinically I do not see an indication for this however he and his caregiver wish for this appointment. Total time spent caring for the patient today was 41 minutes. This includes time spent before the visit reviewing the chart, time spent during the visit, and time spent after the visit on documentation\ This note is constructed using voice recognition software. While every effort has been made to ensure accuracy in tobacco warehouse agent, still errors may have been included Sometimes, these errors may affect the content or meaning of the given sentence . [facility] Medical History (Updated 06/21/24 @ 17:46 by Shanae Coffey [facility]) Hepatitis C Cigar smoker motivated to quit Hx of blood clots Subtherapeutic anticoagulation Venous thromboembolism Peripheral vascular disease of lower extremity with ulceration Opioid use disorder Peripheral vascular disease of extremity Surgical History (Updated 05/28/24 @ 11:07 by Leanne Chamberlain PA-C) History of intestinal surgery Family History (Updated 05/28/24 @ 11:05 by Leanne Chamberlain PA-C) Mother Throat cancer Father No problems noted. Brother Lung cancer Social History (Updated 05/28/24 @ 11:11 by Leanne Chamberlain PA-C) Household Members: Other Household Members Other:: MOTHER Housing: Other (Mobile home) Housing Other:: TRAILER Do you presently have visiting nurse or other home services: No (PREVIOUSLY NOT NOW) Unable to assess alcohol history related to: Refusing to respond Alcohol intake: never Patient Tobacco Use Status: Current everyday Tobacco user Tobacco use type: Cigar Cigarettes Per Day: 2 Years Smoked: (onset 12yo, 1ppd x 46yrs, now 2-3 cigars a day, 40pyh) e-Cigarette/Vaping Use: Never Used Second Hand Smoke Exposure: No service: No Current occupational status: disabled Cognitive needs: No Hearing needs: No Vision needs: No Questionnaire PHQ-9 Over the last 2 weeks, how often have you been bothered by any of the following problems? 1. Little interest or pleasure in doing things: several days 2. Feeling down, depressed, or hopeless: several days 3. Trouble falling or staying asleep, or sleeping too much: not at all 4. Feeling tired or having little energy: several days 5. Poor appetite or overeating: more than half the days 6. Feeling bad about yourself - or that you are a failure or have let yourself or your family down: not at all 7. Trouble concentrating on things, such as reading the newspaper or watching television: more than half the days 8. Moving or speaking so slowly that other people could have noticed. Or the opposite - being so fidgety or restless that you have been moving around a lot more than usual: not at all 9. Thoughts that you would be better off or of hurting yourself in some way: not at all Total score: 7 Source: Developed by Drs. Kelvin Key, Aisha Hopkins, Tawanda Fowler and colleagues, with an educational esau from [employer]. Thrive Questionnaire Date Thrive assessed: 03/23/24 I am a: Patient What is your living situation today?: I have a steady place to live Within the past 12 months, did the food you bought not last and you didn't have the money to get more?: Often true Within the past 12 months, did you worry whether your food would run out before you got money to buy more?: Often true Do you have trouble paying for medicines?: No Do you have trouble getting transportation to medical appointments?: No Do you have trouble paying your heating and electricity bill?: Yes Do you have trouble taking care of your child, family member or friend?: No Do you have trouble with day-to-day activities such as bathing, preparing meals, shopping, managing finances, etc.?: No Are you currently unemployed and looking for a job?: No Are you interested in more education?: No Please select the resources that you would like help with: Housing/Halfway and Utilities Currently or been in a relationship where the following occur: No concerns reported THRIVE Score: 3 AUDIT C Alcohol Use Questionnaire (AUDIT-C) 1. How often do you have a drink containing alcohol?: Never Total Score: 0 ANAND-7 AMB Questionnaire ANAND-7 Date ANAND - 7 assessed: 03/23/24 Feeling nervous, anxious, or on edge: 1 = Several days Not being able to stop or control worryin = More than half the days Worrying too much about different things: 1 = Several days Trouble relaxin = More than half the days Being so restless that it is hard to sit still: 1 = Several days Becoming easily annoyed or irritable: 2 = More than half the days Feeling afraid as if something awful might happen: 0 = Not at all Total ANAND-7 score (0-4 normal; 5-9 mild; 10-14 moderate; 15-21 severe): 9 Source: Developed by Drs. Kelvin Key, Aisha Hopkins, Tawanda Fowler and colleagues, with an educational esau from [employer]. Physical exam (Primary Care) Vital Signs: Last Vital Signs Pulse 68 06/21/24 13:06 Resp 12 06/21/24 13:06 BP 114/68 06/21/24 13:06 Pulse Ox 99 06/21/24 13:06 Oxygen Delivery Method Room Air 06/21/24 13:06 Tobacco/Smoking Status: Tobacco use Status Tobacco use date assessed 03/23/24 06/21/24 13:07 Patient Tobacco Use Status Current everyday Tobacco 06/21/24 13:07 Tobacco use type Cigar 06/21/24 13:07 e-Cigarette/Vaping Use Never Used 06/21/24 13:07 PHQ-9: PHQ-9 Score PHQ-9: Total score 7 06/21/24 13:54 Thrive Assessment: Date of Thrive Assessment Date Thrive assessed 03/23/24 06/21/24 13:07 Currently or been in a relationship where the following occur: No concerns reported Results Reviewed Results Reviewed: RUN: 06/21/24 1359 PAGE 1 [facility] [address] [place] [id number] R D Internship: Gage Henriquez M.D. Specimen Inquiry Name: Kj Koo Age/Sex: 58/M : 1965 Unit#: [id number] Attend Dr: Shanae Coffey ABSORPTION OPERATOR-BC Re05/07/24 Status: DEP REF Location: [facility] Disch: SPEC : [id number] NINI: 05/07/24 STATUS: COMP REQ : [id number] RECD: 05/07/[address]: Shanae Coffey COMP: 05/07/24 ENTERED: 05/07/[address] [facility] [address]: ORDERED: PT INR Test Result Flag Reference PT* 16.9 H 11.1-13.3 SEC INR 1.4 H 0.9-1.1 INTERNATIONAL NORMALIZED RATIO (INR) REFERENCE RANGES Reference Range For patients not on anticoagulant therapy: 0.9 - 1.1 INR ranges for oral anticoagulant therapy: For prevention and treatment of venous thrombosis and pulmonary embolism: 2.0 - 3.0 For acute myocardial infarction with aspirin therapy: 2.0 - 3.0 For acute myocardial infarction without aspirin therapy: 3.0 - 4.0 For patients with mechanical prosthetic heart valves: 2.5 - 3.5 END OF REPORT RUN: 06/21/24 2204 PAGE 1 [facility] [address] [place] [id number] R D Internship: Gage Henriquez M.D. Specimen Inquiry Name: Kj Koo Age/Sex: 58/M : 1965 Unit#: [id number] Attend Dr: Shanae Coffey Re05/07/24 Status: [facility] REF Location: [facility] Disch: SPEC : [id number] NINI: 05/07/24 STATUS: COMP REQ : [id number] RECD: 05/07/[address]: Shanae Coffey COMP: 05/07/24 ENTERED: 05/07/24 OT : ORDERED: CBC No Diff Test Result Flag Reference WBC 6.1 4.8-10.8 X10*3/uL RBC 4.01 L 4.60-5.80 X10*6/uL HGB 11.5 L 14.0-18.0 g/dl HCT 35.4 L 42.0-52.0 % MCV 88.3 80.0-98.0 fL MCH 28.7 27.0-33.0 pg MCHC 32.5 31.0-36.0 g/dl RDW 14.1 11.0-16.0 % PLT 216 160-400 X10*3/uL MPV 9.6 9.4-12.4 fL NRBC Pct Auto 0.0 0.0-0.2 /100WBC NRBC Abs Auto 0.000 0.0-0.012 X10*3/uL END OF REPORT Coding Level of Care Code Est Pt Level 5 (11485) Complex EM visit Add On G2211 Diagnoses Normocytic anemia D64.9 Mixed hyperlipidemia E78.2 Hyperlipidemia type: mixed hyperlipidemia Hx of pulmonary embolus Z86.711 Intermittent chest pain R07.9 Tobacco dependence F17.200 Breast pain, left N64.4 Secondary hypercoagulability disorder D68.69 Assessment & Plan Assessment & Plan (1) Normocytic anemia: Code(s): D64.9 - Anemia, unspecified Category: Medical Plan: . (2) Hyperlipidemia: Code(s): E78.5 - Hyperlipidemia, unspecified Category: Medical Qualifiers: Hyperlipidemia type: mixed hyperlipidemia Qualified Code(s): E78.2 - Mixed hyperlipidemia Plan: . (3) Hx of pulmonary embolus: Code(s): Z86.711 - Personal history of pulmonary embolism Category: Medical Plan: . (4) Intermittent chest pain: Code(s): R07.9 - Chest pain, unspecified Category: Medical Plan: . (5) Tobacco dependence: Comment: (onset 12yo, 1ppd x 46yrs, now 2-3 cigars a day, 40pyh) Code(s): F17.200 - Nicotine dependence, unspecified, uncomplicated Category: Medical Plan: . (6) Breast pain, left: Code(s): N64.4 - Mastodynia Category: Medical Plan: . (7) Secondary hypercoagulability disorder: Code(s): D68.69 - Other thrombophilia Category: Medical Plan: . Plan . Orders: Orders Complete Blood Count no Diff 08/25/24 D64.9 - Anemia, unspecified, E78.2 - Mixed hyperlipidemia Microalbumin, Random (w Creat) 08/25/24 D64.9 - Anemia, unspecified, E78.2 - Mixed hyperlipidemia Comprehensive [place]. Panel Fast 08/25/24 D64.9 - Anemia, unspecified, E78.2 - Mixed hyperlipidemia Hemoglobin A1c 08/25/24 D64.9 - Anemia, unspecified, E78.2 - Mixed hyperlipidemia Lipid Panel 08/25/24 D64.9 - Anemia, unspecified, E78.2 - Mixed hyperlipidemia TSH reflex Free T4 08/25/24 D64.9 - Anemia, unspecified, E78.2 - Mixed hyperlipidemia Vitamin B12 and Folate 08/25/24 D64.9 - Anemia, unspecified, E78.2 - Mixed hyperlipidemia PSA, Ultra Sensitive 08/25/24 D64.9 - Anemia, unspecified, E78.2 - Mixed hyperlipidemia Referrals Cardiology Referral E78.2 - Mixed hyperlipidemia, R07.9 - Chest pain, unspecified, Z86.711 - Personal history of pulmonary embolism
[2024-06-21 13:06] VITALS: BP 114/68; PULSE 68; RESP 12; O2SAT 99
== END 2024-06-21 14:24 | disposition home or self-care (01) ==
LOC: HO.HMCFM 13:01
PROVIDERS: PCP Nurse Practitioner Family; Visit Provider Nurse Practitioner Family
DX: D64.9 Anemia, unspecified (principal); E78.2 Mixed hyperlipidemia; D68.69 Other thrombophilia; Z86.711 Personal history of pulmonary embolism; R07.9 Chest pain, unspecified; F17.200 Nicotine dependence, unspecified, uncomplicated; N64.4 Mastodynia

== ENCOUNTER → 2024-06-21 13:01 | Outpatient (BNVA) | payer OTHER, SELFPAY | PROVIDERS: PCP Nurse Practitioner Family; Visit Provider Nurse Practitioner Family | DX: D64.9 Anemia, unspecified (principal); E78.2 Mixed hyperlipidemia; R07.9 Chest pain, unspecified; N64.4 Mastodynia; D68.69 Other thrombophilia; F17.200 Nicotine dependence, unspecified, uncomplicated; Z86.711 Personal history of pulmonary embolism; Z71.6 Tobacco abuse counseling | CPT/HCPCS: 96127; 99212 ==

== ENCOUNTER → 2024-06-24 13:17 | Outpatient (AMB) | payer OTHER, SELFPAY ==
--- NOTE | 2024-06-24 13:27 | MHC.OFFVIS ---
Vital Signs 06/24/24 13:34 Height 6 ft Weight 212 lb 1.355 oz BMI 28.8 BP 119/64 Blood Pressure Location Rt brachial Position Sitting Pulse 64 Pulse Source Pulse Oximeter Pulse Oximetry (%) 96 Oxygen Delivery Method Room Air Intake Visit Reasons: Acute infarction of intestine, colo screen Intake Note: Kj presents in office today for colonoscopy screening. CC: Patient c/o constipation and occasional heartburn. Patient underwent s/p bowel surgery for bowel obstruction on 2016. 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 He is referred by Shanae Coffey. Carmen James Hard of hearing Opiate use disorder - on suboxone Smoker History of pulmonary emboli Hepatitis C High cholesterol Chronic mesenteric thrombosis Venous stasis ulcers of I bladder lower extremities Chronic constipation Hypercoagulability disorder Chronic LE wounds * SURGICAL HISTORY Intestinal surgery? SBO Laser surgery for VV * ALLERGIES Naproxen Latex * [employer] LABS: Laboratory Tests 03/19/24 05/07/24 14:48 13:33 WBC 6.1 Hgb 11.5 L Hct 35.4 L MCV 88.3 MCH 28.7 Plt Count 216 Estimated GFR > 60 Total Bilirubin 0.7 AST 10 ALT 9 Alkaline Phosphatase 71 TSH 2.75 TODAY'S VISIT He is here today with a female family member who is supportive. He is here for CRC screening. Has a complex hx of some sort of intestinal blockage and extensive surgery with complicating coagulation disorder with a dx of mesenteric infarction and PE. Has pain intermittently periumbilically and a lump to the left of the umbilicus. He suffers CIC, on suboxone therapy but he is not taking his colace scheduled as directed but only prn. However, they work well for him. For now will do COloguard until know more about his anatomy, no FHX crc or polyps. He could have surgical rearrangement or scar tissue that could make passing the scope dangerous so it is important that we have some imaging prior to considering if colonoscopy is necessary. We also need to try to diagnose the pain that he experiences periumbilically. ROV 12 weeks. [facility] Medical History (Updated 07/20/24 @ 10:36 by Marah Tovar MD) Screen for colon cancer Hepatitis C Cigar smoker motivated to quit Hx of blood clots Subtherapeutic anticoagulation Venous thromboembolism Peripheral vascular disease of lower extremity with ulceration Opioid use disorder Peripheral vascular disease of extremity Surgical History (Updated 07/19/24 @ 14:15 by Marah Tovar MD) History of intestinal surgery Family History Mother Throat cancer Father No problems noted. Brother Lung cancer Social History (Updated 07/19/24 @ 14:13 by Tim Stallings) Household Members: None and Other Household Members Other:: MOTHER Housing: Other (Mobile home) Housing Other:: TRAILER Do you presently have visiting nurse or other home services: No (PREVIOUSLY NOT NOW) Unable to assess alcohol history related to: Refusing to respond Alcohol intake: never Patient Tobacco Use Status: Former Tobacco user Tobacco use type: Cigar Years Smoked: (onset 12yo, 1ppd x 46yrs, now 2-3 cigars a day, 40pyh) e-Cigarette/Vaping Use: Never Used Second Hand Smoke Exposure: No service: No Current occupational status: disabled Gender identity: Male Cognitive needs: No Hearing needs: No Vision needs: No Review of Systems Const Denies fatigue, Denies fever(s), Denies night sweats, Denies poor appetite and Denies weight loss ENT Reports Normal hearing present, Denies dysphagia, Denies odynophagia, Denies throat swelling and Denies tongue swelling Card Reports no additional complaints Resp Reports no additional complaints GI Details: Reports abdominal pain, Denies melena, Denies bloating, Denies hematochezia, Reports constipation, Denies GI cramping, Denies dysphagia, Denies excessive flatus, Denies early satiety, Denies heartburn, Denies diarrhea, Denies nausea, Denies odynophagia, Denies vomiting and Denies hematemesis Skin/Breast Denies pruritus, Denies lesions, Denies rash and Denies jaundice Neuro Reports Normal hearing present and Denies Abnormal speech present Endo Denies fatigue Aller/Immun Denies throat swelling and Denies tongue swelling Physical Exam Vital Signs: Last Vital Signs Pulse 64 06/24/24 13:34 BP 119/64 06/24/24 13:34 Pulse Ox 96 06/24/24 13:34 Oxygen Delivery Method Room Air 06/24/24 13:34 BMI result Body Mass Index 28.8 Const General: cooperative, no acute distress, well developed and well groomed Nutritional Appearance: average body habitus and well nourished Orientation/consciousness: oriented to person, oriented to place and oriented to time Limitations: No language barrier and other limitations HEENT Head: Yes normocephalic and Yes atraumatic Eyes General: appearance normal, both eyes and all related structures Pupils: Equal, round and reactive pupils present Neck Neck: Yes normal visual inspection and Yes no lymphadenopathy Thyroid: Thyroid normal Resp Effort & Inspection: normal respiratory effort and able to speak in complete sentences Auscultation: clear to auscultation bilaterally Cardio Rate: regular rate Rhythm: regular rhythm Heart sounds: Normal, physiologic split S2 sound present Peripheral pulses: radial pulses present and posterior tibial pulses present GI Inspection: No distended, No Abdominal panniculus present, Yes obesity, Yes scar and Yes visible herniation (umbilical) Palpation (GI): Soft to palpation, nontender, no guarding, not rigid and No hepatosplenomegaly present Percussion: Yes normal to percussion Auscultation: normal bowel sounds Rectal Exam - Male: Yes deferred Abdomen image: 1. surgical scar 2. ? hernia Skin General skin exam: no rashes or lesions noted, turgor normal, skin not dry, no jaundice, No spider nevi and no striae Rashes: no rashes Nails: normal Neuro General: oriented to person, oriented to place and oriented to time Cranial nerves: Yes Equal, round and reactive pupils present and Yes Normal hearing present Speech: No Abnormal speech present Extrem General: Yes normal to inspection, No clubbing, No cyanosis and No edema Psych Appearance: grossly normal and well kempt Mental Status: mental status grossly normal Speech and movement: Slowed speech present (Psych) Affect: normal affect Attitude: cooperative Thought process: not confabulating and Impoverished thought process present Thought content: Normal thought content present Insight: Limited insight present (Psych) Judgement: Limited judgement present (Psych) Assessment & Plan Assessment & Plan (1) Chronic thrombosis of mesenteric vein: Code(s): K55.069 - Acute infarction of intestine, part and extent unspecified Category: Medical (2) Periumbilical abdominal pain: Code(s): R10.33 - Periumbilical pain Category: Medical Plan He is here today with a female family member who is supportive. He is here for CRC screening. Has a complex hx of some sort of intestinal blockage and extensive surgery with complicating coagulation disorder with a dx of mesenteric infarction and PE. Has pain intermittently periumbilically and a lump to the left of the umbilicus. He suffers CIC, on suboxone therapy but he is not taking his colace scheduled as directed but only prn. However, they work well for him. For now will do COloguard until know more about his anatomy, no FHX crc or polyps. He could have surgical rearrangement or scar tissue that could make passing the scope dangerous so it is important that we have some imaging prior to considering if colonoscopy is necessary. We also need to try to diagnose the pain that he experiences periumbilically. ROV 12 weeks. Orders: Orders CT abdomen pelvis w IV con 06/24/24 R10.33 - Periumbilical pain, K55.069 - Acute infarction of intestine, part and extent unspecified Coding Level of Care Code New Pt Level 3 (17424) Diagnoses Chronic thrombosis of mesenteric vein K55.069 Periumbilical abdominal pain R10.33
[2024-06-24 13:34] VITALS: BP 119/64; PULSE 64; O2SAT 96; BMI 28.8
== END ==
LOC: HO.HGI 13:17
PROVIDERS: PCP Nurse Practitioner Family; Visit Provider Nurse Practitioner
DX: K55.069 Acute infarction of intestine, part and extent unspecified (principal); R10.33 Periumbilical pain
CPT/HCPCS: 99203

== ENCOUNTER → 2024-06-24 13:17 | Outpatient (BNVA) | payer OTHER, SELFPAY | PROVIDERS: PCP Nurse Practitioner Family; Visit Provider Nurse Practitioner | DX: K59.00 Constipation, unspecified (principal); K55.069 Acute infarction of intestine, part and extent unspecified; R10.33 Periumbilical pain | CPT/HCPCS: 99202 ==

== ENCOUNTER → 2024-07-19 13:59 | Outpatient (BNV) | payer OTHER, SELFPAY | PROVIDERS: PCP Family Medicine; Referring Provider Family Medicine; Visit Provider Internal Medicine | DX: K55.1 Chronic vascular disorders of intestine (principal) | CPT/HCPCS: 99204; G2211 ==

== ENCOUNTER 2024-08-06 13:15 | Outpatient (REF) | payer OTHER, SELFPAY ==
[2024-08-06 17:47] LABS: Blood Urea Nitrogen 12 mg/dL (9-16); Estimated Glomerular Filt Rate > 60
== END 2024-08-06 13:16 | disposition home or self-care (01) ==
LOC: HO.WFDLDS 13:15
PROVIDERS: Visit Provider Nurse Practitioner
DX: R10.33 Periumbilical pain (principal); D68.69 Other thrombophilia
CPT/HCPCS: 36415; 82565; 84520

== ENCOUNTER 2024-09-01 12:07 | Outpatient (AMB) | payer OTHER, SELFPAY ==
--- NOTE | 2024-09-01 12:10 | A.OFFPC_ITS ---
Vital Signs 09/01/24 12:21 Height 6 ft Weight 216 lb 8 oz BMI 29.4 BP 118/68 Blood Pressure Location Rt brachial Position Sitting Respiration 12 Pulse 58 Pulse Source Pulse Oximeter Pulse Oximetry (%) 98 Oxygen Delivery Method Room Air Intake Visit Reasons: Aug/Sep routine fu, labs 1week before 30 Intake Note: Routine follow up and labs Corporate Legal Assistant Required: No Allergies latex Allergy (Intermediate, Verified 09/01/24 12:54) Rash,Hives naproxen Allergy (Intermediate, Verified 09/01/24 12:54) Rash,Hives Medication List - Last Reconciled 09/01/24 by Shanae Coffey, [facility]- apixaban (Eliquis) 5 mg PO BID atorvastatin 20 mg PO BEDTIME buprenorphine-naloxone 8-2 mg 2 film sublingual DAILY docusate sodium (Colace) 200 mg (2 x 100 mg) PO DAILY gabapentin 800 mg PO QID lamotrigine 100 mg PO DAILY lamotrigine 25 mg PO DAILY nicotine (polacrilex) 4 mg PO Q2H PRN 1 month Tobacco use date assessed: 03/23/24 Dental Screening Dental Screen Date: 03/23/24 HPI HPI Comments History of Present Illness Details 58-year-old male with PAD with ulceratio n, DVT, secondary hypercoagulable state, current tobacco user, polysubstance abuse on Suboxone, hyperlipidemia, hepatitis-C, MDD, chronic thrombus of mesenteric vein, normocytic anemia s/p several lower ext wound debridements, failed skin graft @ [facility], resection of small bowel, reports vascular procedure done 07/2024 bilat lower ext. Specialists: General surgery recommended LLE below the knee amp - he refused. Wound Care [facility] Op[facility]o Counselor and Psych [place] in [facility] Here today for routine follow up of chronic conditions. Since last office visit he was complaining of continued bilateral breast pain left worse than right. No drainage. He was on lamotrigine. He reports that the prolactin level has not b een monitored. He was managed by Psychiatry. He continues to see vascular for his PVD. His mood is stable. He is taking Eliquis now instead of warfarin for his secondary hypercoagulability. He had a consult with Hematology in June. This consult note was reviewed. Has a follow up scheduled in August. He states that he was tolerating the Eliquis until he started bleeding from his chronic leg wounds yesterday. He was able to stop the bleeding with a scared him. He did not take his Eliquis dose last night or this morning. Would like labs done. He was stop smoking. Using gum. Last time he smoked as 1-1/2 months ago. He is taking a statin as directed. He is due for Tdap and flu vaccine Colonoscopy as scheduled General: Chronically ill-appearing, accompanied by female Head: Normocephalic, atraumatic. Eyes: Pupils are equal, round and reactive to light and accommodation. Conjunctivae are clear. Mouth: There are no ulcers or lesions noted. No inflammation, no post nasal drip, no plaques nor exudates. edentulous Lungs: Clear to auscultation bilaterally. No rales, rhonchi or wheeze noted. Good air flow in all shepard. Heart: Regular rate and rhythm. No murmurs, click, rubs or gallops are noted. Abdomen: Bowel sounds present in all quadrants. The abdomen is round, nontender, unable to appreciate any organomegaly given the exam, patient reports being very ticklish. + hernia proximal to midline surgical incision, easily reduced, not painful Pulses: Did not palpate lower extremity pulses Extremities: +2 edema bilateral lower extremities, with chronic vascular changes, dressings to bilat lower extremity ulcerations were not removed Neurologic: Gait and station normal. Cranial Nerves 2-12 intact. Motor strength grossly symmetrical and intact. No sensory loss. Balance normal. Psych: Normal eye contact, affect and mood appropriate, and normal interactions. Patient is alert and appropriate to context. Plan Continue all medications as currently prescribed. Tdap and flu administered today. Labs ordered as requested. Referral placed a breast surgeon for evaluation of mastalgia. Return to the office in 6 months for complete physical exam, sooner prn Total time spent caring for the patient today was 41 minutes. This includes time spent before the visit reviewing the chart, time spent during the visit, and time spent after the visit on documentation, This note is constructed using voice recognition software. While every effort has been made to ensure accuracy in stem teacher, still errors may have been included Sometimes, these errors may affect the content or meaning of the given sentence . [facility] Medical History (Updated 09/01/24 @ 18:18 by Shanae Coffey, [facility]) Screen for colon cancer Hepatitis C Cigar smoker motivated to quit Hx of blood clots Subtherapeutic anticoagulation Venous thromboembolism Peripheral vascular disease of lower extremity with ulceration Opioid use disorder Peripheral vascular disease of extremity Surgical History (Updated 07/19/24 @ 14:15 by Marah Tovar MD) History of intestinal surgery Family History Mother Throat cancer Father No problems noted. Brother Lung cancer Social History (Updated 07/19/24 @ 14:13 by Tim Stallings) Household Members: None and Other Household Members Other:: MOTHER Housing: Other (Mobile home) Housing Other:: TRAILER Do you presently have visiting nurse or other home services: No (PREVIOUSLY NOT NOW) Unable to assess alcohol history related to: Refusing to respond Alcohol intake: never Patient Tobacco Use Status: Former Tobacco user Tobacco use type: Cigar Years Smoked: (onset 12yo, 1ppd x 46yrs, now 2-3 cigars a day, 40pyh) e-Cigarette/Vaping Use: Never Used Second Hand Smoke Exposure: No service: No Current occupational status: disabled Gender identity: Male Cognitive needs: No Hearing needs: No Vision needs: No Questionnaire PHQ-9 Over the last 2 weeks, how often have you been bothered by any of the following problems? 1. Little interest or pleasure in doing things: nearly every day 2. Feeling down, depressed, or hopeless: more than half the days 3. Trouble falling or staying asleep, or sleeping too much: not at all 4. Feeling tired or having little energy: several days 5. Poor appetite or overeating: several days 6. Feeling bad about yourself - or that you are a failure or have let yourself or your family down: nearly every day 7. Trouble concentrating on things, such as reading the newspaper or watching television: not at all 8. Moving or speaking so slowly that other people could have noticed. Or the opposite - being so fidgety or restless that you have been moving around a lot more than usual: not at all 9. Thoughts that you would be better off or of hurting yourself in some way: not at all Total score: 10 Depression Screening Interpretation: Positive Depression Screening Follow-up: Existing condition and In treatment Depression Screening Done: Yes 30352 - PHQ-9 Billing: Yes Source: Developed by Drs. Kelvin Key, Aisha Hopkins, Tawanda Fowler and colleagues, with an educational esau from [employer]. Thrive Questionnaire Date Thrive assessed: 09/01/24 I am a: Patient What is your living situation today?: I have a steady place to live Within the past 12 months, did the food you bought not last and you didn't have the money to get more?: Sometimes True Within the past 12 months, did you worry whether your food would run out before you got money to buy more?: Sometimes True Do you have trouble paying for medicines?: I choose not to answer this question Do you have trouble getting transportation to medical appointments?: I choose not to answer this question Do you have trouble paying your heating and electricity bill?: Yes Do you have trouble taking care of your child, family member or friend?: I choose not to answer this question Do you have trouble with day-to-day activities such as bathing, preparing meals, shopping, managing finances, etc.?: No Are you currently unemployed and looking for a job?: I choose not to answer this question Are you interested in more education?: No Please select the resources that you would like help with: Housing/Penitentiary, Food and Daily support Currently or been in a relationship where the following occur: No concerns reported THRIVE Score: 3 AUDIT C Alcohol Use Questionnaire (AUDIT-C) 1. How often do you have a drink containing alcohol?: Never 3. How often do you have six or more drinks on one occasion?: Never Total Score: 0 Score Reviewed/Action Taken: Yes ANAND-7 AMB Questionnaire ANAND-7 Date ANAND - 7 assessed: 09/01/24 Feeling nervous, anxious, or on edge: 2 = More than half the days Not being able to stop or control worryin = More than half the days Worrying too much about different things: 2 = More than half the days Trouble relaxin = More than half the days Being so restless that it is hard to sit still: 1 = Several days Becoming easily annoyed or irritable: 2 = More than half the days Feeling afraid as if something awful might happen: 1 = Several days Total ANNAD-7 score (0-4 normal; 5-9 mild; 10-14 moderate; 15-21 severe): 12 Source: Developed by Drs. Kelvin Key, Aisha Hopkins, Tawanda Fowler and colleagues, with an educational esau from [employer]. ANAND-7 Assessment Billing ANAND-7 Assessment Tool: ANAND-7 Assessment 16393 Physical exam (Primary Care) Vital Signs: Last Vital Signs Pulse 58 09/01/24 12:21 Resp 12 09/01/24 12:21 BP 118/68 09/01/24 12:21 Pulse Ox 98 09/01/24 12:21 Oxygen Delivery Method Room Air 09/01/24 12:21 BMI result Body Mass Index 29.4 Tobacco/Smoking Status: Tobacco use Status Tobacco use date assessed 03/23/24 09/01/24 12:11 Patient Tobacco Use Status Former Tobacco user 09/01/24 12:11 Tobacco use type Cigar 09/01/24 12:11 e-Cigarette/Vaping Use Never Used 09/01/24 12:11 PHQ-9: PHQ-9 Score PHQ-9: Total score 10 09/01/24 13:45 Depression Screening Interpretation: Positive Depression Screening Follow-up: Existing condition and In treatment Thrive Assessment: Date of Thrive Assessment Date Thrive assessed 09/01/24 09/01/24 12:11 Currently or been in a relationship where the following occur: No concerns reported Office Procedures Flu Questionnaire Does the patient have a severe egg allergy?: No Does the patient have severe life threatening allergies?: No Does the patient have a fever or illness today?: No Has the patient ever had Guillain-[place] Syndrome?: No Has the patient ever had any past reaction to a flu shot?: No Immunizations Fluarix Triv 2409-0743 (PF) 45 mcg (15 mcg x 3)/0.5 mL IM syringe Performing Provider: RENETTA Howard Performing Location: [facility] [place] Family [facility] Administered by: Allison Gamino RN on 09/01/24 13:45 Dose Route Admin Location Dispensed Lot Number Expiration Date [facility] Branding Machine Tender 0.5 mL IM Right Deltoid 0.5 mL [id number] 02/21/25 [id number] [employer] VIS Given Date VIS Provided VIS Publication Date 09/01/24 Single Vaccine 21 Eligibility Eligibility Date Funding Source Not VFC Eligible 09/01/24 Private Administration Comments: Patient received two injections in the right deltoid, the flu shot and the TDaP. Flu shot was given to the right of center due to patient's tattoo and the TDaP was given just below center. Boostrix Tdap 2.5 Lf unit-8 mcg-5 Lf/0.5 mL intramuscular syringe Performing Provider: RENETTA Howard Performing Location: [facility] – [place] Family Medicine Administered by: Allison Gamino RN on 09/01/24 13:45 Dose Route Admin Location Dispensed Lot Number Expiration Date [facility] Branding Machine Tender 0.5 mL IM Right Deltoid 0.5 mL [id number] 11/10/26 76798-730-11 [employer] VIS Given Date VIS Provided VIS Publication Date 09/01/24 Single Vaccine 21 Eligibility Eligibility Date Funding Source Not [facility] Eligible 09/01/24 Private Administration Comments: Patient received two injections in the right deltoid, the flu shot and the TDaP. Flu shot was given to the right of center due to patient's tattoo and the TDaP was given just below center. Coding Level of Care Code Est Pt Level 5 (84482) Complex EM visit Add On G2211 Diagnoses Secondary hypercoagulability disorder D68.69 Breast pain, left N64.4 Mastalgia N64.4 Mixed hyperlipidemia E78.2 Hyperlipidemia type: mixed hyperlipidemia Need for Tdap vaccination Z23 Influenza vaccination administered at current visit Z23 Arteriosclerosis of artery of lower extremity I70.209 Tobacco dependence F17.200 Severe episode of recurrent major depressive disorder, without psychotic features F33.2 Major depression episode severity: severe Psychotic features: without psychotic features Chronic thrombosis of mesenteric vein K55.069 Normocytic anemia D64.9 Venous stasis ulcers of both lower extremities I83.019; I83.029; L97.919; L97.929 Additional Codes ANAND-7 Assessment Billing - ANAND-7 Assessment Tool: ANAND-7 Assessment 59463 ([id number]) PHQ-9 - 43239 - PHQ-9 Billing: Yes ([id number]) Assessment & Plan Assessment & Plan (1) Secondary hypercoagulability disorder: Comment: 1. This is a 58 year old male with past medical history significant for IV drug abuse, hepatitis-C status post Harvoni treatment, chronic Suboxone who was diagnosed with DVT of left lower extremity in 1994/?2004 and mesenteric ischemia/thrombosis in 2017. It is unclear how he developed DVT in his left lower extremity, he was on warfarin for a year. He has history of chronic venous stasis ulcers on both his legs and is followed by [facility]. He did stop IV drug abuse since 2017. 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 There was thickening of multiple small bowel loops concerning for bowel ischemia. Who was diagnosed with SMV thrombus with ischemia. He was taken to operating room emergently, underwent SMV thrombectomy and small bowel resection with primary anastomosis. He had some thrombophilia testing including factor 2 mutation, JAK2 mutation, protein C, protein S, lupus anticoagulant which were all negative. He continues to have chronic leg problems with varicose veins and stasis ulcers. Given above history, patient is at risk for recurrent thrombosis if he stops anticoagulation. He would be a candidate for long-term anticoagulation. As he is unable to mo nitor his warfarin/INR levels, he will be switched to Eliquis 5 mg p.o. b.i.d.. Blood work today shows INR < 2. I will avoid loading dose of Eliquis at this time. Patient was advised to monitor himself for any signs of bruising or bleeding. I thank you for this referral. Follow-up in 2 months. Code(s): D68.69 - Other thrombophilia Category: Medical (2) Breast pain, left: Code(s): N64.4 - Mastodynia Category: Medical (3) Mastalgia: Code(s): N64.4 - Mastodynia Category: Medical (4) Hyperlipidemia: Code(s): E78.5 - Hyperlipidemia, unspecified Category: Medical Qualifiers: Hyperlipidemia type: mixed hyperlipidemia Qualified Code(s): E78.2 - Mixed hyperlipidemia (5) Need for Tdap vaccination: Code(s): Z23 - Encounter for immunization (6) Influenza vaccination administered at current visit: Code(s): Z23 - Encounter for immunization (7) Arteriosclerosis of artery of lower extremity: Code(s): I70.209 - Unspecified atherosclerosis of tanana arteries of extremities, unspecified extremity Category: Medical (8) Tobacco dependence: Comment: (onset 12yo, 1ppd x 46yrs, now 2-3 cigars a day, 40pyh) quit 08/2024 Code(s): F17.200 - Nicotine dependence, unspecified, uncomplicated Category: Medical (9) MDD (major depressive disorder), recurrent episode: Code(s): F33.9 - Major depressive disorder, recurrent, unspecified Category: Medical Qualifiers: Major depression episode severity: severe Psychotic features: without psychotic features Qualified Code(s): F33.2 - Major depressive disorder, recurrent severe without psychotic features (10) Chronic thrombosis of mesenteric vein: Code(s): K55.069 - Acute infarction of intestine, part and extent unspecified Category: Medical (11) Normocytic anemia: Code(s): D64.9 - Anemia, unspecified Category: Medical (12) Venous stasis ulcers of both lower extremities: Code(s): I83.019 - Varicose veins of right lower extremity with ulcer of unspecified site; I83.029 - Varicose veins of left lower extremity with ulcer of unspecified site; L97.919 - Non-pressure chronic ulcer of unspecified part of right lower leg with unspecified severity; L97.929 - Non-pressure chronic ulcer of unspecified part of left lower leg with unspecified severity Category: Medical Plan . Orders: Orders Complete Blood Count no Diff Today D68.69 - Other thrombophilia, E78.2 - Mixed hyperlipidemia, Z79.01 - FDC (current) use of anticoagulants Microalbumin, Random (w Creat) Today D68.69 - Other thrombophilia, E78.2 - Mixed hyperlipidemia, Z79.01 - intermediate project manager (current) use of anticoagulants PSA, Ultra Sensitive Today D68.69 - Other thrombophilia, E78.2 - Mixed hyperlipidemia, Z79.01 - FDC (current) use of anticoagulants Lipid Panel Today D68.69 - Other thrombophilia, E78.2 - Mixed hyperlipidemia, Z79.01 - FDC (current) use of anticoagulants TSH reflex Free T4 Today D68.69 - Other thrombophilia, E78.2 - Mixed hyperlipidemia, Z79.01 - intermediate project manager (current) use of anticoagulants Vitamin B12 and Folate Today D68.69 - Other thrombophilia, E78.2 - Mixed hyperlipidemia, Z79.01 - FDC (current) use of anticoagulants Comprehensive Met. Panel Today D68.69 - Other thrombophilia, E78.2 - Mixed hyperlipidemia, Z79.01 - FDC (current) use of anticoagulants Prothrombin Time INR Today D68.69 - Other thrombophilia, E78.2 - Mixed hyperlipidemia, Z79.01 - FDC (current) use of anticoagulants Prolactin Today D68.69 - Other thrombophilia, E78.2 - Mixed hyperlipidemia, Z79.01 - intermediate project manager (current) use of anticoagulants Influenza [id number] Immunization Today Z23 - Encounter for immunization TDaP Immunization Today Z23 - Encounter for immunization Referrals Breast Surgery Referral N64.4 - Mastodynia
[2024-09-01 12:21] VITALS: BP 118/68; PULSE 58; RESP 12; O2SAT 98; BMI 29.4
== END 2024-09-01 13:39 | disposition home or self-care (01) ==
PROVIDERS: PCP Nurse Practitioner Family; Visit Provider Nurse Practitioner Family
DX: D68.69 Other thrombophilia (principal); I70.209 Unspecified atherosclerosis of native arteries of extremities, unspecified extremity; F33.2 Major depressive disorder, recurrent severe without psychotic features; K55.069 Acute infarction of intestine, part and extent unspecified; I83.019 Varicose veins of right lower extremity with ulcer of unspecified site; I83.029 Varicose veins of left lower extremity with ulcer of unspecified site; L97.919 Non-pressure chronic ulcer of unspecified part of right lower leg with unspecified severity; N64.4 Mastodynia; E78.2 Mixed hyperlipidemia; L97.929 Non-pressure chronic ulcer of unspecified part of left lower leg with unspecified severity; Z23 Encounter for immunization; F17.200 Nicotine dependence, unspecified, uncomplicated

== ENCOUNTER → 2024-09-01 12:07 | Outpatient (BNVA) | payer OTHER, SELFPAY | PROVIDERS: PCP Nurse Practitioner Family; Visit Provider Nurse Practitioner Family | DX: E78.5 Hyperlipidemia, unspecified (principal); F17.290 Nicotine dependence, other tobacco product, uncomplicated; B19.20 Unspecified viral hepatitis C without hepatic coma; D68.69 Other thrombophilia; N64.4 Mastodynia; E78.2 Mixed hyperlipidemia; I70.209 Unspecified atherosclerosis of native arteries of extremities, unspecified extremity; F33.2 Major depressive disorder, recurrent severe without psychotic features; K55.069 Acute infarction of intestine, part and extent unspecified; D64.9 Anemia, unspecified; I83.018 Varicose veins of right lower extremity with ulcer other part of lower leg; I83.028 Varicose veins of left lower extremity with ulcer other part of lower leg; L97.829 Non-pressure chronic ulcer of other part of left lower leg with unspecified severity; L97.819 Non-pressure chronic ulcer of other part of right lower leg with unspecified severity; Z86.718 Personal history of other venous thrombosis and embolism; Z12.5 Encounter for screening for malignant neoplasm of prostate; Z79.01 Long term (current) use of anticoagulants; Z23 Encounter for immunization | CPT/HCPCS: 36415; 80053; 80061; 82043; 82570; 82607; 82746; 84146; 84153; 84439; 84443; 85027; 85610; 90471; 90472; 90656; 90715; 96127; 99212 ==

== ENCOUNTER 2024-09-01 13:43 | Outpatient (REF) | payer OTHER, SELFPAY ==
[2024-09-01 17:56] LABS: Mean Corpuscular HGB Conc 33.3 g/dl (31.0-36.0); Mean Corpuscular Hemoglobin 30.5 pg (27.0-33.0); Mean Corpuscular Volume 91.4 fL (80.0-98.0); Platelet Count 168 X10*3/uL (160-400); Red Blood Count 3.94 X10*6/uL (4.60-5.80); Red Cell Distribution Width 13.8 % (11.0-16.0); White Blood Count 4.9 X10*3/uL (4.8-10.8)
[2024-09-01 18:07] LABS: INTERNATIONAL NORM RATIO 1.1 (0.9-1.1); Prothrombin Time 12.5 SEC (10.9-12.4)
[2024-09-01 18:10] LABS: Microalbum/Creatinine Ratio Ur 3.2 ug/mg cr (<30)
[2024-09-01 18:16] LABS: Alanine Aminotransferase 14 U/L (0-40); Albumin Level 4.2 g/dL (3.5-5.0); Alkaline Phosphatase 64 U/L (39-117); Anion Gap 13 (12-20); Aspartate Amino Transferase 19 U/L (5-37); Bilirubin Total 0.7 mg/dL (0.0-1.0); Blood Urea Nitrogen 11 mg/dL (9-16); Calcium 9.1 mg/dL (8.4-10.2); Carbon Dioxide 26 mmol/L (22-29); Chloride 106 mmol/L (96-108); Cholesterol 159 mg/dL (<200); Estimated Glomerular Filt Rate > 60; Glucose Random 93 mg/dL (60-115); HDL Cholesterol 39 mg/dL (>40); LDL Cholesterol Calculated 100 mg/dL (<100); Potassium 4.9 mmol/L (3.3-5.1); Sodium 140 mmol/L (135-145); Total Protein 7.6 g/dL (6.5-8.0); Triglycerides 100 mg/dL (<150)
[2024-09-01 18:43] LABS: Folate 9.3 ng/mL (> or = 4.0); Vitamin B12 285 pg/mL (200-900)
[2024-09-01 20:21] LABS: Free T4 (Free Thyroxine) 0.92 ng/dL (0.71-1.85)
[2024-09-02 23:28] LABS: Prolactin 10.3 ng/mL (2.0-18.0)
[2024-09-05 16:03] LABS: PSA, Ultra Sensitive 0.12 ng/mL
== END 2024-09-01 13:44 | disposition home or self-care (01) ==
LOC: HO.WFDLDS 13:43
PROVIDERS: Visit Provider Nurse Practitioner Family
DX: Z13.89 Encounter for screening for other disorder (principal)
CPT/HCPCS: 36415; 80053; 80061; 82043; 82570; 82607; 82746; 84146; 84153; 84439; 84443; 85027; 85610

== ENCOUNTER 2024-10-05 15:03 | Outpatient (AMB) | payer OTHER, SELFPAY ==
--- NOTE | 2024-10-05 15:19 | A.OFFVIS_ITS ---
Vital Signs 3 10/05/24 15:26 Height 6 ft Weight 218 lb BMI 29.6 BP 122/57 L Blood Pressure Location Lt brachial Position Sitting Pulse 62 Intake Visit Reasons: mastodynia Intake Note: Patient is seen in office for evaluation of mastodynia. 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 The pain is generally felt in the Yolanda areolar skin mostly in the upper outer quadrant but was not associated with any palpable mass, skin change, nipple discharge or other symptoms. He denies a previous history of breast problems, breast surgery or breast trauma. He denies any new medications. The symptoms began approximately 1 year ago and seemed to be increasing in severity. He denies undergoing any radiologic workup. He denies symptoms in the right breast. His family history is negative for breast cancer. [facility] Medical History Screen for colon cancer Hepatitis C Cigar smoker motivated to quit Hx of blood clots Subtherapeutic anticoagulation Venous thromboembolism Peripheral vascular disease of lower extremity with ulceration Opioid use disorder Peripheral vascular disease of extremity Surgical History History of intestinal surgery Family History Mother Throat cancer Father No problems noted. Brother Lung cancer Social History Household Members: None and Other Household Members Other:: MOTHER Housing: Other (Mobile home) Housing Other:: TRAILER Do you presently have visiting nurse or other home services: No (PREVIOUSLY NOT NOW) Unable to assess alcohol history related to: Refusing to respond Alcohol intake: never Patient Tobacco Use Status: Former Tobacco user Tobacco use type: Cigar Years Smoked: (onset 12yo, 1ppd x 46yrs, now 2-3 cigars a day, 40pyh) e-Cigarette/Vaping Use: Never Used Second Hand Smoke Exposure: No service: No Current occupational status: disabled Gender identity: Male Cognitive needs: No Hearing needs: No Vision needs: No Review of Systems Const All systems reviewed & are unremarkable except as noted in HPI and below Denies chills, Denies fever(s), Denies headache(s), Denies poor appetite and Denies weakness ENT Denies headache(s) Card Denies chest pain, Denies irregular heart rhythm, Denies palpitations and Denies dyspnea Resp Denies cough, Denies excessive phlegm production and Denies dyspnea GI Denies abdominal pain, Denies bloating, Denies change in bowel habits, Denies constipation, Denies heartburn, Denies diarrhea, Denies nausea and Denies vomiting Denies difficulty urinating and Denies urinary frequency Musc Denies back pain, Denies muscle weakness and Denies numbness Skin/Breast Denies changing lesions and Denies unusual bruising Neuro Denies headache(s), Denies numbness, Denies paresthesias and Denies weakness Psych Denies anxiety and Denies depression Endo Denies palpitations Oscar/Lymph Denies lymphadenopathy Physical Exam Vital Signs: Last Vital Signs Pulse 62 10/05/24 15:26 BP 122/57 L 10/05/24 15:26 BMI result Body Mass Index 29.6 Const General: cooperative and no acute distress Nutritional Appearance: well nourished Orientation/consciousness: patient oriented x3 Limitations: no limitations HEENT Head: Yes normocephalic and Yes atraumatic Ears: hearing grossly normal bilaterally Chest Other: Area of tenderness is located in the upper outer quadrant just lateral to the nipple-areolar complex. No palpable mass, skin change or enlarged lymph nodes are noted in this location. The remainder of the breast is soft/fatty without any palpable density. Right breast is also negative for skin change, nipple discharge, palpable mass or enlarged lymph nodes. Chest/axillae images: 2 1. Area of symptoms left breast Resp Effort & Inspection: normal respiratory effort, no audible wheezes, no cough and no respiratory distress Cardio Jugular venous distension: no JVD GI Inspection: Yes normal to inspection Skin Other: Warm, dry, no rash Neuro General: patient oriented x3 Extrem General: Yes no clubbing, cyanosis or edema Assessment & Plan Assessment & Plan (1) Breast pain, left: Code(s): N64.4 - Mastodynia Category: Medical Plan 59-year-old male patient presenting with a recent onset of left breast pain located just lateral to the nipple in the upper outer quadrant. The symptoms began 1 year as seemed to be increasing in severity. On examination no suspicious findings are noted and no palpable evidence of gynecomastia is appreciated. I recommended further workup with mammogram and ultrasound with follow-up after the studies are completed review the results and discuss treatment options. He expressed understanding and agrees with the plan. Orders: Orders 2 MM diagnostic mammo BI 10/05/24 N64.4 - Mastodynia US breast LT limited 10/05/24 N64.4 - Mastodynia Coding Level of Care Code New Pt Level 4 (48600) Diagnoses Breast pain, left N64.4
[2024-10-05 15:26] VITALS: BP 122/57; PULSE 62; BMI 29.6
--- OUTSIDE RECORDS SUMMARY | 2024-10-05 15:54 | XMS_ITS ---
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 08/16/2024 Goals Goal Patient Goal Type Associated Problems Recent Progress Patient-Stated? Author Decrease Wound Volume by X% by date (in notes) Care Plan Impaired Tissue On track( 025 2:23 PM EST) No Angela Tidwell, ALIYAH Patient and Caregiver Understand Wound Care Education Care Plan Impaired Tissue No Angela Tidwell, contaminated land consultant volume breakdown reduced by X% by week 4 Care Plan Impaired Tissue No Angela Tidwell, contaminated land consultant volume breakdown reduced by X% by week 8 Care Plan Impaired Tissue No Angela Tidwell, contaminated land consultant volume breakdown reduced by X% by week 12 Care Plan Impaired Tissue No Angela Tidwell, RN Quit using tobacco (cigarettes, smokeless, etc) Care Plan Education needed on impact of smoking on wound No Angela Tidwell, RN Reduce tobacco use (cigarettes, smokeless, etc) Care Plan Education needed on impact of smoking on wound No Angela Tidwell, RN Decrease Wound Volume by X% by date (in notes) Care Plan Education needed on impact of smoking on wound No Angela Tidwell, RN Patient and Caregiver Understand Wound Care Education Care Plan Education needed related to ulceration/compr omised skin integrity. No Angela Tidwell RN Interventions Care Plan Interventions Intervention Entry Date Outcome Provide caregiver with wound care procedure information 08/16/2024 Educate caregiver on proper wound care procedures 08/16/2024 Give provider list of wound care supplies 08/16/2024 Refill wound care supplies 08/16/2024 Send Wound Care Supplies 08/16/2024 Give provider list of wound care supplies 08/16/2024 Refill wound care supplies 08/16/2024 Send Wound Care Supplies 08/16/2024 Provide caregiver with wound care procedure information 08/16/2024 Educate caregiver on proper wound care procedures 08/16/2024 Document patient eligibility for HBO 08/16/2024 Assess patient for HBO treatment 08/16/2024 Record wound depth 08/16/2024 Record total wound area 08/16/2024 Measure wound progress 08/16/2024 Create an action plan identifying patient strengths and supports 08/16/2024 Establish quit date with patient 08/16/2024 Discuss prior cessation attempts 08/16/2024 Discuss preferred method of cessation and plan 08/16/2024 Discuss barriers to smoking cessation 08/16/2024 Discuss smoking status with patient 08/16/2024 Create an action plan identifying patient strengths and supports 08/16/2024 Establish quit date with patient 08/16/2024 Discuss prior cessation attempts 08/16/2024 Discuss preferred method of cessation and plan 08/16/2024 Discuss barriers to smoking cessation 08/16/2024 Discuss smoking status with patient 08/16/2024 Provide caregiver with wound care procedure information 08/16/2024 Educate caregiver on proper wound care procedures 08/16/2024 Document patient eligibility for HBO 08/16/2024 Assess patient for HBO treatment 08/16/2024 Record wound depth 08/16/2024 Record total wound area 08/16/2024 Measure wound progress 08/16/2024 Provide caregiver with wound care procedure information 08/16/2024 Educate caregiver on proper wound care procedures 08/16/2024 Document patient eligibility for HBO 08/16/2024 Assess patient for HBO treatment 08/16/2024 Record wound depth 08/16/2024 Record total wound area 08/16/2024 Measure wound progress 08/16/2024 Provide caregiver with wound care procedure information 08/16/2024 Educate caregiver on proper wound care procedures 08/16/2024 Document patient eligibility for HBO 08/16/2024 Assess patient for HBO treatment 08/16/2024 Record wound depth 08/16/2024 Record total wound area 08/16/2024 Measure wound progress 08/16/2024 Provide caregiver with wound care procedure information 08/16/2024 Educate caregiver on proper wound care procedures 08/16/2024 Give provider list of wound care supplies 08/16/2024 Refill wound care supplies 08/16/2024 Send Wound Care Supplies 08/16/2024 Give provider list of wound care supplies 08/16/2024 Refill wound care supplies 08/16/2024 Send Wound Care Supplies 08/16/2024 Provide caregiver with wound care procedure information 08/16/2024 Educate caregiver on proper wound care procedures 08/16/2024 Document patient eligibility for HBO 08/16/2024 Assess patient for HBO treatment 08/16/2024 Record wound depth 08/16/2024 Record total wound area 08/16/2024 Measure wound progress 08/16/2024 Related Goals and Interventions Goal Associated Intervent ions Decrease Wound Volume by X% by date (in notes) Give provider list of wound care supplie s; Refill wound care supplies; Send Wound Care Supplies; Provide caregiver with wound care procedure information; Educate caregiver on proper wound care procedures; Document patient eligibility for HBO; Assess patient for HBO treatment; Record wound depth; Record total wound area; Measure wound progress Patient and Caregiver Unders tand Wound Care Education Provide caregiver with wound care proced ure information; Educate caregiver on proper wound care procedures; Give provider list of wound care supplies; Refill wound care supplies; Send Wound Care Supplies Wound volume breakdown reduc ed by X% by week 4 Provide caregiver with wound care proced ure information; Educate caregiver on proper wound care procedures; Document patient eligibility for HBO; Assess patient for HBO treatment; Record wound depth; Record total wound area; Measure wound progress Wound volume breakdown reduc ed by X% by week 8 Provide caregiver with wound care proced ure information; Educate caregiver on proper wound care procedures; Document patient eligibility for HBO; Assess patient for HBO treatment; Record wound depth; Record total wound area; Measure wound progress Wound volume breakdown reduc ed by X% by week 12 Provide caregiver with wound care proced ure information; Educate caregiver on proper wound care procedures; Document patient eligibility for HBO; Assess patient for HBO treatment; Record wound depth; Record total wound area; Measure wound progress Quit using tobacco (cigarett es, smokeless, etc) Create an action plan identifying patien t strengths and supports; Establish quit date with patient; Discuss prior cessation attempts; Discuss preferred method of cessation and plan; Discuss barriers to smoking cessation; Discuss smoking status with patient Reduce tobacco use (cigarett es, smokeless, etc) Create an action plan identifying patien t strengths and supports; Establish quit date with patient; Discuss prior cessation attempts; Discuss preferred method of cessation and plan; Discuss barriers to smoking cessation; Discuss smoking status with patient Decrease Wound Volume by X% by date (in notes) Give provider list of wound care supplie s; Refill wound care supplies; Send Wound Care Supplies; Provide caregiver with wound care procedure information; Educate caregiver on proper wound care procedures; Document patient eligibility for HBO; Assess patient for HBO treatment; Record wound depth; Record total wound area; Measure wound progress Patient and Caregiver Unders tand Wound Care Education Provide caregiver with wound care proced ure information; Educate caregiver on proper wound care procedures; Give provider list of wound care supplies; Refill wound care supplies; Send Wound Care Supplies
--- OUTSIDE RECORDS SUMMARY | 2024-10-05 15:54 | XMS_ITS | Encounter Summary ---
Author Organization [facility] Address [address] [place] [address] Care Team Providers Care Tractor Mechanic Apprentice Name Role Phone Gage Geronimo MD Primary Care Provider [phone] Reason for Visit * Reason Comments Wound Care Encounter Details Date Type Department Care Team (Late st Contact Info) Description 09/16/2024 1:45 PM EST Office Visit [facility] [address] [place] [id number] Meño Gayle PA [address] [place] [address] Chronic venous hypertension (idiopathic) with ulcer of bilateral lower extremity (CMS/HCC) (Primary Dx); Non-pressure chronic ulcer of right ankle with fat layer exposed (CMS/HCC); Non-pressure chronic ulcer of unspecified part of left lower leg with fat layer exposed (CMS/HCC) Social History Tobacco Use Types Packs/Day Years Used Date Smoking Tobacco: Former Cigarettes 1 38 0 1975 - 06/2024 Smokeless Tobacco: Former Alcohol Use Standard Drinks/Week Comments No 0 (1 standard drink = 0.6 oz pur e alcohol) Sex and Gender Information Value Date Recorded Sex Assigned at Not on file Legal Sex Male 12:18 AM EST Gender Identity Not on file Sexual Orientation Not on file documented as of this encounter Last Filed Vital Signs Vital Sign Reading Time Taken Comments Blood Pressure 110/66 09/16/2024 2:30 PM EST Pulse 67 09/16/2024 2:30 PM EST Temperature 36.8 ??C (98.2 ??F) 09/16/2024 2:30 PM ES T Respiratory Rate 18 09/16/2024 2:30 PM EST Oxygen Saturation 100% 09/16/2024 2:30 PM EST Inhaled Oxygen Concentration - - Weight - - Height - - Body Mass Index - - documented in this encounter Progress Notes * Ashley Tidwell RN - 09/16/2024 1:45 PM EST PHYSICIAN ORDERS Go to ER if you are presenting with fever, chills, increased redness, pain, swelling, warmth aroundwound area and/or foul smelling odor. If you have any questions or concerns, please contact the [facility] [place] at . Follow up(s)/ Referrals: Vascular: as scheduled Nursing Home: N/A Additional Orders: Increase protein in your diet to help promote wound healing Edema Control: (If your compression wrap(s) feel to tight, please elevate your leg(s) about heart level. If your wrap(s) are becoming painful and/or you loose sensation of toes/ are having toe discoloration (a change from your baseline), please remove / unwrap compression and notify [facility] at . ) Tubigrip to bilateral lower extremities. Apply first thing in the morning prior to getting out of bed, OK to remove at bedtime. Ensure tubigrip extends from just behind the toes to about 2 finger widths below the knee. Offloading: N/A Negative Pressure Wound Therapy: (If wound vac is off/non functioning for more than 2 hours, please remove vac dressing, apply a wetto dry dressing and notify your home care agency) N/A Cellular/Tissue Based Products: N/A Bathing / Showering / Hygiene: May shower with protection but DO NOT get wound dressing(s) wet. Protect dressing(s) with water repellant cover ( for example- large plastic bag or cast bag) and then may take shower. Non-wound Condition/ Other Skin Care: Moisturize skin daily, avoiding wound area Wound Location(s): Wound #1 (Right Medial Lower Leg): Cleanser: Cleanse with Normal Saline Periwound: Apply Zinc Oxide to yolanda wound Topical: N/A Primary dressing: Hydrofera Blue- cut to fit to wound bed (if classic type, moisten with saline andsqueeze out excess prior to apply to wound bed) Secondary dressing: Exudry Secure with: 4 conforming gauze roll , 1 paper tape Compression Therapy: Tubigrip E Dressing Change Frequency: Daily Wound #2 (Left Lateral Lower Leg): Cleanser: Cleanse with Normal Saline Periwound: Apply Zinc Oxide to yolanda wound Topical: N/A Primary dressing: Hydrofera Blue- cut to fit to wound bed (if classic type, moisten with saline andsqueeze out excess prior to apply to wound bed) Secondary dressing: Exudry Secure with: 4 conforming gauze roll , 1 paper tape Compression Therapy: Tubigrip E Dressing Change Frequency: Daily * Ashley Tidwell RN - 09/16/2024 1:45 PM ESTAddended by: ASHLEY TIDWELL on: 09/16/2024 02:31 PM Modules accepted: Orders * SHANNAN Sullivan - 09/16/2024 1:45 PM ESTAssociated Order(s): Debridement Venous Ulcer Right;Medial;Lower Leg; Debridement Venous Ulcer Left; Lower;Lateral Leg Post-Procedure Diagnose(s): Non-pressure chronic ulcer of right ankle with fat layer exposed (CMS/HCC); Non-pressure chronic ulcer of unspecified part of left lower leg with fat layer exposed (CMS/HCC); Chronic venous hypertension (idiopathic) with ulcer of bilateral lower extremity (CMS/HCC) Images from the original note were not included. [facility] at [address] [address] Office Visit Visit Date: 09/16/2024 Patient Name: Kj Koo Date of : 1965 PCP: Gage Geronimo MD HPI: Kj is a 58-year-old male with history hypertension, hyperlipidemia, chronic pain, DVT on Eliquis, longstanding venous leg ulcers, previously seen at [place] [facility] and seen here since May 2024, returns for follow- up of his bilateral lower extremity ulcerations. He reports that since his last visit on 06/25 he has been to [facility] and has had several procedures done. Continues to use Hydrofera Blue on the wound and swears by it . No fevers or chills. Continues to not smoke. Bilateral venous leg ulcers are both improving with Hydrofera Blue. Patient states positive improvement with Hydrofera Blue. Patient denies any fever chills or worsening pain from the wounds. Assessment and Plan: Chronic venous hypertension (idiopathic) with ulcer of bilateral lower extremity (CMS/HCC) (Primary) Non-pressure chronic ulcer of right ankle with fat layer exposed (CMS/HCC) Non-pressure chronic ulcer of unspecified part of left lower leg with fat layer exposed (CMS/HCC) Other orders - Debridement - Debridement Follow-up in 1 week. Will continue with Hydrofera Blue dressing. Wounds continue to make slow progress and improvement. Patient has no sign of wound infection at this time. Bilateral Tubigrip All questions were answered to his satisfaction. He was counseled regarding my impressions, instructions for management, and the importance of compliance with treatment. Follow up in about 1 week (around 09/23/2024), or Dr Greene >>>>>>>>>>>>>>>>>>>>>>>>>>>>>>>>>>>>>>>>>>>>>>>>>>> Vital Signs: Visit Vitals BP 108/64 Pulse 62 Temp 36.8 ??C (98.2 ??F) (Temporal) Resp 18 Review of Systems: Review of Systems Constitutional: Negative for chills and fever. Skin: Positive for wound. PHYSICAL EXAM Physical Exam Vitals and nursing note reviewed. Constitutional: Appearance: Normal appearance. HENT: Head: Normocephalic. Eyes: Extraocular Movements: Extraocular movements intact. Pulmonary: Effort: Pulmonary effort is normal. Musculoskeletal: General: Normal range of motion. Skin: General: Skin is warm. Comments: See wound details in assessment and procedure note right lower extremity wound hypergranulation is noted wound edges are intact edema overall is well-controlled no undermining on wound edges. Some sloth is also noted. Left lower leg wound positive hypergranulation wound edges are intact some fibrin exudate is noted on the wound edges. No external erythema induration concerning for cellulitis bilaterally. Edema overall well-controlled on the left side also. Neurological: General: No focal deficit present. Mental Status: He is alert and oriented to person, place, and time. Psychiatric: Mood and Affect: Mood normal. WOUND ASSESSMENT If photograph of wound not visible on this note, please check under Media tab. Wound Venous Ulcer 06/10/24 Leg Right;Medial;Lower (Active) Date First Assessed: 06/10/24 Primary Wound Type: Venous Ulcer Wound Approximate Age at First Assessment (Weeks): 884 weeks Hand Hygiene Completed: Yes Location: Leg Wound Location Orientation: Right;Medial;Lower Assessments 08/12/2024 2:37 PM 09/16/2024 1:52 PM Wound Image Wound Bed Tissue Assessment Granulation;Sloughing Granulation;Red Yolanda-Wound Assessment Scarred;Yellow-brown (Hemosiderin staining) Dry;Scarred;Yellow-brown (Hemosiderin staining) Wound Length (cm) 3.5 cm 2.4 cm Wound Width (cm) 2.4 cm 1.9 cm Wound Surface Area (cm^2) 8.4 cm^2 4.56 cm^2 Wound Depth (cm) 0.1 cm 0.1 cm Wound Volume (cm^3) 0.84 cm^3 0.456 cm^3 Wound Healing % -- 46 Drainage Description Serosanguineous Serosanguineous Drainage Amount Moderate Moderate Treatments Cleansed;Other (Comment) Cleansed;Other (Comment) Dressing Tubular stocking Tubular stocking Dressing Status Removed Removed Wound Bed Granulation (%) 40 % 100 % Wound Bed Slough (%) 60 % 0 % Wound Bed Eschar (%) 0 % 0 % Tunneling 0 cm 0 cm Undermining 0 cm 0 cm Edges Well-defined edges;Attached edges Well-defined edges;Attached edges Non-staged Wound Description Full thickness Full thickness Active Orders Date Order Priority Status Authorizing Provider 09/16/24 1421 Debridement Routine Active SHANNAN Sullivan 08/26/24 1608 Wound Care Supplies Routine Active Ajit Mendez MD - Wound Care Supplies: Gauze 4x4 (non sterile) (Paper tape, 4inch rd wrap) - Wound Care Supplies: Other - Wound Care Supplies: Hydrofera Blue - Hydrofera Blue Size: 4x5 - Debridement Performed:: Yes - Wound Drainage:: Moderate - Frequency of Dressing Change: daily - Face to face evaluation was performed on: 08/26/2024 08/12/24 1531 Wound Care Supplies Routine Active Ajit Mendez MD - Wound Care Supplies: Hydrofera Blue (paper tape, 4 rd wrap) - Wound Care Supplies: Normal saline for irrigation (sterile) - 500ml - Wound Care Supplies: Gauze 4x4 (non sterile) - Wound Care Supplies: Other - Hydrofera Blue Size: 4x5 - Days Supply:: 30 - Debridement Performed:: Yes - Wound Drainage:: Moderate - Face to face evaluation was performed on: 08/12/2024 Inactive Orders Date Order Priority Status Authorizing Provider 08/26/24 1608 Debridement Venous Ulcer Right;Medial;Lower Leg Routine Completed Ajit Mendez MD 08/12/24 1522 Debridement Venous Ulcer Right;Medial;Lower Leg Routine Completed Ajit Mendez MD Wound Venous Ulcer 06/10/24 Leg Left;Lower;Lateral (Active) Date First Assessed: 06/10/24 Primary Wound Type: Venous Ulcer Wound Approximate Age at First Assessment (Weeks): 884 weeks Hand Hygiene Completed: Yes Location: Leg Wound Location Orientation: Left;Lower;Lateral Assessments 08/12/2024 2:38 PM 09/16/2024 1:53 PM Wound Image Wound Bed Tissue Assessment Granulation;Sloughing Granulation;Sloughing Yolanda-Wound Assessment Scarred;Yellow-brown (Hemosiderin staining) Dry;Scarred;Yellow-brown (Hemosiderin staining) Wound Length (cm) 11 cm 10.4 cm Wound Width (cm) 6.7 cm 6.3 cm Wound Surface Area (cm^2) 73.7 cm^2 65.52 cm^2 Wound Depth (cm) 0.2 cm 0.1 cm Wound Volume (cm^3) 14.74 cm^3 6.552 cm^3 Wound Healing % -- 56 Drainage Description Serosanguineous Serosanguineous Drainage Amount Moderate Moderate Treatments Cleansed;Other (Comment) Cleansed;Other (Comment) Dressing Tubular stocking Tubular stocking Dressing Status Removed Removed Wound Bed Granulation (%) 100 % 90 % Wound Bed Slough (%) 0 % 10 % Wound Bed Eschar (%) 0 % 0 % Tunneling 0 cm 0 cm Undermining 0 cm 0 cm Edges Attached edges;Well-defined edges -- Non-staged Wound Description Full thickness Full thickness Active Orders Date Order Priority Status Authorizing Provider 09/16/24 1422 Debridement Routine Active SHANNAN Sullivan 08/26/24 1608 Wound Care Supplies Routine Active Ajit Mendez MD - Wound Care Supplies: Gauze 4x4 (non sterile) (Paper tape, 4inch rd wrap) - Wound Care Supplies: Other - Wound Care Supplies: Hydrofera Blue - Hydrofera Blue Size: 4x5 - Debridement Performed:: Yes - Wound Drainage:: Moderate - Frequency of Dressing Change: daily - Face to face evaluation was performed on: 08/26/2024 08/12/24 1531 Wound Care Supplies Routine Active Ajit Mendez MD - Wound Care Supplies: Hydrofera Blue (paper tape, 4 rd wrap) - Wound Care Supplies: Normal saline for irrigation (sterile) - 500ml - Wound Care Supplies: Gauze 4x4 (non sterile) - Wound Care Supplies: Other - Hydrofera Blue Size: 4x5 - Days Supply:: 30 - Debridement Performed:: Yes - Wound Drainage:: Moderate - Face to face evaluation was performed on: 08/12/2024 Inactive Orders Date Order Priority Status Authorizing Provider 08/26/24 1609 Debridement Venous Ulcer Left;Lower;Lateral Leg Routine Completed Ajit Mendez MD 08/12/24 1531 Debridement Venous Ulcer Left;Lower;Lateral Leg Routine Completed Ajit Mendez MD Wound Venous Ulcer 06/10/24 Leg Left;Medial (Active) Date First Assessed: 06/10/24 Primary Wound Type: Venous Ulcer Wound Approximate Age at First Assessment (Weeks): 884 weeks Hand Hygiene Completed: Yes Location: Leg Wound Location Orientation: Left;Medial Assessments 08/12/2024 2:38 PM 09/16/2024 1:51 PM Wound Image Wound Bed Tissue Assessment Epithelialization Epithelialization Yolanda-Wound Assessment -- Scarred;Yellow-brown (Hemosiderin staining) Wound Length (cm) 0 cm 0 cm Wound Width (cm) 0 cm 0 cm Wound Surface Area (cm^2) 0 cm^2 0 cm^2 Wound Depth (cm) 0 cm 0 cm Wound Volume (cm^3) 0 cm^3 0 cm^3 Drainage Amount None None Dressing Tubular stocking Tubular stocking Dressing Status Removed Removed State of Healing -- Epithelialized Wound Bed Epithelialization (%) 100 % -- Active Orders Date Order Priority Status Authorizing Provider 08/26/24 1608 Wound Care Supplies Routine Active Ajit Mendez MD - Wound Care Supplies: Gauze 4x4 (non sterile) (Paper tape, 4inch rd wrap) - Wound Care Supplies: Other - Wound Care Supplies: Hydrofera Blue - Hydrofera Blue Size: 4x5 - Debridement Performed:: Yes - Wound Drainage:: Moderate - Frequency of Dressing Change: daily - Face to face evaluation was performed on: 08/26/2024 08/12/24 1531 Wound Care Supplies Routine Active Ajit Mendez MD - Wound Care Supplies: Hydrofera Blue (paper tape, 4 rd wrap) - Wound Care Supplies: Normal saline for irrigation (sterile) - 500ml - Wound Care Supplies: Gauze 4x4 (non sterile) - Wound Care Supplies: Other - Hydrofera Blue Size: 4x5 - Days Supply:: 30 - Debridement Performed:: Yes - Wound Drainage:: Moderate - Face to face evaluation was performed on: 08/12/2024 Procedure Note: Debridement Venous Ulcer Right;Medial;Lower Leg Performed by: SHANNAN Sullivan Authorized by: SHANNAN Sullivan Associated wounds: Wound Venous Ulcer 06/10/24 Leg Right;Medial;Lower Consent: Consent obtained: Verbal Consent given by: Patient Risks discussed: Yes Time out: Immediately prior to the procedure a time out was called Debridement Details: Performed by: SHANNAN Type: surgical Level: subcutaneous tissue Pain control: Lidocaine 4% Severity of Tissue Pre Debridement: Fat layer exposed Severity of Tissue Post Debridement: Fat layer exposed Time taken: 09/16/2024 1:52 PM Length (cm): 2.4 Width (cm): 1.9 Depth (cm): 0.1 Area (cm^2): 4.56 Time taken: 09/16/2024 1:53 PM Length (cm): 2.4 Width (cm): 1.9 Depth (cm): 0.1 Percent Debrided (%): 100 Surface Area (cm^2): 4.56 Area Debrided (cm^2): 4.56 Volume (cm^3): 0.46 Tissue and other material debrided: dermis, epidermis, hypergranulation and subcutaneous tissue Devitalized tissue debrided: fibrin and slough Instrument: Curette Amount of bleeding: small Hemostasis obtained with: Silver nitrate Procedural pain: 0 Post-procedural pain: 0 Response to treatment: Procedure was tolerated well Debridement Venous Ulcer Left;Lower;Lateral Leg Performed by: SHANNAN Sullivan Authorized by: SHANNAN Sullivan Associated wounds: Wound Venous Ulcer 06/10/24 Leg Left;Lower;Lateral Consent: Consent obtained: Verbal Consent given by: Patient Risks discussed: Yes Time out: Immediately prior to the procedure a time out was called Debridement Details: Performed by: SHANNAN Type: surgical Level: subcutaneous tissue Pain control: Lidocaine 4% Severity of Tissue Pre Debridement: Fat layer exposed Severity of Tissue Post Debridement: Fat layer exposed Time taken: 09/16/2024 1:53 PM Length (cm): 10.4 Width (cm): 6.3 Depth (cm): 0.1 Area (cm^2): 65.52 Time taken: 09/16/2024 1:54 PM Length (cm): 10.4 Width (cm): 6.3 Depth (cm): 0.1 Percent Debrided (%): 100 Surface Area (cm^2): 65.52 Area Debrided (cm^2): 65.52 Volume (cm^3): 6.55 Tissue and other material debrided: dermis, epidermis, hypergranulation and subcutaneous tissue Devitalized tissue debrided: biofilm, fibrin and slough Instrument: Curette Amount of bleeding: small Hemostasis obtained with: Silver nitrate Procedural pain: 0 Post-procedural pain: 0 Response to treatment: Procedure was tolerated well PROVIDER ORDERS Patient Instructions PHYSICIAN ORDERS Go to ER if you are presenting with fever, chills, increased redness, pain, swelling, warmth aroundwound area and/or foul smelling odor. If you have any questions or concerns, please contact the [facility] at . Follow up(s)/ Referrals: Vascular: as scheduled Nursing Home: N/A Additional Orders: Increase protein in your diet to help promote wound healing Edema Control: (If your compression wrap(s) feel to tight, please elevate your leg(s) about heart level. If your wrap(s) are becoming painful and/or you loose sensation of toes/ are having toe discoloration (a change from your baseline), please remove / unwrap compression and notify [facility] at . ) Tubigrip to bilateral lower extremities. Apply first thing in the morning prior to getting out of bed, OK to remove at bedtime. Ensure tubigrip extends from just behind the toes to about 2 finger widths below the knee. Offloading: N/A Negative Pressure Wound Therapy: (If wound vac is off/non functioning for more than 2 hours, please remove vac dressing, apply a wetto dry dressing and notify your home care agency) N/A Cellular/Tissue Based Products: N/A Bathing / Showering / Hygiene: May shower with protection but DO NOT get wound dressing(s) wet. Protect dressing(s) with water repellant cover ( for example- large plastic bag or cast bag) and then may take shower. Non-wound Condition/ Other Skin Care: Moisturize skin daily, avoiding wound area Wound Location(s): Wound #1 (Right Medial Lower Leg): Cleanser: Cleanse with Normal Saline Periwound: Apply Zinc Oxide to yolanda wound Topical: N/A Primary dressing: Hydrofera Blue- cut to fit to wound bed (if classic type, moisten with saline andsqueeze out excess prior to apply to wound bed) Secondary dressing: Exudry Secure with: 4 conforming gauze roll , 1 paper tape Compression Therapy: Tubigrip E Dressing Change Frequency: Daily Wound #2 (Left Lateral Lower Leg): Cleanser: Cleanse with Normal Saline Periwound: Apply Zinc Oxide to yolanda wound Topical: N/A Primary dressing: Hydrofera Blue- cut to fit to wound bed (if classic type, moisten with saline andsqueeze out excess prior to apply to wound bed) Secondary dressing: Exudry Secure with: 4 conforming gauze roll , 1 paper tape Compression Therapy: Tubigrip E Dressing Change Frequency: Daily 09/16/2024 2:23 PM EST SHANNAN Hinson Disclaimer: Speech recognition software was utilized to dictate portions of this document. Errors in yarn hauler may be present. Please reach out to me if any questions. Cosigned by Ajit Mendez MD at 09/20/2024 8:13 AM EST * Patricia Pandey RN - 09/16/2024 1:45 PM EST Discharge Patient directed to check out at manager front and collect visit summary with wound care directions and book follow up as directed. Dressings applied: Wound #1 (Right Medial Lower Leg): Cleanser: Cleanse with Normal Saline Periwound: Apply Zinc Oxide to yolanda wound Primary dressing: Hydrofera Blue- cut to fit to wound bed Secondary dressing: Exudry Secure with: 4 conforming gauze roll , 1 paper tape Compression Therapy: Tubigrip E Wound #2 (Left Lateral Lower Leg): Cleanser: Cleanse with Normal Saline Periwound: Apply Zinc Oxide to yolanda wound Primary dressing: Hydrofera Blue- cut to fit to wound bed Secondary dressing: Exudry Secure with: 4 conforming gauze roll , 1 paper tape Compression Therapy: Tubigrip E Dressing technique was demonstrated and explained. Patient questions answered. Pt discharge from wound care center without issue or incidence. documented in this encounter Plan of Treatment Upcoming Encounters Date Type Department Care Team (Late st Contact Info) Description 10/07/2024 2:30 PM EST Clinical Support [facility] [address] [place] [phone] documented as of this encounter Goals Goal Patient Goal Type Associated Problems Recent Progress Patient-Stated? Author Decrease Wound Volume by X% by date (in notes) Care Plan Impaired Tissue On track( 025 2:23 PM EST) No Ashley Tidwell RN Patient and Caregiver Understand Wound Care Education Care Plan Impaired Tissue No Ashley Tidwell RN Wound volume breakdown reduced by X% by week 4 Care Plan Impaired Tissue No Ashley Tidwell RN Wound volume breakdown reduced by X% by week 8 Care Plan Impaired Tissue No Ashley Tidwell RN Wound volume breakdown reduced by X% by week 12 Care Plan Impaired Tissue No Ashley Tidwell RN Quit using tobacco (cigarettes, smokeless, etc) Care Plan Education needed on impact of smoking on wound No Ashley Tidwell RN Reduce tobacco use (cigarettes, smokeless, etc) Care Plan Education needed on impact of smoking on wound No Ashley Tidwell RN Decrease Wound Volume by X% by date (in notes) Care Plan Education needed on impact of smoking on wound No Ashley Tidwell RN Patient and Caregiver Understand Wound Care Education Care Plan Education needed related to ulceration/compr omised skin integrity. No Ashley Tidwell RN documented as of this encounter Procedures Procedure Name Priority Date/Time Associated Diagnosis Comments DEBRIDEMENT Routine 09/16/2024 1:45 PM EST Chronic venous hypertension (idiopathic) with ulcer of bilateral lower extremity (CMS/HCC) Non-pressure chronic ulcer of unspecified part of left lower leg with fat layer exposed (CMS/HCC) DEBRIDEMENT Routine 09/16/2024 1:45 PM EST Chronic venous hypertension (idiopathic) with ulcer of bilateral lower extremity (CMS/HCC) Non-pressure chronic ulcer of right ankle with fat layer exposed (CMS/HCC) documented in this encounter Results * Debridement Venous Ulcer Left;Lower;Lateral Leg (09/16/2024 1:45 PM EST) Narrative Ajit Mendez MD - 09/16/2024 1:45 PM EST SHANNAN Sullivan ? 09/16/2024 ??2:26 PM Debridement Venous Ulcer Left;Lower;Lateral Leg Performed by: SHANNAN Sullivan Authorized by: SHANNAN Sullivan ?? Associated wounds: Wound Venous Ulcer 06/10/24 Leg Left;Lower;Lateral Consent: ??Consent obtained: ??Verbal ??Consent given by: ??Patient ??Risks discussed: Yes ?? Time out: Immediately prior to the procedure a time out was called ?? Debridement Details: ??Performed by: ??PA ??Type: surgical ?Level: subcutaneous tissue ?Pain control: ??Lidocaine 4% ??Severity of Tissue Pre Debridement: ??Fat layer exposed ??Severity of Tissue Post Debridement: ??Fat layer exposed ??Time taken: ??09/16/2024 1:53 PM ??Length (cm): ??10.4 ??Width (cm): ??6.3 ??Depth (cm): ??0.1 ??Area (cm^2): ??65.52 ??Time taken: ??09/16/2024 1:54 PM ??Length (cm): ??10.4 ??Width (cm): ??6.3 ??Depth (cm): ??0.1 ??Percent Debrided (%): ??100 ??Surface Area (cm^2): ??65.52 ??Area Debrided (cm^2): ??65.52 ??Volume (cm^3): ??6.55 ??Tissue and other material debrided: dermis, epidermis, hypergranulation and subcutaneous tissue ?Devitalized tissue debrided: biofilm, fibrin and slough ?Instrument: ??Curette ??Amount of bleeding: small ?Hemostasis obtained with: ??Silver nitrate ??Procedural pain: ??0 ??Post-procedural pain: ??0 ??Response to treatment: ??Procedure was tolerated well us [facility] IN CLINIC/BEDSIDE ORDERABLE S Final Result * Debridement Venous Ulcer Right;Medial;Lower Leg (09/16/2024 1:45 PM EST) Narrative Ajit Mendez MD - 09/16/2024 1:45 PM EST SHANNAN Sullivan ? 09/16/2024 ??2:26 PM Debridement Venous Ulcer Right;Medial;Lower Leg Performed by: SHANNAN Sullivan Authorized by: SHANNAN Sullivan ?? Associated wounds: Wound Venous Ulcer 06/10/24 Leg Right;Medial;Lower Consent: ??Consent obtained: ??Verbal ??Consent given by: ??Patient ??Risks discussed: Yes ?? Time out: Immediately prior to the procedure a time out was called ?? Debridement Details: ??Performed by: ??PA ??Type: surgical ?Level: subcutaneous tissue ?Pain control: ??Lidocaine 4% ??Severity of Tissue Pre Debridement: ??Fat layer exposed ??Severity of Tissue Post Debridement: ??Fat layer exposed ??Time taken: ??09/16/2024 1:52 PM ??Length (cm): ??2.4 ??Width (cm): ??1.9 ??Depth (cm): ??0.1 ??Area (cm^2): ??4.56 ??Time taken: ??09/16/2024 1:53 PM ??Length (cm): ??2.4 ??Width (cm): ??1.9 ??Depth (cm): ??0.1 ??Percent Debrided (%): ??100 ??Surface Area (cm^2): ??4.56 ??Area Debrided (cm^2): ??4.56 ??Volume (cm^3): ??0.46 ??Tissue and other material debrided: dermis, epidermis, hypergranulation and subcutaneous tissue ?Devitalized tissue debrided: fibrin and slough ?Instrument: ??Curette ??Amount of bleeding: small ?Hemostasis obtained with: ??Silver nitrate ??Procedural pain: ??0 ??Post-procedural pain: ??0 ??Response to treatment: ??Procedure was tolerated well Meño CAMPBELL IN CLINIC/BEDSIDE ORDERABLE S Final Result documented in this encounter Visit Diagnoses Diagnosis Chronic venous hypertension (idiopathic) with ulcer of bilateral lower extremity (CMS/HCC)- Primary 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
--- OUTSIDE RECORDS SUMMARY | 2024-10-05 15:54 | XMS_ITS | Clinical Summary ---
Author Organization [facility] Address [address] [place] [phone] Phone Care Team Providers Care Examining Officer Name Role Phone Gage Geronimo MD Primary Care Provider Allergies Active Allergy Reactions Criticality Noted Date Comments Latex Itching 08/12/2024 Naproxen Anaphylaxis High 08/12/2024 Medications Eliquis 5 mg tablet Take 1 tablet (5 mg total) by mouth 2 (two) times a day. 07/20/2024 Active atorvastatin (LIPITOR) 20 mg tablet Take 1 tablet (20 mg total) by mouth. at bedtime. 03/23/2024 Active buprenorphine-n aloxone (SUBOXONE) 8-2 mg per SL film DISSOLVE 2 films UNDER THE TONGUE ONCE DAILY Active docusate sodium (COLACE) 100 mg capsule TAKE 2 CAPSULES BY MOUTH ONCE DAILY. hold FOR loose stools 03/23/2024 Active gabapentin (NEURONTIN) 800 mg tablet Take 2 tablets (1,600 mg total) by mouth 2 (two) times a day. Active lamoTRIgine (LaMICtal) 100 mg tablet 08/05/2024 Active lamoTRIgine (LaMICtal) 25 mg tablet TAKE ONE (1) TABLET BY MOUTH DAILY WITH 100MG TABLET 08/04/2024 Active nicotine polacrilex (NICORETTE) 4 mg gum chew 1 piece of gum as needed EVERY 1 TO 2 HOURS. MAX 24 DAILY. 07/20/2024 Active bisacodyL (DULCOLAX) 5 mg EC tablet Take 1 tablet (5 mg total) by mouth 1 (one) time each day if needed for constipation. Do not crush, chew, or split. Active Active Problems Problem Noted Date Diagnosed Date Chronic venous hypertension (idiopathic) with ulcer of bilateral lower extremity 08/12/2024 Non-pressure chronic ulcer o f right ankle with fat layer exposed 08/12/2024 Non-pressure chronic ulcer o f unspecified part of left lower leg with fat layer exposed 08/12/2024 Tobacco use 08/12/2024 care home (current) use of anticoagulants 2023 Encounters Date Type Department Care Team Description 09/16/2024 1:45 PM EST Office Visit 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); Non-pressure chronic ulcer of unspecified part of left lower leg with fat layer exposed (CMS/HCC) from Last 3 Months Surgical History Surgery Date Site/Laterality Comments OTHER SURGICAL HISTORY PROCEDURE: MA STAB PHLEBT VARICOSE VEINS 1 XTR 10-20 STAB INCS; COMMENT: Laser procedure OTHER SURGICAL HISTORY 09/14/15 PROCEDURE: COLONOSCOPY, REMOVE LESION; COMMENT: adenomas and hemorrhoids; repeat in 6 months using 48 hour 8 liter Colyte prep COLECTOMY 08/25/2016 - 08/24/2017 VEIN SURGERY 08/25/2023 - 08/24/2024 Medical History Medical History Date Comments Ulcer DX:Ulcer Drug abuse and dependence (CMS/HCC) DX:Drug abuse and dependence (HCC) Depression DX:Depression Anxiety DX:Anxiety Hepatitis C DX:Hepatitis C Spinal fracture DX:Spinal fractu re; COMMENT: Fall Seizure (CMS/HCC) DX:Seizure (HC C); COMMENT: Last 2004 - prior klonopin Varicose vein DX:Varicose vein Venous insufficiency DX:Venous i nsufficiency Chronic hepatitis C (CMS/HCC) 08/31/2013 DX :Chronic hepatitis C (HCC) Stasis ulcer of lower extrem ity (CMS/HCC) 08/31/2013 DX:Stasis ulcer of lower ext remity (HCC) Delayed wound healing Constipation Family History Relation Name Status Comments Brother Alive throat cancer Father pacemaker Maternal Grandfather [place] Maternal Grandmother Breast cancer Mother Alive breast cancer, throat cancer Paternal Grandfather [place] Paternal Grandmother Sister breast and thro at cancer Social History Tobacco Use Types Packs/Day Years Used Date Smoking Tobacco: Former Cigarettes 1 38 0 1975 - 06/2024 Smokeless Tobacco: Former Tobacco Cessation:Counseling Given: Not Answered Alcohol Use Standard Drinks/Week Comments No 0 (1 standard drink = 0.6 oz pur e alcohol) Sex and Gender Information Value Date Recorded Sex Assigned at Not on file Legal Sex Male 12:18 AM EST Gender Identity Not on file Sexual Orientation Not on file Obstetrics History Last Filed Vital Signs Vital Sign Reading Time Taken Comments Blood Pressure 110/66 09/16/2024 2:30 PM EST Pulse 67 09/16/2024 2:30 PM EST Temperature 36.8 ??C (98.2 ??F) 09/16/2024 2:30 PM ES T Respiratory Rate 18 09/16/2024 2:30 PM EST Oxygen Saturation 100% 09/16/2024 2:30 PM EST Inhaled Oxygen Concentration - - Weight - - Height - - Body Mass Index - - Plan of Treatment Upcoming Encounters Date Type Department Care Team (Late st Contact Info) Description 10/07/2024 2:30 PM EST Clinical Support [facility] [address] [place] [phone] Health Maintenance Due Date Last Done Comments Hepatitis A Vaccines (1 of 2 - Risk 2-dose series) 1982 Zoster Vaccines (1 of 2) 2013 Pneumococcal Vaccine: 50+ Years (2 of 2 - PCV) 06/01/2015 06/01/2014 Cholesterol Screening (Lipid Panel) 07/28/2022 Colorectal Cancer Screening: Colonoscopy 07/28/2022 Depression Screening 07/28/2022 HIV Screening 07/28/2022 Hepatitis C Screening 07/28/2022 Social Influencers of Health Screening 07/28/2022 Lung Cancer Screening (Low Dose CT) 12/03/2022 12/03/2021, 11/15/2020 Hepatitis B Vaccines (1 of 3 - Risk 3-dose series) 2023 RSV Immunization Patients 60+ Years Old (1 - Risk 60-74 years 1-dose series) 2023 COVID-19 Vaccine (4 - season) 2024 08/06/2021, 12/13/2020, 11/22/2020 DTaP,Tdap,and Td Vaccines (3 - Td or Tdap) 03/01/2025 09/01/2024, 12/03/2012 Pneumococcal Vaccine: Pediatrics (0 to 5 Years) and At-Risk Patients (6 to 64 Years) Aged Out 06/01/2014 No longer eligible based on patient's age to complete this topic Influenza Vaccine Completed 09/01/2024, , 05/31/2021, Additional history exists HIB Vaccines Aged Out No longer eligi ble based on patient's age to complete this topic HPV Vaccines Aged Out No longer eligi ble based on patient's age to complete this topic IPV Vaccines Aged Out No longer eligi ble based on patient's age to complete this topic MMR Vaccines Aged Out No longer eligi ble based on patient's age to complete this topic Meningococcal ACWY Vaccine Aged Out N o longer eligible based on patient's age to complete this topic Meningococcal B Vacine Aged Out No lo nger eligible based on patient's age to complete this topic RSV Immunization Patients Under 20 months Aged Out No longer eligible based on patient's age to complete this topic Varicella Vaccines Aged Out No longer eligible based on patient's age to complete this topic Goals Goal Patient Goal Type Associated Problems Recent Progress Patient-Stated? Author Decrease Wound Volume by X% by date (in notes) Care Plan Impaired Tissue On track( 025 2:23 PM EST) Angela Medeiros RN Patient and Caregiver Understand Wound Care Education Care Plan Impaired Tissue No Angela Tidwell RN Wound volume breakdown reduced by X% by week 4 Care Plan Impaired Tissue No Angela Tidwell RN Wound volume breakdown reduced by X% by week 8 Care Plan Impaired Tissue No Angela Tidwell RN Wound volume breakdown reduced by X% by week 12 Care Plan Impaired Tissue No Angela Tidwell RN Quit using tobacco (cigarettes, smokeless, etc) Care Plan Education needed on impact of smoking on wound No Angela Tidwell RN Reduce tobacco use (cigarettes, smokeless, etc) Care Plan Education needed on impact of smoking on wound No Angela Tidwell RN Decrease Wound Volume by X% by date (in notes) Care Plan Education needed on impact of smoking on wound No Angela Tidwell RN Patient and Caregiver Understand Wound Care Education Care Plan Education needed related to ulceration/compr omised skin integrity. 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) DEBRIDEMENT Routine 08/12/2024 2:15 PM EST Chronic venous hypertension (idiopathic) with ulcer of bilateral lower extremity (CMS/HCC) Non-pressure chronic ulcer of unspecified part of left lower leg with fat layer exposed (CMS/HCC) DEBRIDEMENT Routine 08/12/2024 2:15 PM EST Chronic venous hypertension (idiopathic) with ulcer of bilateral lower extremity (CMS/HCC) 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 08/26/2024 ??4:11 PM Debridement Venous Ulcer Left;Lower;Lateral Leg Performed by: Ajit Mendez MD Authorized by: Ajit Mendez MD ?? Associated wounds: Wound Venous Ulcer 06/10/24 Leg Left;Lower;Lateral Consent: ??Consent obtained: ??Verbal ??Consent given by: ??Patient ??Risks discussed: Yes ?? Time out: Immediately prior to the procedure a time out was called ?? Debridement Details: ??Performed by: ??Physician ??Type: surgical ?Level: subcutaneous tissue ?Pain control: ??Lidocaine 4% ??Pain control administration: topical anesthesia ?Severity of Tissue Pre Debridement: ??Fat layer exposed ??Severity of Tissue Post Debridement: ??Fat layer exposed ??Time taken: ??08/26/2024 1:55 PM ??Length (cm): ??10.6 ??Width (cm): ??6.8 ??Depth (cm): ??0.2 ??Area (cm^2): ??72.08 ??Time taken: ??08/26/2024 1:56 PM ??Length (cm): ??10.6 ??Width (cm): ??6.8 ??Depth (cm): ??0.2 ??Percent Debrided (%): ??50 ??Surface Area (cm^2): ??72.08 ??Area Debrided (cm^2): ??36.04 ??Volume (cm^3): ??14.42 ??Tissue and other material debrided: dermis, epidermis and subcutaneous tissue ?Devitalized tissue debrided: slough ?Instrument: ??Curette ??Amount of bleeding: small ?Hemostasis obtained with: ??Pressure ??Procedural pain: ??0 ??Post-procedural pain: ??0 ??Response to treatment: ??Procedure was tolerated well us Ajit Mendez MD IN CLINIC/BEDSIDE ORDERAB LES Final Result * Debridement Venous Ulcer Right;Medial;Lower Leg (08/26/2024 1:45 PM EST) Narrative Ajit Mendez MD - 08/26/2024 1:45 PM EST Ajit Mendez MD ? 08/26/2024 ??4:11 PM Debridement Venous Ulcer Right;Medial;Lower Leg Performed by: Ajit Mendez MD Authorized by: Ajit Mendez MD ?? Associated wounds: Wound Venous Ulcer 06/10/24 Leg Right;Medial;Lower Consent: ??Consent obtained: ??Verbal ??Consent given by: ??Patient ??Risks discussed: Yes ?? Time out: Immediately prior to the procedure a time out was called ?? Debridement Details: ??Performed by: ??Physician ??Type: surgical ?Level: subcutaneous tissue ?Pain control: ??Lidocaine 4% ??Pain control administration: topical anesthesia ?Severity of Tissue Pre Debridement: ??Fat layer exposed ??Severity of Tissue Post Debridement: ??Fat layer exposed ??Time taken: ??08/26/2024 1:58 PM ??Length (cm): ??3.3 ??Width (cm): ??2.4 ??Depth (cm): ??0.1 ??Area (cm^2): ??7.92 ??Time taken: ??08/26/2024 1:59 PM ??Length (cm): ??3.3 ??Width (cm): ??2.4 ??Depth (cm): ??0.1 ??Percent Debrided (%): ??100 ??Surface Area (cm^2): ??7.92 ??Area Debrided (cm^2): ??7.92 ??Volume (cm^3): ??0.79 ??Tissue and other material debrided: dermis, epidermis and subcutaneous tissue ?Devitalized tissue debrided: slough ?Instrument: ??Curette ??Amount of bleeding: small ?Hemostasis obtained with: ??Pressure ??Procedural pain: ??0 ??Post-procedural pain: ??0 ??Response to treatment: ??Procedure was tolerated well us Ajit Mendez MD IN CLINIC/BEDSIDE ORDERAB LES Final Result * Debridement Venous Ulcer Left;Lower;Lateral Leg (08/12/2024 2:15 PM EST) Narrative Ajit Mendez MD - 08/12/2024 2:15 PM EST Ajit Mendez MD ? 08/12/2024 ??5:02 PM Debridement Venous Ulcer Left;Lower;Lateral Leg Performed by: Ajit Mendez MD Authorized by: Ajit Mendez MD ?? Associated wounds: Wound Venous Ulcer 06/10/24 Leg Left;Lower;Lateral Consent: ??Consent obtained: ??Verbal ??Consent given by: ??Patient ??Risks discussed: Yes ?? Time out: Immediately prior to the procedure a time out was called ?? Debridement Details: ??Performed by: ??Physician ??Type: surgical ?Level: subcutaneous tissue ?Pain control: ??Lidocaine 4% ??Pain control administration: topical anesthesia ?Severity of Tissue Pre Debridement: ??Fat layer exposed ??Severity of Tissue Post Debridement: ??Fat layer exposed ??Time taken: ??08/12/2024 2:38 PM ??Length (cm): ??11 ??Width (cm): ??6.7 ??Depth (cm): ??0.2 ??Area (cm^2): ??73.7 ??Time taken: ??08/12/2024 2:39 PM ??Length (cm): ??11 ??Width (cm): ??6.7 ??Depth (cm): ??0.2 ??Percent Debrided (%): ??50 ??Surface Area (cm^2): ??73.7 ??Area Debrided (cm^2): ??36.85 ??Volume (cm^3): ??14.74 ??Tissue and other material debrided: dermis, epidermis and subcutaneous tissue ?Devitalized tissue debrided: biofilm and slough ?Instrument: ??Curette ??Amount of bleeding: small ?Hemostasis obtained with: ??Pressure ??Procedural pain: ??0 ??Post-procedural pain: ??0 ??Response to treatment: ??Procedure was tolerated well us Ajit Mendez MD IN CLINIC/BEDSIDE ORDERAB LES Final Result * Debridement Venous Ulcer Right;Medial;Lower Leg (08/12/2024 2:15 PM EST) Narrative Ajit Mendez MD - 08/12/2024 2:15 PM EST Ajit Mendez MD ? 08/12/2024 ??5:02 PM Debridement Venous Ulcer Right;Medial;Lower Leg Performed by: Ajit Mendez MD Authorized by: Ajit Mendez MD ?? Associated wounds: Wound Venous Ulcer 06/10/24 Leg Right;Medial;Lower Consent: ??Consent obtained: ??Verbal ??Consent given by: ??Patient ??Risks discussed: Yes ?? Time out: Immediately prior to the procedure a time out was called ?? Debridement Details: ??Performed by: ??Physician ??Type: surgical ?Level: subcutaneous tissue ?Pain control: ??Lidocaine 4% ??Pain control administration: topical anesthesia ?Severity of Tissue Pre Debridement: ??Fat layer exposed ??Severity of Tissue Post Debridement: ??Fat layer exposed ??Time taken: ??08/12/2024 2:37 PM ??Length (cm): ??3.5 ??Width (cm): ??2.4 ??Depth (cm): ??0.1 ??Area (cm^2): ??8.4 ??Time taken: ??08/12/2024 2:38 PM ??Length (cm): ??3.5 ??Width (cm): ??2.4 ??Depth (cm): ??0.1 ??Percent Debrided (%): ??100 ??Surface Area (cm^2): ??8.4 ??Area Debrided (cm^2): ??8.4 ??Volume (cm^3): ??0.84 ??Tissue and other material debrided: dermis, epidermis and subcutaneous tissue ?Devitalized tissue debrided: biofilm and slough ?Instrument: ??Curette ??Amount of bleeding: small ?Hemostasis obtained with: ??Pressure ??Procedural pain: ??0 ??Post-procedural pain: ??0 ??Response to treatment: ??Procedure was tolerated well us Ajit Mendez MD IN CLINIC/BEDSIDE ORDERAB LES Final Result * CT LUNG SCREENING LOW DOSE (12/03/2021 3:50 PM EDT) Anatomical Region Laterality Modality Computed Tomogra phy 11/30/2021 3:02 PM EDT Narrative 12/03/2021 3:50 PM EDT [facility] Diagnostic Imaging Department [address] [place] [id number] Patient: ??KJ KOO ?/Age/Sex: 1965 - 56 - M Unit#: ??[id number] ? Location/Status: ??SPDICATLS/REG CLI ? Mnemonic/Ordering Site: ??CTLUNGLD/SPCT Ordering Physician: ??CORONA GOLDSTEIN MD CT Lung Screening Low Dose - 11/30/21 - 1508 Indication: 43 pack-year smoking history (1pack/day for 43 years), active smoker Technique: Low-dose CT scan of the chest obtained as a lung cancer screening study. Multiplanar reformatted images were obtained. Scanner: Lieferheld Dose reduction technique: ASIR (Adaptive statistical iterative reconstruction) and/or AEC (automated exposure control) Dose: total exam DLP 186.69 mGy-cm COMPARISON: CT 11/15/2020. FINDINGS: Chest wall: No focal abnormality is noted. ??Bilateral gynecomastia. Lower neck: The visualized portions of the thyroid gland are unremarkable. No lower cervical lymphadenopathy is identified. Lymph nodes: No axillary or mediastinal lymphadenopathy is identified. The assessment of hilar lymphadenopathy is difficult without the use of IV contrast. Mediastinum: No mediastinal mass is noted. The heart size is within normal limits. No pericardial effusion. No aneurysmal dilatation of the thoracic aorta is seen. There is atherosclerotic calcification of the thoracic aorta. Lungs/airways: Mild emphysematous disease. ??Similar-appearing subpleural 7 mm lobulated left upper lobe noncalcified nodule (series 2 image 46). ??Additional 3 mm noncalcified nodule in the left upper lobe is unchanged (image 53). ??No new suspicious pulmonary nodule. The trachea and central bronchi are widely patent. No focal confluent infiltrates are seen. No pleural effusion or pneumothorax. Upper abdomen: ??The visualized portions of the upper abdomen are otherwise grossly unremarkable on these noncontrast images. Osseous structures: No suspicious osseous lesions are identified. There are degenerative changes of the thoracic spine. ??Healed posterior lateral left rib fractures. Impression: No significant change compared to prior study without development of suspicious pulmonary nodule. Lung RADS 2, recommend low-dose screening chest CT in 12 months. Code: G0297, G9637, G9557, G9551 Dictating Physician: ??JOSE GUADALUPE DIALLO MD Electronically Signed by: ??JOSE GUADALUPE DIALLO MD Dic Date/Time: ??11/30/21 1816 Sign date/Time: ??12/03/21 1550 Procedure Note Jose Guadalupe Diallo MD - 08/14/2022 [facility] Diagnostic Imaging Department [address] [place] [address] Patient: KJ KOO./Age/Sex: 1965 - 56 - M Unit#: [id number] Location/Status: [facility] CLI Mnemonic/Ordering Site: [facility] Ordering Physician: CORONA GOLDSTEIN MD CT Lung Screening Low Dose - 11/30/21 - 1508 Indication: 43 pack-year smoking history (1pack/day for 43 years), activesmoker Technique: Low-dose CT scan of the chest obtained as a lung cancerscreening study. Multiplanar reformatted images were obtained. Scanner: Lieferheld Dose reduction technique: ASIR (Adaptive statistical iterativereconstruction) and/or AEC (automated exposure control) Dose: total exam DLP 186.69 mGy-cm COMPARISON: CT 11/15/2020. FINDINGS: Chest wall: No focal abnormality is noted. Bilateral gynecomastia. Lower neck: The visualized portions of the thyroid gland are unremarkable.No lower cervical lymphadenopathy is identified. Lymph nodes: No axillary or mediastinal lymphadenopathy is identified.The assessment of hilar lymphadenopathy is difficult without the use of IVcontrast. Mediastinum: No mediastinal mass is noted. The heart size is withinnormal limits. No pericardial effusion. No aneurysmal dilatation of the thoracicaorta is seen. There is atherosclerotic calcification of the thoracic aorta. Lungs/airways: Mild emphysematous disease. Similar-appearing subpleural 7mm lobulated left upper lobe noncalcified nodule (series 2 image 46).Additional 3 mm noncalcified nodule in the left upper lobe is unchanged (image 53). Nonew suspicious pulmonary nodule. The trachea and central bronchi are widelypatent. No focal confluent infiltrates are seen. No pleural effusion orpneumothorax. Upper abdomen: The visualized portions of the upper abdomen areotherwise grossly unremarkable on these noncontrast images. Osseous structures: No suspicious osseous lesions are identified. Thereare degenerative changes of the thoracic spine. Healed posterior lateral leftrib fractures. Impression: No significant change compared to prior study without development ofsuspicious pulmonary nodule. Lung RADS 2, recommend low-dose screening chest CT in 12 months. Code: G0297, G9637, G9557, G9551 Dictating Physician: JOSE GUADALUPE DIALLO MD Electronically Signed by: JOSE GUADALUPE DIALLO MD Dic Date/Time: 11/30/21 1816 Sign date/Time: 12/03/21 1550 Corona Goldstein MD [facility] [place] PROCEDURES Final Result from Last 3 Months or Most Recently Relevant to Health Maintenance Additional Health Concerns Active Problems Noted Date Diagnosed Date Impaired Tissue 08/16/2024 Education needed on impact of smoking on wound 1 10/17/2023 Education needed related to ulceration/compromised skin integrity. 08/16/2024 Insurance [facility] MEDICA[facility] Care Teams Examining Officer Relationship Specialty Start Date End Date Gage Geronimo MD [address] [place] [phone] PCP - General Family Medicine 06/25/24
== END 2024-10-05 15:58 | disposition home or self-care (01) ==
PROVIDERS: PCP Nurse Practitioner Family; Visit Provider Surgery
DX: N64.4 Mastodynia (principal)
CPT/HCPCS: 99214

== ENCOUNTER → 2024-10-05 15:03 | Outpatient (BNVA) | payer OTHER, SELFPAY | PROVIDERS: PCP Nurse Practitioner Family; Visit Provider Surgery | DX: N64.4 Mastodynia (principal) | CPT/HCPCS: 99212 ==

== ENCOUNTER 2024-12-09 13:57 | Outpatient (REF) | payer OTHER, SELFPAY ==
--- NOTE | ~2024-12-09 | MM_ITS ---
EXAMINATION: MM DIAGNOSTIC DIGITAL BREAST TOMOSYNTHESIS, BILATERAL Left Limited ultrasound. CLINICAL INFORMATION: Left breast pain retroareolar region. COMPARISON: Mammography: Comparison is made with relevant prior exams. TECHNIQUE: Digital breast mammography with tomosynthesis is performed in both the craniocaudal and mediolateral oblique views along with computer-aided detection (CAD). FINDINGS: There is bilateral marked retroareolar gynecomastia. There are no significant masses, abnormal calcifications, or other abnormalities. Targeted color Doppler ultrasound scanning in the left breast area of patient's pain in the retroareolar region and from 10-3 o'clock demonstrates marked gynecomastia. There is no other sonographic abnormality. Results are provided to the patient at time of visit by the technologist. MM/MM tomosynthesis diagnostic BI IMPRESSION: Bilateral marked gynecomastia. Benign. Recommend clinical evaluation and follow-up. ASSESSMENT: BI-RADS BI-RADS 2 - Benign Findings RECOMMENDATION: Clinical evaluation and follow-up. Electronically signed by: Ashlyn Huffman DO 12/10/2024 08:59 AM EDT
--- OUTSIDE RECORDS SUMMARY | 2024-12-09 17:02 | XMS_ITS ---
Care Plan Created on: December 09, 2024 Kj Koo : 1965 Sex: Male Author Organization [facility] Address [address] [place] [address] Phone Care Team Providers Care Crozer Name Role Phone Gage Geronimo MD Primary Care Provider [phone] Active Problems Problem Noted Date Diagnosed Date Chronic venous hypertension (idiopathic) with ulcer of bilateral lower extremity (CODE) (CMS/[facility]ER[facility] V24, CMS/[facility] V28) 11/10/2024 Chronic venous hypertension (idiopathic) with ulcer of bilateral lower extremity (CMS/HCC V24, CMS/HCC V28) 08/12/2024 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 08/16/2024 Goals Goal Patient Goal Type Associated Problems Recent Progress Patient-Stated? Author Decrease Wound Volume by X% by date (in notes) Care Plan Impaired Tissue No change(2024 5:11 PM EDT) No Angela Tidwell, RN Patient and Caregiver Understand Wound Care Education Care Plan Impaired Tissue On track( 2:46 PM EDT) No Yaw, Angela, syruper volume breakdown reduced by X% by week [...] caregiver on proper wound care procedures 08/16/2024 Record wound depth 08/16/2024 Record total wound area 08/16/2024 Measure wound progress 08/16/2024 Related Goals and Interventions Goal Associated Intervent ions Decrease Wound Volume by X% by date (in notes) Give provider list of wound care supplie s; Refill wound care supplies; Send Wound Care Supplies; Provide caregiver with wound care procedure information; Educate caregiver on proper wound care procedures; Record wound depth; Record total wound area; [...]
--- OUTSIDE RECORDS SUMMARY | 2024-12-09 17:03 | XMS_ITS | Encounter Summary ---
Author Organization [facility] Address [address] [place] [address] Care Team Providers Care [employer] Name Role Phone Gage Geronimo MD Primary Care Provider [phone] Reason for Visit * Reason Comments Wound Care Encounter Details Date Type Department Care Team (Late st Contact Info) Description 12/07/2024 2:00 PM EDT Office Visit [facility] [address] [place] [id number] Meño Gayle PA [address] [place] [address] Chronic venous hypertension (idiopathic) with ulcer of bilateral lower extremity (CODE) ([facility] V24, CMS/[facility] V28) (Primary Dx); Non-pressure chronic ulcer of right ankle with fat layer exposed (CMS/HCC V24, CMS/HCC V28); Non-pressure chronic ulcer of other part of left lower leg with fat layer exposed (CMS/[facility] V24, CMS/HCC V28) Social History Tobacco Use Types Packs/Day Years [...] Sign Reading Time Taken Comments Blood Pressure 106/50 12/07/2024 2:26 PM EDT Pulse 58 12/07/2024 2:26 PM EDT Temperature 36.3 ??C (97.3 ??F) 12/07/2024 2:26 PM ED T Respiratory Rate 18 12/07/2024 2:26 PM EDT Oxygen Saturation 97% 12/07/2024 2:26 PM EDT Inhaled Oxygen Concentration - - Weight - - Height - - Body Mass Index - - documented in this encounter Progress Notes * Patricia Park RN - 12/07/2024 2:00 PM EDT PROVIDER ORDERS Go to ER if you are presenting with fever, chills, increased redness, pain, swelling, warmth aroundwound area and/or foul smelling odor. If you have any questions or concerns, please contact the [facility] at . Follow up(s)/ Referrals: Vascular: as scheduled Prison: N/A Additional Orders: Increase protein in your diet to help promote wound healing Edema Control: (If your compression wrap(s) feel to tight, please elevate your leg(s) about heart level. If your wrap(s) are becoming painful and/or you loose sensation of toes/ are having toe discoloration (a change from your baseline), please remove / unwrap compression and notify [facility] at . ) Tubigrip [...] , 1 paper tape Compression Therapy: Tubigrip D Dressing Change Frequency: Daily Wound #2 (Left [...] , 1 paper tape Compression Therapy: Tubigrip D Dressing Change Frequency: Daily * Patricia Park RN - 12/07/2024 2:00 PM EDTAddended by: PATRICIA PARK on: 12/07/2024 05:09 PM Modules accepted: Orders * SHANNAN Sullivan - 12/07/2024 2:00 PM EDTAssociated Order(s): Debridement Venous Ulcer Right;Medial;Lower Ankle; Debridement Venous Ulcer Lef t;Lateral;Lower Leg Post-Procedure Diagnose(s): Non-pressure chronic ulcer of right ankle with fat layer exposed (CMS/HCC V24, CMS/HCC V28); Non-pressure chronic ulcer of other part of left lower leg with fat layer exposed (CMS/HCC V24, CMS/HCC V28); Chronic venous hypertension (idiopathic) with ulcer of bilateral lower extremity (CODE) (CMS/HCC V24, CMS/HCC V28) Images from the original note were not included. [facility] [place] [place] [address] Office Visit Visit Date: 12/07/2024 Patient Name: Kj Koo Date of : 1965 PCP: Gage Geronimo MD HPI: Kj Koo is a 59 y.o. male who presents to the to the wound care center for follow up lower leg wounds. Patient has a longstanding history of hypertension hyperlipidemia chronic pain DVT currently on Eliquis. Patient has been using topical Hydrofera Blue dressings to the left lateral and right medial wound. Recently quit smoking. Patient has not been seen in a few weeks secondary to scheduling conflict. Patient denies fever chills. Assessment and Plan: Chronic venous hypertension (idiopathic) with ulcer of bilateral lower extremity (CODE) (CMS/HCC V24, CMS/HCC V28) (Primary) Non-pressure chronic ulcer of right ankle with fat layer exposed (CMS/HCC V24, CMS/HCC V28) Non-pressure chronic ulcer of other part of left lower leg with fat layer exposed (CMS/HCC V24, CMS/HCC V28) Patient to follow-up in 2 weeks. Will continue with Hydrofera Blue dressings topically to the both right and left leg. Left leg shows some areas of hypergranulation was aggressively debrided today. No obvious sign of wound infection at this time some new skin formation was also noted on wound edgesof the left lower leg. Right lower leg wound is measuring smaller at this time. Patient continues to avoid tobacco. All questions were answered to his satisfaction. He was counseled regarding my impressions, instructions for management, and the importance of compliance with treatment. Follow up in about 2 weeks (around 12/21/2024) for Follow up with . >>>>>>>>>>>>>>>>>>>>>>>>>>>>>>>>>>>>>>>>>>>>>>>>>>> Vital Signs: Visit Vitals BP 106/50 Pulse 58 Temp 36.3 ??C (97.3 ??F) (Temporal) Resp 18 Review of Systems: Review of Systems Constitutional: Negative for chills and fever. Skin: Positive for wound. All other systems reviewed and are negative. PHYSICAL EXAM Physical Exam Vitals and nursing note reviewed. Exam conducted with a rocket engine component mechanic present. Constitutional: Appearance: Normal appearance. HENT: Head: Normocephalic. Eyes: Extraocular Movements: Extraocular movements intact. Pulmonary: Effort: Pulmonary effort is normal. Musculoskeletal: General: Normal range of motion. Skin: General: Skin is warm and dry. Comments: See wound details in assessment and procedure note Right lower leg medial wound is noted. Peers to be measuring smaller fair amount of fibrin exudate externally of the wound. No external erythema induration concerning for cellulitis. Left lower leg wound lateral aspect fair amount of hypergranulation tissue is noted. Wound edges are intact. Fair amount of bioburden is also noted in the wound bed. No undermining of the wound edges. Periwound is intact. Neurological: General: No focal deficit present. Mental Status: He is alert and oriented to person, place, and time. Psychiatric: Mood and Affect: Mood normal. WOUND ASSESSMENT If photograph of wound not visible on this note, please check under Media tab. Wound Venous Ulcer 06/10/24 Ankle Right;Medial;Lower (Active) Date First Assessed: 06/10/24 Primary Wound Type: Venous Ulcer Wound Approximate Age at First Assessment (Weeks): 884 weeks Hand Hygiene Completed: Yes Location: Ankle Wound Location Orientation: Right;Medial;Lower Assessments 08/12/2024 2:37 PM 12/07/2024 2:31 PM Wound Image Wound Bed Tissue Assessment Granulation;Sloughing Granulation;Sloughing Yolanda-Wound Assessment Scarred;Yellow-brown (Hemosiderin staining) Scarred;Dry;Yellow-brown (Hemosiderin staining) Wound Length (cm) 3.5 cm 0.6 cm Wound Width (cm) 2.4 cm 0.5 cm Wound Surface Area (cm^2) 8.4 cm^2 0.3 cm^2 Wound Depth (cm) 0.1 cm 0.2 cm Wound Volume (cm^3) 0.84 cm^3 0.06 cm^3 Wound Healing % -- 93 Drainage Description Serosanguineous Serosanguineous Drainage Amount Moderate Moderate Treatments Cleansed;Other (Comment) Cleansed;Other (Comment) Dressing Tubular stocking Tubular stocking Dressing Status Removed Removed Wound Bed Granulation (%) 40 % 40 % Wound Bed Slough (%) 60 % 60 % Wound Bed Eschar (%) 0 % 0 % Tunneling 0 cm 0 cm Undermining 0 cm 0 cm Edges Well-defined edges;Attached edges Well-defined edges;Attached edges Non-staged Wound Description Full thickness Full thickness Active Orders Date Order Priority Status Authorizing Provider 11/10/24 1420 Wound Care Supplies Routine Active SHANNAN Sullivan - Wound Care Supplies: Hydrofera Blue Ready - Hydrofera Blue Ready Size: 4x5 - Days Supply:: 30 - Debridement Performed:: Yes - Wound Drainage:: Moderate - Dispense As Written (TIFFANIE)?: Yes - Frequency of Dressing Change: every other day - Face to face evaluation was performed on: 11/10/2024 - Additional providers who completed a face to face evaluation of the patient:: MEÑO GAYLE 09/16/24 1431 Wound Care Supplies Routine Active SHANNAN Sullivan - Wound Care Supplies: Hydrofera Blue (Exudry 4 x6 , ancillary kit) - Wound Care Supplies: Other - Wound Care Supplies: Medipore tape - Hydrofera Blue Size: 4x5 - Days Supply:: 30 - Debridement Performed:: Yes - Wound Drainage:: Moderate - Face to face evaluation was performed on: 09/16/2024 08/26/24 1608 Wound Care Supplies Routine Active [...] Orders Date Order Priority Status Authorizing Provider 11/10/24 1425 Debridement Venous Ulcer Right;Medial;Lower Leg Routine Completed SHANNAN Sullivan 09/16/24 1421 Debridement Venous Ulcer Right;Medial;Lower Leg Routine Completed SHANNAN Sullivan 08/26/24 1608 Debridement Venous Ulcer Right;Medial;Lower Leg Routine Completed Ajit Mendez MD 08/12/24 1522 Debridement Venous Ulcer Right;Medial;Lower Leg Routine Completed Ajit Mendez MD Wound Venous Ulcer 06/10/24 Leg Left;Lateral;Lower (Active) Date First Assessed: 06/10/24 Primary Wound Type: Venous Ulcer Wound Approximate Age at First Assessment (Weeks): 884 weeks Hand Hygiene Completed: Yes Location: Leg Wound Location Orientation: Left;Lateral;Lower Assessments 08/12/2024 2:38 PM 12/07/2024 2:31 PM Wound Image Wound Bed Tissue Assessment Granulation;Sloughing Granulation;Sloughing Yolanda-Wound Assessment Scarred;Yellow-brown (Hemosiderin staining) Yellow-brown (Hemosiderin staining);Scarred;Dry Wound Length (cm) 11 cm 8.5 cm Wound Width (cm) 6.7 cm 5 cm Wound Surface Area (cm^2) 73.7 cm^2 42.5 cm^2 Wound Depth (cm) 0.2 cm 0.1 cm Wound Volume (cm^3) 14.74 cm^3 4.25 cm^3 Wound Healing % -- 71 Drainage Description Serosanguineous Serosanguineous Drainage Amount Moderate Large Treatments Cleansed;Other (Comment) Cleansed;Other (Comment) Dressing Tubular stocking Tubular stocking Dressing Status Removed Removed Wound Bed Granulation (%) 100 % 40 % Wound Bed Slough (%) 0 % 60 % Wound Bed Eschar (%) 0 % 0 % Tunneling 0 cm 0 cm Undermining 0 cm 0 cm Edges Attached edges;Well-defined edges Well-defined edges;Attached edges Non-staged Wound Description Full thickness Full thickness Active Orders Date Order Priority Status Authorizing Provider 11/10/24 1420 Wound Care Supplies Routine Active SHANNAN Sullivan - Wound Care Supplies: Hydrofera Blue Ready - Hydrofera Blue Ready Size: 4x5 - Days Supply:: 30 - Debridement Performed:: Yes - Wound Drainage:: Moderate - Dispense As Written (TIFFANIE)?: Yes - Frequency of Dressing Change: every other day - Face to face evaluation was performed on: 11/10/2024 - Additional providers who completed a face to face evaluation of the patient:: MEÑO GAYLE 09/16/24 1431 Wound Care Supplies Routine Active SHANNAN Sullivan - Wound Care Supplies: Hydrofera Blue (Exudry 4 x6 , ancillary kit) - Wound Care Supplies: Other - Wound Care Supplies: Medipore tape - Hydrofera Blue Size: 4x5 - Days Supply:: 30 - Debridement Performed:: Yes - Wound Drainage:: Moderate - Face to face evaluation was performed on: 09/16/2024 08/26/24 1608 Wound Care Supplies Routine Active Aijt eMndez MD - Wound Care Supplies: Gauze 4x4 [...] Orders Date Order Priority Status Authorizing Provider 11/10/24 1425 Debridement Venous Ulcer Left;Lower;Lateral Leg Routine Completed SHANNAN Sullivan 09/16/24 1422 Debridement Venous Ulcer Left;Lower;Lateral Leg Routine Completed SHANNAN Sullivan 08/26/24 1609 Debridement Venous Ulcer Left;Lower;Lateral Leg Routine Completed Ajit Mendez MD 08/12/24 1531 Debridement Venous Ulcer Left;Lower;Lateral Leg Routine Completed Ajit Mendez MD Pertinent Labs: No results found for: ALB , WBC , PREALBUMIN , HEMOGLOBIN A1C , POCT GLUCOSE Procedure Note: Debridement Venous Ulcer Right;Medial;Lower Ankle Performed by: SHANNAN Sullivan Authorized by: SHANNAN Sullivan Associated wounds: Wound Venous Ulcer 06/10/24 Ankle Right;Medial;Lower Consent: Consent obtained: Verbal Consent given by: Patient Risks discussed: Yes Time out: Immediately prior to the procedure a time out was called Debridement Details: Performed by: SHANNAN Type: surgical Level: subcutaneous tissue Pain control: Lidocaine 4% Severity of Tissue Pre Debridement: Fat layer exposed Severity of Tissue Post Debridement: Fat layer exposed Time taken: 12/07/2024 2:31 PM Length (cm): 0.6 Width (cm): 0.5 Depth (cm): 0.2 Area (cm^2): 0.3 Time taken: 12/07/2024 2:32 PM Length (cm): 0.6 Width (cm): 0.5 Depth (cm): 0.2 Percent Debrided (%): 100 Surface Area (cm^2): 0.3 Area Debrided (cm^2): 0.3 Volume (cm^3): 0.06 Tissue and other material debrided: dermis, epidermis and subcutaneous tissue Devitalized tissue debrided: biofilm, exudate, fibrin and slough Instrument: Curette Amount of bleeding: none Hemostasis obtained with: Not applicable Procedural pain: 0 Post-procedural pain: 0 Response to treatment: Procedure was tolerated well Debridement Venous Ulcer Left;Lateral;Lower Leg Performed by: SHANNAN Sullivan Authorized by: SHANNAN Sullivan Associated wounds: Wound Venous Ulcer 06/10/24 Leg Left;Lateral;Lower Consent: Consent obtained: Verbal Consent given by: Patient Risks discussed: Yes Time out: Immediately prior to the procedure a time out was called Debridement Details: Performed by: SHANNAN Type: surgical Level: subcutaneous tissue Pain control: Lidocaine 4% Severity of Tissue Pre Debridement: Fat layer exposed Severity of Tissue Post Debridement: Fat layer exposed Time taken: 12/07/2024 2:31 PM Length (cm): 8.5 Width (cm): 5 Depth (cm): 0.1 Area (cm^2): 42.5 Time taken: 12/07/2024 2:32 PM Length (cm): 8.5 Width (cm): 5 Depth (cm): 0.1 Percent Debrided (%): 100 Surface Area (cm^2): 42.5 Area Debrided (cm^2): 42.5 Volume (cm^3): 4.25 Tissue and other material debrided: dermis, epidermis, hypergranulation and subcutaneous tissue Devitalized tissue debrided: biofilm, exudate, fibrin and slough Instrument: Curette Amount of bleeding: none Hemostasis obtained with: Not applicable Procedural pain: 0 Post-procedural pain: 0 Response to treatment: Procedure was tolerated well PROVIDER ORDERS Patient Instructions PROVIDER ORDERS Go to ER if you are presenting with fever, chills, increased redness, pain, swelling, warmth aroundwound area and/or foul smelling odor. If you have any questions or concerns, please contact the [facility] at . Follow up(s)/ Referrals: Vascular: as scheduled Prison: N/A Additional Orders: Increase protein in your diet to help promote wound healing Edema Control: (If your compression wrap(s) feel to tight, please elevate your leg(s) about heart level. If your wrap(s) are becoming painful and/or you loose sensation of toes/ are having toe discoloration (a change from your baseline), please remove / unwrap compression and notify [facility] at . ) Tubigrip to bilateral [...] , 1 paper tape Compression Therapy: Tubigrip D Dressing Change Frequency: Daily Wound #2 (Left [...] , 1 paper tape Compression Therapy: Tubigrip D Dressing Change Frequency: Daily 12/07/2024 2:47 PM EDT SHANNAN Hinson Cosigned by Ajit Mendez MD at 12/09/2024 10:03 AM EDT * Angela Tidwell RN - 12/07/2024 2:00 PM EDT Discharge Patient directed to check out at [facility] front press[facility] and collect visit summary with wound care [...] , 1 paper tape Compression Therapy: Tubigrip D Wound #2 (Left Lateral Lower Leg): Cleanser: Cleanse with Normal Saline Periwound: Apply Zinc Oxide to yolanda wound Primary dressing: Hydrofera Blue- cut to fit to wound bed (if classic type, moisten with saline andsqueeze out excess prior to apply to wound bed) Secondary dressing: Exudry Secure with: 4 conforming gauze roll , 1 paper tape Compression Therapy: Tubigrip D Dressing technique was demonstrated and explained. Patient questions answered. Pt discharge from wound care center without issue or incidence. documented in this encounter Plan of Treatment Upcoming Encounters Date Type Department Care Team (Late st Contact Info) Description 12/24/2024 2:00 PM EDT Clinical Support [facility] [address] [place] [address] documented as of this encounter Goals Goal Patient Goal Type Associated Problems Recent Progress Patient-Stated? Author Decrease Wound Volume by X% by date (in notes) Care Plan Impaired Tissue No change(2024 5:11 PM EDT) Angela Medeiros RN Patient and Caregiver Understand Wound Care Education Care Plan Impaired Tissue On track( 2:46 PM EDT) Angela Medeiros RN Wound volume breakdown reduced by X% [...] omised skin integrity. No Angela Tidwell RN documented as of this encounter Procedures Procedure Name Priority Date/Time Associated Diagnosis Comments DEBRIDEMENT Routine 12/07/2024 2:00 PM EDT Chronic venous hypertension (idiopathic) with ulcer of bilateral lower extremity (CODE) (CMS/HCC V24, CMS/HCC V28) Non-pressure chronic ulcer of other part of left lower leg with fat layer exposed (CMS/HCC V24, CMS/HCC V28) DEBRIDEMENT Routine 12/07/2024 2:00 PM EDT Chronic venous hypertension (idiopathic) with ulcer of bilateral lower extremity (CODE) (CMS/HCC V24, CMS/HCC V28) Non-pressure chronic ulcer of right ankle with fat layer exposed (CMS/HCC V24, CMS/HCC V28) documented in this encounter Results * Debridement Venous Ulcer Left;Lateral;Lower Leg (12/07/2024 2:00 PM EDT) Narrative Ajit Mendez MD - 12/07/2024 2:00 PM EDT SHANNAN Sullivan ? 12/07/2024 ??2:51 PM Debridement Venous Ulcer Left;Lateral;Lower Leg Performed by: SHANNAN Sullivna Authorized by: SHANNAN Sullivan ??Associated wounds: Wound Venous Ulcer 06/10/24 Leg Left;Lateral;Lower Consent: ??Consent obtained: ??Verbal ??Consent given by: ??Patient ??Risks discussed: Yes ?? Time out: Immediately prior to the procedure a time out was called ?? Debridement Details: ??Performed by: ??PA ??Type: surgical ?Level: subcutaneous tissue ?Pain control: ??Lidocaine 4% ??Severity of Tissue Pre Debridement: ??Fat layer exposed ??Severity of Tissue Post Debridement: ??Fat layer exposed ??Time taken: ??12/07/2024 2:31 PM ??Length (cm): ??8.5 ??Width (cm): ??5 ??Depth (cm): ??0.1 ??Area (cm^2): ??42.5 ??Time taken: ??12/07/2024 2:32 PM ??Length (cm): ??8.5 ??Width (cm): ??5 ??Depth (cm): ??0.1 ??Percent Debrided (%): ??100 ??Surface Area (cm^2): ??42.5 ??Area Debrided (cm^2): ??42.5 ??Volume (cm^3): ??4.25 ??Tissue and other material debrided: dermis, epidermis, hypergranulation and subcutaneous tissue ?Devitalized tissue debrided: biofilm, exudate, fibrin and slough ?Instrument: ??Curette ??Amount of bleeding: none ?Hemostasis obtained with: ??Not applicable ??Procedural pain: ??0 ??Post-procedural pain: ??0 ??Response to treatment: ??Procedure was tolerated well us Meño CAMPBELL IN CLINIC/BEDSIDE ORDERABLE S Final Result * Debridement Venous Ulcer Right;Medial;Lower Ankle (12/07/2024 2:00 PM EDT) Ajit Houston MD - 12/07/2024 2:00 PM EDT SHANNAN Sullivan ? 12/07/2024 ??2:51 PM Debridement Venous Ulcer Right;Medial;Lower Ankle Performed by: SHANNAN Sullivan Authorized by: SHANNAN Sullivan ??Associated wounds: Wound Venous Ulcer 06/10/24 Ankle Right;Medial;Lower Consent: ??Consent obtained: ??Verbal ??Consent given by: ??Patient ??Risks discussed: Yes ?? Time out: Immediately prior to the procedure a time out was called ?? Debridement Details: ??Performed by: ??PA ??Type: surgical ?Level: subcutaneous tissue ?Pain control: ??Lidocaine 4% ??Severity of Tissue Pre Debridement: ??Fat layer exposed ??Severity of Tissue Post Debridement: ??Fat layer exposed ??Time taken: ??12/07/2024 2:31 PM ??Length (cm): ??0.6 ??Width (cm): ??0.5 ??Depth (cm): ??0.2 ??Area (cm^2): ??0.3 ??Time taken: ??12/07/2024 2:32 PM ??Length (cm): ??0.6 ??Width (cm): ??0.5 ??Depth (cm): ??0.2 ??Percent Debrided (%): ??100 ??Surface Area (cm^2): ??0.3 ??Area Debrided (cm^2): ??0.3 ??Volume (cm^3): ??0.06 ??Tissue and other material debrided: dermis, epidermis and subcutaneous tissue ?Devitalized tissue debrided: biofilm, exudate, fibrin and slough ?Instrument: ??Curette ??Amount of bleeding: none ?Hemostasis obtained with: ??Not applicable ??Procedural pain: ??0 ??Post-procedural pain: ??0 ??Response to treatment: ??Procedure was tolerated well us Meño [facility] IN CLINIC/BEDSIDE ORDERABLE S Final Result documented in this encounter Visit Diagnoses Diagnosis Chronic venous hypertension (idiopathic) with ulcer of bilateral lower extremity (CODE) ([facility] V24, CMS/[facility] V28)- Primary Non-pressure chronic ulcer of right ankle with fat layer exposed (CMS/[facility] V24, CMS/[facility] V28) Non-pressure chronic ulcer of other part of left lower leg with fat layer exposed (CMS/[facility] V24, CMS/[facility] V28) documented in this encounter Orders General Supply Count Last Ordered Date First Or dered Date WOUND CARE SUPPLIES 1 12/07/2024 documented in this encounter Additional Health Concerns Active Problems Noted Date Diagnosed Date Impaired Tissue 08/16/2024 Education needed on impact of smoking on wound 1 10/17/2023 Education needed related to ulceration/compromised skin integrity. 08/16/2024 documented as of this encounter Care Teams [employer] Relationship Specialty Start Date End Date Gage Geronimo MD [address] [place] [address] PCP - General Family Medicine 06/25/24 documented as of this encounter
--- OUTSIDE RECORDS SUMMARY | 2024-12-09 17:03 | XMS_ITS | Clinical Summary ---
Author Organization [facility] Address [address] [place] [address] Phone Care Team Providers [employer] Name Role Phone Gage Geronimo MD Primary Care Provider Allergies Active Allergy Reactions Criticality Noted Date Comments Latex Itching 08/12/2024 Naproxen Anaphylaxis High 08/12/2024 Medications Eliquis 5 mg tablet Take 1 tablet (5 mg total) by mouth 2 (two) times a day. 4 Active atorvastatin (LIPITOR) 20 mg tablet Take 1 tablet (20 mg total) by mouth. at bedtime. 4 Active buprenorphine-nal oxone (SUBOXONE) 8-2 mg per SL film DISSOLVE 2 films UNDER THE TONGUE ONCE DAILY Active docusate sodium (COLACE) 100 mg capsule TAKE 2 CAPSULES BY MOUTH ONCE DAILY. hold FOR loose stools 4 Active gabapentin (NEURONTIN) 800 mg tablet Take 2 tablets (1,600 mg total) by mouth 2 (two) times a day. Active lamoTRIgine (LaMICtal) 100 mg tablet 4 Active lamoTRIgine (LaMICtal) 25 mg tablet TAKE ONE (1) TABLET BY MOUTH DAILY WITH 100MG TABLET 4 Active bisacodyL (DULCOLAX) 5 mg EC tablet Take 1 tablet (5 mg total) by mouth 1 (one) time each day if needed for constipation. Do not crush, chew, or split. Active nicotine polacrilex (NICORETTE) 4 mg gumIndications:Ci nnamon flavor Place 1 each (4 mg total) into mouth between cheek and gum every 6 (six) hours if needed for smoking cessation. 100 each Active zinc oxide 20 % ointmentIndicatio ns:Chronic venous hypertension (idiopathic) with ulcer of bilateral lower extremity (CODE) ([facility] V24, [facility] V28),Non-pressure chronic ulcer of right ankle with fat layer exposed ([facility] V24, [facility] V28),Non-pressure chronic ulcer of other part of left lower leg with fat layer exposed ([facility] V24, [facility] V28) Apply topically every other day. With dressing changes, apply to the periwound 56.7 g 2 5 12/11/19 25 Active Active Problems Problem Noted Date Diagnosed Date Chronic venous hypertension (idiopathic) with ulcer of bilateral lower extremity (CODE) ([facility] V24, [facility] V28) 11/10/2024 Chronic venous hypertension (idiopathic) with ulcer of bilateral lower extremity ([facility] V24, [facility] V28) 08/12/2024 Non-pressure chronic ulcer o f right ankle with fat layer exposed ([facility] V24, [facility] V28) 08/12/2024 Non-pressure chronic ulcer o f unspecified part of left lower leg with fat layer exposed ([facility] V24, [facility] V28) 08/12/2024 Tobacco use 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 2023 Encounters Date Type Department Care Team Description 12/07/2024 2:00 PM EDT Office Visit [facility] [address] [place] [phone] Meño Gayle PA Chronic venous hypertension (idiopathic) with ulcer of bilateral lower extremity (CODE) ([facility] V24, [facility] V28) (Primary Dx); Non-pressure chronic ulcer of right ankle with fat layer exposed ([facility] V24, [facility] V28); Non-pressure chronic ulcer of other part of left lower leg with fat layer exposed ([facility] V24, [facility] V28) 11/10/2024 1:45 PM EDT Office Visit [facility] [address] [place] [phone] Meño Gayle PA Chronic venous hypertension (idiopathic) with ulcer of bilateral lower extremity (CODE) (CMS/HCC V24, CMS/HCC V28) (Primary Dx); Non-pressure chronic ulcer of right ankle with fat layer exposed (CMS/HCC V24, CMS/HCC V28); Non-pressure chronic ulcer of other part of left lower leg with fat layer exposed (CMS/HCC V24, CMS/HCC V28) 09/16/2024 1:45 PM EST Office Visit [facility] [address] [place] [phone] Meño Gayle PA Chronic venous hypertension (idiopathic) with ulcer of bilateral lower extremity (CMS/HCC V24, CMS/HCC V28) (Primary Dx); Non-pressure chronic ulcer of right ankle with fat layer exposed (CMS/HCC V24, CMS/HCC V28); Non-pressure chronic ulcer of unspecified part of left lower leg with fat layer exposed (CMS/HCC V24, CMS/HCC V28) from Last 3 Months Surgical History Surgery Date Site/Laterality Comments OTHER SURGICAL HISTORY PROCEDURE: HI STAB PHLEBT VARICOSE VEINS 1 XTR 10-20 STAB INCS; COMMENT: Laser procedure OTHER SURGICAL HISTORY 09/14/15 PROCEDURE: COLONOSCOPY, REMOVE LESION; COMMENT: adenomas and hemorrhoids; repeat in 6 months using 48 hour 8 liter Colyte prep COLECTOMY 08/25/2016 - 08/24/2017 VEIN SURGERY 08/25/2023 - 08/24/2024 Medical History Medical History Date Comments Ulcer DX:Ulcer Drug abuse and dependence (C MS/HCC V24, CMS/HCC V28) DX:Drug abuse and dependence (HCC) Depression DX:Depression Anxiety DX:Anxiety Hepatitis C DX:Hepatitis C Spinal fracture DX:Spinal fractu re; COMMENT: Fall Seizure (CMS/HCC V24, CMS/HCC V28) DX:Seizure (HCC); COMMENT: Last 2004 - prior klonopin Varicose vein DX:Varicose vein Venous insufficiency DX:Venous i nsufficiency Chronic hepatitis C (CMS/HCC V24, CMS/HCC V28) 08/31/2013 DX:Chronic hepatitis C (HCC) Stasis ulcer of lower extrem ity (CMS/HCC V24, CMS/HCC V28) 08/31/2013 DX:Stasis ulcer of lower ex tremity (HCC) Delayed wound healing Constipation Family History Relation Name Status Comments Brother Alive throat cancer Father pacemaker Maternal Grandfather [place] Maternal Grandmother Breast cancer Mother Alive breast cancer, throat cancer Paternal Grandfather [place] Paternal Grandmother [place] Sister breast and thro at cancer Social [...] Description 12/24/2024 2:00 PM EDT Clinical Support [facility] [address] [place] [phone] Health Maintenance Due Date Last Done [...] - Risk 3-dose series) 2023 RSV Immunization Adult Patients (1 - Risk 60-74 years 1-dose series) 2023 COVID-19 Vaccine ( - season) 2024 08/06/2021, 12/13/2020, 11/22/2020 DTaP,Tdap,and Td Vaccines (3 - Td or Tdap) 09/01/2034 09/01/2024, 12/03/2012 Pneumococcal Vaccine: Pediatrics (0 to [...] age to complete this topic Meningococcal B Vaccine Aged Out No l onger eligible based on patient's age to complete [...] change(2024 5:11 PM EDT) No Angela Tidwell, ALIYAH Patient and Caregiver Understand Wound Care Education Care Plan Impaired Tissue On track( 025 2:46 PM EDT) No Angela Tidwell, frame wirer volume breakdown reduced by X% by week 4 Care Plan Impaired Tissue No Angela Tidwell, frame wirer volume breakdown reduced by X% by week 8 Care Plan Impaired Tissue No Yaw, Angela, frame wirer volume breakdown reduced by X% by week [...] exposed (CMS/HCC V24, CMS/HCC V28) DEBRIDEMENT Routine 11/10/2024 1:45 PM EDT Chronic venous hypertension (idiopathic) with ulcer of bilateral lower extremity (CODE) (CMS/HCC V24, CMS/HCC V28) Non-pressure chronic ulcer of other part of left lower leg with fat layer exposed (CMS/HCC V24, CMS/HCC V28) DEBRIDEMENT Routine 11/10/2024 1:45 PM EDT Chronic venous hypertension (idiopathic) with ulcer of bilateral lower extremity (CODE) (CMS/HCC V24, CMS/HCC V28) Non-pressure chronic ulcer of right ankle with fat layer exposed (CMS/HCC V24, CMS/HCC V28) DEBRIDEMENT Routine 09/16/2024 1:45 PM EST Chronic venous hypertension (idiopathic) with ulcer of bilateral lower extremity (CMS/HCC V24, CMS/HCC V28) Non-pressure chronic ulcer of unspecified part of left lower leg with fat layer exposed (CMS/HCC V24, CMS/HCC V28) DEBRIDEMENT Routine 09/16/2024 1:45 PM EST Chronic venous hypertension (idiopathic) with ulcer of bilateral lower extremity (CMS/HCC V24, CMS/HCC V28) Non-pressure chronic ulcer of right ankle with fat layer exposed (CMS/HCC V24, CMS/HCC V28) CT LUNG SCREENING LOW DOSE Routine 12/03/2021 3:50 PM EDT Personal history of nicotine dependence from Last 3 Months or Most Recently Relevant to Health Maintenance Results * Debridement Venous Ulcer Left;Lateral;Lower Leg [...] Ulcer Right;Medial;Lower Ankle (12/07/2024 2:00 PM EDT) Narrative Ajit Mendez [...] Result * Debridement Venous Ulcer Left;Lower;Lateral Leg (11/10/2024 1:45 PM EDT) Narrative Ajit Mendez MD - 11/10/2024 1:45 PM EDT SHANNAN Sullivan ? 11/10/2024 ??2:27 PM Debridement Venous Ulcer Left;Lower;Lateral Leg Performed by: SHANNAN Sullivan Authorized by: SHANNAN Sullivan ??Associated wounds: Wound Venous Ulcer 06/10/24 Leg Left;Lower;Lateral [...] Post Debridement: ??Fat layer exposed ??Time taken: ??11/10/2024 1:57 PM ??Length (cm): ??8.6 ??Width (cm): ??4.8 ??Depth (cm): ??0.1 ??Area (cm^2): ??41.28 ??Time taken: ??11/10/2024 1:58 PM ??Length (cm): ??8.6 ??Width (cm): ??4.8 ??Depth (cm): ??0.1 ??Percent Debrided (%): ??100 ??Surface Area (cm^2): ??41.28 ??Area Debrided (cm^2): ??41.28 ??Volume (cm^3): ??4.13 ??Tissue and other material debrided: dermis, epidermis and subcutaneous tissue ?Devitalized tissue debrided: biofilm, exudate, fibrin and slough ?Instrument: ??Curette ??Amount of bleeding: small ?Hemostasis obtained with: ??Pressure ??Procedural pain: ??0 ??Post-procedural pain: ??0 ??Response to treatment: ??Procedure was tolerated well us Meño CAMPBELL IN CLINIC/BEDSIDE ORDERABLE S Final Result * Debridement Venous Ulcer Right;Medial;Lower Leg (11/10/2024 1:45 PM EDT) Narrative Ajit Mendez MD - 11/10/2024 1:45 PM EDT SHANNAN Sullivan ? 11/10/2024 ??2:27 PM Debridement Venous Ulcer Right;Medial;Lower Leg Performed by: SHANNAN Sullivan Authorized by: SHANNAN Sullivan ??Associated wounds: Wound Venous Ulcer 06/10/24 Leg Right;Medial;Lower [...] Post Debridement: ??Fat layer exposed ??Time taken: ??11/10/2024 1:56 PM ??Length (cm): ??1.3 ??Width (cm): ??0.6 ??Depth (cm): ??0.2 ??Area (cm^2): ??0.78 ??Time taken: ??11/10/2024 1:57 PM ??Length (cm): ??1.3 ??Width (cm): ??0.6 ??Depth (cm): ??0.2 ??Percent Debrided (%): ??100 ??Surface Area (cm^2): ??0.78 ??Area Debrided (cm^2): ??0.78 ??Volume (cm^3): ??0.16 ??Tissue and other material debrided: dermis, epidermis and subcutaneous tissue ?Devitalized tissue debrided: biofilm, exudate, fibrin and slough ?Instrument: ??Curette ??Amount of bleeding: none ?Hemostasis obtained with: ??Not applicable ??Procedural pain: ??0 ??Post-procedural pain: ??0 ??Response to treatment: ??Procedure was tolerated well us Meño CAMPBELL IN CLINIC/BEDSIDE ORDERABLE S Final Result * Debridement Venous Ulcer Left;Lower;Lateral Leg (09/16/2024 [...] IN CLINIC/BEDSIDE ORDERABLE S Final Result * CT LUNG SCREENING LOW DOSE (12/03/2021 3:50 PM EDT) Anatomical Region Laterality Modality Computed Tomogra phy 11/30/2021 3:02 PM EDT Narrative 12/03/2021 3:50 PM EDT [facility] Diagnostic Imaging Department [address] [place] [address] [id number] Patient: ??KJ KWONG ?/Age/Sex: 1965 - 56 - M Unit#: ??[id number] ? Location/Status: ??SPDICATLS/REG CLI ? Mnemonic/Ordering Site: ??CTLUNGLD/SPCT Ordering Physician: ??CORONA GOLDSTEIN MD CT Lung Screening Low Dose - 11/30/21 - 1508 Indication: 43 pack-year smoking history (1pack/day for 43 years), active smoker Technique: Low-dose CT scan of the chest obtained as a lung cancer screening study. Multiplanar reformatted images were obtained. Scanner: Steek SA Dose reduction technique: ASIR (Adaptive statistical iterative [...] Note Jose Guadalupe Diallo MD - 08/14/2022 [facility] Diagnostic Imaging Department [address] [place] [id number] Patient: KJ KWONG /Age/Sex: 1965 - 56 - M Unit#: [id number] Location/Status: [facility] CLI Mnemonic/Ordering Site: [facility] Ordering Physician: CORONA GOLDSTEIN MD CT Lung Screening Low Dose - 11/30/21 - 1508 Indication: 43 pack-year smoking history (1pack/day for 43 years), activesmoker Technique: Low-dose CT scan of the chest obtained as a lung cancerscreening study. Multiplanar reformatted images were obtained. Scanner: Steek SA Dose reduction technique: ASIR (Adaptive statistical iterativereconstruction) [...] Sign date/Time: 12/03/21 1550 Corona Goldstein MD IM CT PROCEDURES Final Result from Last 3 Months or Most Recently Relevant to Health Maintenance Additional Health Concerns Active Problems Noted Date Diagnosed Date Impaired Tissue 08/16/2024 Education needed on impact of smoking on wound 1 10/17/2023 Education needed related to ulceration/compromised skin integrity. 08/16/2024 Insurance [facility] MEDICAID MEDICAID - [place] Care Teams [employer] Relationship Specialty Start Date End Date Gage Geronimo MD [address] [place] [phone] PCP - General Family Medicine 06/25/24
== END 2024-12-09 13:58 | disposition home or self-care (01) ==
LOC: HO.MAMMO 13:57
PROVIDERS: PCP Nurse Practitioner Family; Visit Provider Surgery
DX: N64.4 Mastodynia (principal)
CPT/HCPCS: 76642; 77062; 77066

== ENCOUNTER → 2024-12-09 14:00 | Outpatient (BNV) | payer OTHER, SELFPAY | PROVIDERS: PCP Nurse Practitioner Family; Visit Provider Internal Medicine | DX: N62 Hypertrophy of breast (principal) | CPT/HCPCS: 76642; 77066; G0279 ==

== ENCOUNTER 2025-06-17 15:05 | Outpatient (AMB) | payer OTHER, SELFPAY ==
--- NOTE | 2025-06-17 15:09 | MHC.OFFVIS ---
Vital Signs 06/17/25 15:10 Height 6 ft Weight 216 lb 4 oz BMI 29.3 BP 106/60 Blood Pressure Location Lt brachial Position Sitting Pulse 50 Pulse Source Pulse Oximeter Pulse Oximetry (%) 98 Oxygen Delivery Method Room Air Intake Visit Reasons: Joo dependence Allergies latex Allergy (Intermediate, Verified 06/17/25 15:13) Rash,Hives naproxen Allergy (Intermediate, Verified 06/17/25 15:13) Rash,Hives HPI HPI Joo dependence: Details: Kj is a pleasant 59 year old male, recent former 45 pack year smoker, with underlying PAD with ulceration, DVT, secondary hypercoagulable state, polysubstance abuse on Suboxone, hyperlipidemia, hepatitis-C, MDD, chronic thrombus of mesenteric vein and normocytic anemia. He was referred by PCP for pulmonary evaluation. He reports intermittent wheezing otherwise denies any respiratory symptoms however partner endorses labored breathing upon exertion. He denies prior h/o asthma/COPD. He reports significant smoking history smoked 1-1.5 ppd x 30 years, recently quit 2 months ago however will occasionally have a cigar on a weekly basis. He is enrolled in the lung screening program, last LDCT RADS2 and has upcoming LDCT scheduled 07/2025. 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 He denies h/o recurrent URI or hospitalizations related to respiratory distress. He denies seasonal allergies. He reports mother, smoker, with h/o lung cancer and COPD/emphysema. [facility] Medical History (Updated 06/20/25 @ 10:17 by Jenn Matthews NP) Cigar smoker motivated to quit Tobacco dependence Screen for colon cancer Hepatitis C Hx of blood clots Subtherapeutic anticoagulation Venous thromboembolism Peripheral vascular disease of lower extremity with ulceration Opioid use disorder Peripheral vascular disease of extremity Surgical History History of intestinal surgery Family History Mother Throat cancer Father No problems noted. Brother Lung cancer Social History Household Members: None and Other Household Members Other:: MOTHER Housing: Other Housing Other:: TRAILER Do you presently have visiting nurse or other home services: No (PREVIOUSLY NOT NOW) Alcohol intake: never Patient Tobacco Use Status: Former Tobacco user Tobacco use type: Cigar Years Smoked: (onset 12yo, 1ppd x 46yrs, now 2-3 cigars a day, 40pyh) e-Cigarette/Vaping Use: Never Used Second Hand Smoke Exposure: No service: No Current occupational status: disabled Gender identity: Male Cognitive needs: No Hearing needs: No Vision needs: No Review of Systems Const Denies chills, Denies excessive sweating, Denies fever(s), Denies headache(s) and Denies night sweats Eyes Denies dry eyes, Denies irritation and Denies itchy eyes ENT Reports Normal hearing present, Denies headache(s), Denies nasal congestion, Denies nasal discharge, Denies post nasal drip and Denies sore throat Card Denies chest pain, Denies chest pain at rest, Denies chest pain with activity, Denies claudication, Denies leg edema, Denies orthopnea and Denies paroxysmal nocturnal dyspnea Resp Denies chest congestion, Denies cough, Denies excessive phlegm production, Denies pain on inspiration, Denies pain with cough and Denies stridor Musc Denies myalgias Neuro Reports Normal hearing present and Denies headache(s) Endo Denies excessive sweating Oscar/Lymph Denies lymphadenopathy Aller/Immun Denies itchy eyes and Denies seasonal rhinorrhea Physical Exam Vital Signs: Last Vital Signs Pulse 50 06/17/25 15:10 BP 106/60 06/17/25 15:10 Pulse Ox 98 06/17/25 15:10 Oxygen Delivery Method Room Air 06/17/25 15:10 BMI result Body Mass Index 29.3 Const General: cooperative, comfortable, no acute distress and alert Nutritional Appearance: obese Orientation/consciousness: patient oriented x3 Limitations: no limitations HEENT Head: Yes normal to inspection, Yes normocephalic and Yes atraumatic Ears: hearing grossly normal bilaterally and external ears normal Eyes General: appearance normal, both eyes and all related structures Eyelids: Yes eyelids normal Sclerae: sclerae normal EOM: EOMs intact bilaterally Neck Neck: Yes normal visual inspection and Yes no lymphadenopathy Lymphatic: no lymphadenopathy noted Chest Chest palpation & inspection: normal inspection of the chest Resp Effort & Inspection: normal respiratory effort, able to speak in complete sentences, no audible wheezes, no cough, no stridor, not tachypneic, no tripod positioning and no use of accessory muscles Auscultation: diminished lung sounds Cardio Jugular venous distension: no JVD Rate: regular rate Rhythm: regular rhythm Skin Other: warm, dry General skin exam: no rashes or lesions noted Neuro General: patient oriented x3 Cranial nerves: Yes Normal hearing present Cognition (Neuro): normal cognition Gait exam (Neuro): Normal gait present Extrem General: Yes normal to inspection, Yes capillary refill normal, Yes no clubbing, cyanosis or edema and Yes no pedal edema Psych Appearance: grossly normal Speech and movement: Normal speech and movement present and Clear speech present Affect: normal affect Attitude: cooperative Thought process: Normal thought process present Thought content: Normal thought content present Insight: Good insight present (Psych) Judgement: Good judgement present (Psych) Assessment & Plan Assessment & Plan (1) Dyspnea on exertion: Code(s): R06.09 - Other forms of dyspnea Category: Medical (2) Tobacco dependence: Comment: (onset 12yo, 1ppd x 46yrs, now 2-3 cigars a day, 40pyh) quit 08/2024 Code(s): F17.200 - Nicotine dependence, unspecified, uncomplicated Category: Medical Plan Will send for PFT to assess for an obstructive defect contributing to dyspnea and wheezing, given smoking history. He is currently enrolled in the lung screening program and is scheduled for repeat LDCT 08/18. Prior LDCT 2023 RADS2. Smoking cessation reviewed, currently smoking 1 cigar weekly, not interested in cessation at this time. All questions were answered and patient is in agreement of plan. Will follow up to review results or sooner if needed. Orders: Orders PFT pulmonary function test Today R06.09 - Other forms of dyspnea Coding Level of Care Code New Pt Level 4 (26786) Diagnoses Dyspnea on exertion R06.09 Tobacco dependence F17.200
[2025-06-17 15:10] VITALS: BP 106/60; PULSE 50; O2SAT 98; BMI 29.3
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
--- OUTSIDE RECORDS SUMMARY | 2025-06-17 16:43 | XMS_ITS ---
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, limited to breakdown of skin ([facility] V24, [facility] V28) 05/11/2025 Non-pressure chronic ulcer o f other part of left lower leg with fat layer exposed ([facility] V24, [facility] V28) 04/06/2025 Chronic venous hypertension (idiopathic) with ulcer of bilateral lower extremity (CODE) ([facility] V24, [facility] V28) 11/10/2024 Chronic venous hypertension (idiopathic) with ulcer of bilateral lower extremity ([facility]/H[facility] V24, [facility] V28) 08/12/2024 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
== END 2025-06-17 15:53 | disposition home or self-care (01) ==
LOC: HO.HPSW 15:05
PROVIDERS: PCP Nurse Practitioner Family; Referring Provider Nurse Practitioner Family; Visit Provider Nurse Practitioner Family
DX: R06.09 Other forms of dyspnea (principal); F17.200 Nicotine dependence, unspecified, uncomplicated
CPT/HCPCS: 99204

== ENCOUNTER → 2025-06-17 15:05 | Outpatient (BNVA) | payer OTHER, SELFPAY | PROVIDERS: PCP Nurse Practitioner Family; Referring Provider Nurse Practitioner Family; Visit Provider Nurse Practitioner Family | DX: R06.09 Other forms of dyspnea (principal); F17.210 Nicotine dependence, cigarettes, uncomplicated | CPT/HCPCS: 99202 ==